=== PATIENT | male | born 1945 | race Caucasian/White ===

== ENCOUNTER → 2023-10-02 13:20 | Outpatient (REF) | payer MEDICARE, OTHER, SELFPAY ==
[2023-10-02 18:52] LABS: Urine Albumin Trace (Neg - Trace); Urine Bilirubin 1+ (Negative); Urine Character Clear (Clear); Urine Color Yellow; Urine Glucose Negative (Negative); Urine Ketone Trace (Negative); Urine Leukocyte Negative (Negative); Urine Nitrite Negative (Negative); Urine Occult Blood Trace (Negative); Urine Urobilinogen Negative (Neg - 1+)
[2023-10-02 19:18] LABS: Urine Red Blood Cell 0-2 /HPF (0-2); Urine White Cell 0-2 /HPF (0-5)
== END ==
LOC: CLAB 13:20
PROVIDERS: ATTENDING PHYSICIAN Specialist
DX: R31.29 Other microscopic hematuria (principal)
CPT/HCPCS: 81003; 81015

== ENCOUNTER 2024-07-13 20:06 | Inpatient (IN) | payer MEDICARE, OTHER, SELFPAY ==
[2024-07-13] VITALS (7 sets, daily range): BP systolic 103–136; BP diastolic 57–96; BMI 28.5
[2024-07-13 13:33] LABS: % Basophils 0.4 % (0-2); % Eosinophils 0.9 % (0-6); % Immature Granulocytes 0.5 % (0-0.5); % Lymphocytes 14.3 % (20.5-51.1); % Monocytes 8.6 % (1.7-9.3); % Neutrophils 75.3 % (42.2-75.2); Absolute Eosinophils 0.1 10^3/uL (0-0.7); Absolute Immature Granulocytes 0.1 10^3/uL (0-0.05); Absolute Lymphocytes 1.5 10^3/uL (1.2-3.4); Absolute Monocytes 0.9 10^3/uL (0.1-0.6); Absolute Neutrophils 7.8 10^3/uL (1.4-6.5); Hematocrit 43.2 % (39.0-52.0); Hemoglobin 14.4 g/dL (13.0-18.0); Mean Corp Hgb Conc. 33.3 g/dL (33.0-37.0); Mean Corpuscular Hgb 29.3 pg (27.0-31.0); Mean Platelet Volume 9.8 fL (7.4-10.4); Nucleated Red Blood Cells % 0 % (-); Platelet Count 147 10^3/uL (130-400); Red Blood Cell Count 4.91 10^6/uL (4.70-6.10); Red Cell Dist. Width 14.1 % (11.5-14.5); White Blood Cell Count 10.3 10^3/uL (4.8-10.8)
[2024-07-13 13:46] LABS: ALT (SGPT) 20 U/L (0-50); AST (SGOT) 22 U/L (17-59); Albumin 4.1 g/dl (3.5-5.0); Alkaline Phosphatase 132 U/L (38-126); Blood Urea Nitrogen 36 mg/dl (9-20); Carbon Dioxide 26 mmol/L (22-30); Chloride 106 mmol/L (98-107); Glucose 101 mg/dl (70-99); Potassium 4.7 mmol/L (3.5-5.1); Sodium 139 mmol/L (135-145); Total Bilirubin 0.6 mg/dl (0.2-1.3); Total Protein 6.7 g/dl (6.3-8.2); eGFR 56.93
[2024-07-13 13:53] LABS: APTT 27.1 Sec (23.4-35.0); INR 0.97; PT 13.2 Sec (11.4-14.6)
--- NOTE | 2024-07-13 16:10 | ED.GENMED ---
History of Present Illness
General
Chief Complaint: Circulation Problem
Time Seen by Provider: 07/13/24 15:48
History of Present Illness
History of Present Illness:
78-year-old male with history of hypertension, hyperlipidemia, and peripheral arterial disease presents to the emergency department for evaluation of bilateral lower extremity claudication. He reports having chronic, greater than 6 months of
claudication to the left lower extremity with progressive worsening paresthesias, over the past 1 to 2 days has developed similar symptoms in the right lower extremity. He states that he has significant tingling and discomfort even at rest however
pain dramatically worsens when ambulating. Prior history of AAA repair with endovascular graft. Continues to smoke more than a pack a day
Review of Systems
Review of Systems
Allergies reviewed?: Yes
All Other Systems: ROS reviewed and negative except as documented in HPI and ROS
Phy Exam
Physical Exam
Physical Exam:
GEN: Well appearing, NAD, WDWN
HEENT: Oral mucosa moist, no scleral icterus
Cardiac: Regular rate
Lung: No respiratory distress, no tachypnea
MSK: No gross deformity or injuries. Unable to locate DP pulses bilat, L PT pulse strong by doppler, unable to locate R PT pulse
Skin: Good color, no pallor or jaundice, no rashes
Neuro: AO x3, moves all extremities freely
Psych: Calm, cooperative
Course
Orders/Labs/Results
Orders:
Orders
07/13/24 Breakfast
Sodium, 2 Gram
At Your Request: Full Participation
Does patient need a safe tray?: No
Low Sodium: Cholesterol Lowering
07/13/24 13:25
Complete Blood Count/With Diff Urgent
Comprehensive Metabolic Panel Urgent
PT/INR [Prothrombin Time] Urgent
PTT Urgent
07/13/24 15:52
0.9% Sodium Chloride 1000 ml [Nss] 1,000 ml IV BOLUS
07/13/24 16:06
CT Abd Aorta Angio W/ Run Off Urgent
Comment:
Reason For Exam: B/L claudication/paresthesia, prior AAA repair
07/13/24 16:21
0.9% Sodium Chloride 1000 ml [Nss] 1,000 ml IV BOLUS
07/13/24 18:08
Heparin 7,000 units IV NOW STA
Nursing to Place Non Medication Order As Directed
Physician Order: PTT 6 hours after initial start of Heparin infusion
Above order entered?: Yes
07/13/24 18:15
Heparin 00732 Units/250 ml 25,000 units in 250 ml IV PER PROTOCOL
Weight to be used for heparin protocol in kilograms (kg):: 87.4
Protocol:: Vascular Surgery
PTT Goal Range to be used:: PTT 73 to 111 seconds
Order type:: Initial
INITIAL Infusion Dose (UNITS/KG/hr) & then follow protocol:: 18 units/kg/hr
Infusion Dose in UNITS/hr & then follow protocol (UNITS/hr):: 1,600
INFUSION RATE in mL/hr & then follow protocol (mL/hr):: 16
PTT less than or equal to 64 seconds:: Notify Ordering Provider. obtain orders for rate increase &
possible bolus
PTT 64.1 to 72.9 seconds:: Increase rate by 100 units/hr (+ 1 mL/hr)
PTT 73 to 111 seconds:: Target Range. No change in rate.
PTT 111.1 to 130.9 seconds:: Decrease rate by 100 units/hr (- 1 mL/hr)
PTT 131 to 199.9 seconds:: HOLD for 1 hour. Then decrease rate by 200 units/hr (- 2 mL/hr)
PTT greater than or equal to 200 seconds:: STOP INFUSION. Notify Ordering provider to obtain further orders.
Lab follow-up:: Each change, PTT q6h until 2 consecutive are therapeutic. Then PTT
daily.
07/13/24 19:16
Admit/Transfer Patient As Directed
Co-Sign Provider:
Level of Care: Inpatient admission
Assign to:: Telemetry
Physician / Group: Jarret
Diagnosis: RLE Ischemia
Reason for Telemetry: Arrhythmia
Date to Stop Telemetry: 07/16/24
Time to Stop Telemetry: 11:00
Reason for Hospitalization: Heparin drip
Expected length of stay greater than two midnights?: Yes
ELOS- Estimated Length of Stay in days: 3
I certify the patient meets the requirements for IP care: Yes
07/13/24 19:17
PRN Pain Medication Management As Directed
May give lesser potent ordered pain med per pt: Yes
preference::
Protocol:: Medication orders for pain may be administered in a
manner that supports deferring to patient preference
when the pt is:
- Requesting an ordered lesser potent pain medication.
Least to most potent pain medications are defined
as: acetaminophen < NSAID < tramadol < opioids
(morphine, oxycodone, hydromorphone).
- Requesting a lesser dose of the same medication IF
ORDERED.
- Requesting a less intrusive route of administration
if both routes are prescribed by the provider (PO <
IV).
07/13/24 19:18
Nicotine [Nicoderm Transdermal] 14 mg TRANSDERM NOW STA
07/13/24 19:19
Code Status As Directed
Resuscitation Status: Full Code
07/13/24 20:48
Acetaminophen [Tylenol] 650 mg PO Q4HPRN PRN
Amlodipine [Norvasc] 5 mg PO BID
07/13/24 20:48
Vascular Surgery Consult Routine
Consulting Provider: Bryan Daley III
Was physician already notified: Yes
Heparin Protocol- PTT Orders As Directed
PTT per Heparin protocol: -Obtain CBC and baseline PTT - if not already collected.
-Obtain PTT 6 hours from start of infusion. Then, every 6 hours until 2 consecutive
PTT's are therapeutic. Then, PTT Daily.
-With each rate change, obtain PTT every 6 hours until 2 consecutive PTT's are
therapeutic. Then, PTT Daily.
Activity As Directed
Activity Level: Out of Bed- Chair
Notify MD As Directed
Notify physician if: PTT is greater than or equal to 200.
Vital Signs As Directed
Frequency: Per unit guidelines
Weight As Directed
Frequency: Daily
Smoking Cessation Counseling [RESP] Routine
07/14/24 00:44
PTT Routine
07/14/24 Breakfast
NPO
Allow oral meds: Yes
Allow clear liquids: 4hrs prior to procedure
Comment: may have unrestricted clear liquid up to 4 hrs prior to scheduled procedure
Basic Metabolic Panel IN AM
Complete Blood Count/No Diff IN AM
Hgba1c [Glycohemoglobin (HgbA1c)] IN AM
Lipid Profile [Cardiovascular Evaluation] IN AM
07/14/24 08:00
Aspirin Low Dose EC [Aspir Low (Enteric Coated)] 81 mg PO DAILY
Finasteride [Proscar] 5 mg PO DAILY
Lisinopril [Zestril] 20 mg PO DAILY
Nicotine [Nicoderm Transdermal] 14 mg TRANSDERM DAILY
Oxybutynin Chloride [Ditropan] 2.5 mg PO BID
Pantoprazole [Protonix] 40 mg PO DAILY
Tiotropium Melissa 2.5 Mcg [Spiriva Respimat 2.5 Mcg] 2 puff INH R DAILY
07/14/24 18:00
Atorvastatin [Lipitor] 40 mg PO QPM
07/15/24 06:00
Complete Blood Count/No Diff Q2D
Comment: notify provider: Platelet count < 130,000 or decrease by 50% from baseline
07/16/24 11:00
DC Protocol for Telemetry ONCE
07/17/24 06:00
Complete Blood Count/No Diff Q2D
Comment: notify provider: Platelet count < 130,000 or decrease by 50% from baseline
07/19/24 06:00
Complete Blood Count/No Diff Q2D
Comment: notify provider: Platelet count < 130,000 or decrease by 50% from baseline
07/21/24 06:00
Complete Blood Count/No Diff Q2D
Comment: notify provider: Platelet count < 130,000 or decrease by 50% from baseline
07/23/24 06:00
Complete Blood Count/No Diff Q2D
Comment: notify provider: Platelet count < 130,000 or decrease by 50% from baseline
07/25/24 06:00
Complete Blood Count/No Diff Q2D
Comment: notify provider: Platelet count < 130,000 or decrease by 50% from baseline
07/27/24 06:00
Complete Blood Count/No Diff Q2D
Comment: notify provider: Platelet count < 130,000 or decrease by 50% from baseline
07/29/24 06:00
Complete Blood Count/No Diff Q2D
Comment: notify provider: Platelet count < 130,000 or decrease by 50% from baseline
Abnormal Lab Results
07/13/24
13:25
Abs Immat Gran (auto) 0.1 H 10^3/uL
(0-0.05)
Absolute Neuts (auto) 7.8 H 10^3/uL
(1.4-6.5)
Absolute Monos (auto) 0.9 H 10^3/uL
(0.1-0.6)
Neutrophils % 75.3 H %
(42.2-75.2)
Lymphocytes % 14.3 L %
(20.5-51.1)
BUN 36 H mg/dl
(9-20)
Glucose 101 H mg/dl
(70-99)
Alkaline Phosphatase 132 H U/L
(38-126)
07/13/24 13:25
03/31/25 13:25
Vital Signs
Initial and Last Documented VS:
Initial Vital Signs
Temp Pulse Resp BP Pulse Ox
98.8 F 87 20 124/76 96
07/13/24 13:09 07/13/24 13:09 07/13/24 13:09 07/13/24 13:09 07/13/24 13:09
Last Documented Vital Signs
Temp Pulse Resp BP Pulse Ox
98.8 F 76 17 127/82 97
07/13/24 13:09 07/13/24 21:22 07/13/24 21:22 07/13/24 21:22 07/13/24 21:22
MDM/Problems Addressed
MDM/Problems Addressed:
Imaging reveals critical limb ischemia predominantly of the right lower extremity but also severe high-grade stenosis of the left lower extremity. Case was discussed with vascular surgery who will see the patient in consultation, will admit for IV
heparin and further medical management
*Critical Care Note
Total Time (30-74mins, 75-104mins- exclusive of procedures): Not Applicable
ED Attending Note
-
Portions of this chart may have been created with voice recognition software.� Occasional wrong word or��sound alike� substitutions may have occurred due to the inherent limitations of voice recognition software.
Discharge Plan
Departure
Patient Disposition: Admit
Date of Disposition: 07/13/24
Time of Disposition: 18:44
Admit to: Med/Surg
Presentation/result/management discussed w/ accepting MD/DO: Hospitalist
Discharge Problem:
Critical limb ischemia of right lower extremity
Interventions
Interventions:
*Risk Screen - Suicide Last Done: 07/13/24 13:09
*General Assessment Last Done: 07/13/24 13:09
*Neglect/Abuse Screening Last Done: 07/13/24 16:55
*ED- Fall Risk Assessment Last Done: 07/13/24 15:50
*ED COVID-19 Vaccine History Last Done: 07/13/24 15:50
ED-Peripheral Vascular Assessment Last Done: 07/13/24 15:50
[2024-07-13] MEDS: NSS 1000 IV (16:21)
[2024-07-13] MEDS: HEPARIN 7000 UNITS IV (18:44)
[2024-07-13] MEDS: HEPARIN 25000 UNITS/250 ML IV (18:49)
--- NOTE | 2024-07-13 18:56 | W.PN.UPDATE ---
Update Note
Progress Note Update
Patient seen in conjunction with [facility]. I agree with the findings Physical. I concur with assessment and plan I stated otherwise.
Briefly, this is a 78-year-old male with past medical history significant for stable aortic abdominal aneurysm, hypertension, hyperlipidemia, history of carotid endarterectomy, LVH presenting to the emergency department with bilateral lower
extremity discomfort.
He reports having chronic, greater than 6 months of claudication to the left lower extremity with progressive worsening paresthesias, over the past 1 to 2 days has developed similar symptoms in the right lower extremity. He states that he has
significant tingling and discomfort even at rest however pain dramatically worsens when ambulating.
In the emergency department he was afebrile, blood pressure was 122/80 with a pulse of 87 and is satting 98% on room air. CBC was unremarkable stop electrolytes BUN/creatinine with stable with a creatinine of 1.3 which is his baseline.
CT angiogram of the abdomen pelvis with venous runoff shows here is an aortobiiliac endograft with stable size of the excluded aneurysm sac measuring 5.0 cm. There is a stable 5.5 cm suprarenal abdominal aortic aneurysm.
2. There is slightly increased size of the right common iliac artery aneurysm measuring 3.6 cm, previously 2.9 cm. There is complete occlusion of the proximal right superficial femoral artery with reconstitution at the level of the tibioperoneal
trunk. There is three-vessel runoff proximally without discrete opacification at the level of the ankle on initial images, however delayed images demonstrate single vessel runoff via the anterior tibial artery.. 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
3. There is similar size of the left common iliac artery dilation measuring 2.5 cm. 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 There
is one-vessel runoff at the level of the ankle via the peroneal vein.
4. Atrophic right kidney, unchanged.
5. Bilateral inguinal hernias with the left containing nonobstructed colon.
Assessment and plan
78-year-old with history of atherosclerotic disease status post carotid endarterectomy, hypertension, AAA which is stable appearing presenting to the emergency department with chronic claudication and found to have multiple all insufficiencies of
the lower extremities bilaterally including here is complete occlusion of the proximal right superficial femoral artery with reconstitution at the level of the tibioperoneal trunk. There is three-vessel runoff proximally without discrete
opacification at the level of the ankle on initial images, however delayed images demonstrate single vessel runoff via the anterior tibial artery.. 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
3. There is similar size of the left common iliac artery dilation measuring 2.5 cm. 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 There
is one-vessel runoff at the level of the ankle via the peroneal vein.
The plan is for neurovascular to attempt revascularization.
Will admit to [facility]
-Heparin drip
-Continue aspirin and statin and antihypertensive
-N.p.o. after midnight
-Vascular consult
Code Status - Full Code
--- NOTE | 2024-07-13 19:01 | HPS.HSE ---
Family Physician
-
Family Physician: Marcella Chavez
Chief Complaint
-
Numbness Right Lower Extremity
History of Present Illness
Patient is a 78 y/o male past medical history of peripheral artery disease s/p right carotid endarterectomy, AAA s/p endovascular repair, hypertension, hyperlipidemia, COPD and BPH who presents with numbness of the right lower extremity. Patient
reports symptoms consistent with claudication, reporting bilateral calf pain when mowing the lawn and weakness of the legs with activity for some time. Last night while sleeping his right lower extremity 'felt '. He called the vascular surgery
office who referred him to the emergency department for evaluation.
Medical History
Past Medical History
Past Medical History: Reports Other
Additional Past Medical History:
Peripheral Artery Disease
Essential Hypertension
Hyperlipidemia
COPD
BPH
GERD
Past Surgical History: Reports Other
Additional Past Surgical History:
Right Carotid Endarterectomy
Endovascular AAA Repair
Cholecystectomy
Social History
Tobacco: Smoker (1 PPD)
Alcohol: None
Family History
Family History: Not pertinent
Allergies / Home Medications
Allergies reflects when Allergies were last updated in [employer].
Home Medications with original date entered in [employer]
Allergy/Medication List:
Allergies
Allergy/AdvReac Type Severity Reaction Status Date / Time
No Known Allergies Allergy Verified 07/13/24 13:09
Home Medications
aspirin 81 mg tablet,delayed release (Ecotrin Low Strength) 81 mg PO DAILY 02/01/15
finasteride 5 mg tablet 5 mg PO DAILY 02/01/15
amlodipine 5 mg tablet 5 mg PO BID 03/12/18
atorvastatin 40 mg tablet 40 mg PO QPM 07/13/24
hydrochlorothiazide 25 mg tablet 25 mg PO QPM 07/13/24
omeprazole 40 mg capsule,delayed release 40 mg PO DAILY 07/13/24
oxybutynin chloride 5 mg tablet,extended release 24 hr 5 mg PO DAILY 07/13/24
tiotropium bromide 18 mcg capsule with inhalation device (Spiriva with HandiHaler) 1 cap inhalation R DAILY 07/13/24
trandolapril 2 mg tablet 2 mg PO DAILY 07/13/24
Review of Systems
-
A 12 point ROS was completed and negative except as noted: Yes
Constitutional: Denies Fever
Respiratory: Denies Cough or Trouble Breathing
Cardiac: Denies Chest Pain or Palpitations
Abdomen/GI: Denies Abdominal Pain, Nausea, Vomiting or Diarrhea
Physical Exam
Vital Signs
Vital Signs
Temp Pulse Resp BP Pulse Ox
98.8 F 87 20 122/80 98
07/13/24 13:09 07/13/24 13:09 07/13/24 13:09 07/13/24 15:49 07/13/24 15:50
Physical Exam
General: Comfortable and Conversant
HEENT: Anicteric, Moist mucous membranes and Other (Poor dentition)
Respiratory: Clear and Non Labored Respirations
Cardiac: S1/S2 and Regular Rhythm
GI: Soft and Non Tender
Musculoskeletal: No Clubbing, No Cyanosis and No Edema
Skin: Warm, Dry and Other (Skin is warm bilateral lower extremities)
Neuro: Awake, Alert, Oriented and Nonfocal/grossly intact
Psych: Calm
Laboratory Results
-
07/13/24 13:25
07/13/24 13:25
Laboratory Results
PT 13.2 Sec (11.4-14.6) 07/13/24 13:25
INR 0.97 07/13/24 13:25
APTT 27.1 Sec (23.4-35.0) 07/13/24 13:25
Total Bilirubin 0.6 mg/dl (0.2-1.3) 07/13/24 13:25
AST 22 U/L (17-59) 07/13/24 13:25
ALT 20 U/L (0-50) 07/13/24 13:25
Alkaline Phosphatase 132 U/L (38-126) H 07/13/24 13:25
Data Reviewed
-
Lab Data: Labs Reviewed by me
Impression/Plan
-
Right Lower Extremity Ischemia
-Consult Vascular Surgery
-Continue heparin drip
-NPO after midnight for possible intervention tomorrow
Peripheral Artery Disease s/p Right Carotid Endarterectomy
AAA s/p Endovascular Repair
-Continue aspirin
Essential Hypertension
-Continue amlodipine and trandolapril (or formulary substitute) with hold parameters
Hyperlipidemia
-Continue atorvastatin
COPD, no acute exacerbation
-Continue Spiriva
BPH
-Continue finasteride
GERD
-Continue Protonix
Tobacco Use Disorder / Nicotine Dependence
-Encourage smoking cessation
-Continue nicotine patch
DVT proph: Heparin drip
Code Status: Full Code
[2024-07-13] MEDS: NICODERM TRANSDERMAL 14 MG TRANSDERM (19:23)
[2024-07-13] MEDS: NORVASC 5 MG PO (21:19)
[2024-07-14] VITALS (16 sets, daily range): BP systolic 99–147; BP diastolic 61–111
[2024-07-14 01:27] LABS: APTT > 200 Sec (23.4-35.0)
[2024-07-14 03:56] LABS: Hematocrit 39.9 % (39.0-52.0); Hemoglobin 13.8 g/dL (13.0-18.0); Mean Corp Hgb Conc. 34.6 g/dL (33.0-37.0); Mean Corpuscular Hgb 30.3 pg (27.0-31.0); Mean Corpuscular Volume 87.7 fL (80.0-94.0); Platelet Count 129 10^3/uL (130-400); Red Blood Cell Count 4.55 10^6/uL (4.70-6.10); Red Cell Dist. Width 14.1 % (11.5-14.5); White Blood Cell Count 7.4 10^3/uL (4.8-10.8)
[2024-07-14 03:57] LABS: APTT 64.3 Sec (23.4-35.0)
[2024-07-14 04:25] LABS: Blood Urea Nitrogen 30 mg/dl (9-20); Calcium 9.6 mg/dl (8.4-10.2); Carbon Dioxide 26 mmol/L (22-30); Chloride 106 mmol/L (98-107); Estimated Creatinine Clearance 57 ml/min; Glucose 91 mg/dl (70-99); HDL Cholesterol 33 mg/dl; LDL Cholesterol, Calculated 55 mg/dl; Potassium 3.7 mmol/L (3.5-5.1); Sodium 139 mmol/L (135-145); Total Cholesterol 107 mg/dl (50-199); Triglyceride 98 mg/dl (10-149); Very Low Density Lipoprotein 19 mg/dl (0-30); eGFR > 60.00
[2024-07-14] MEDS: DITROPAN 2.5 MG PO ×2 (08:04→20:15)
[2024-07-14] MEDS: ASPIR LOW (ENTERIC COATED) 81 MG PO (08:04)
[2024-07-14] MEDS: ZESTRIL 20 MG PO (08:04)
[2024-07-14] MEDS: PROTONIX 40 MG PO (08:04)
[2024-07-14] MEDS: PROSCAR 5 MG PO (08:04)
[2024-07-14] MEDS: NORVASC 5 MG PO (08:05)
[2024-07-14] MEDS: NICODERM TRANSDERMAL 14 MG TRANSDERM (08:06)
--- NOTE | 2024-07-14 09:00 | W.PN.HOSP.TC ---
Today's Communication/Plan
-
Ongoing discussion between vascular and patient regarding treatment and timing
Heparin ggt for now
Assessment / Plan
Assessment / Plan
78-year-old male with past medical history of peripheral artery disease status post right carotid endarterectomy, AAA status post endovascular repair presents to [facility] with numbness of the right lower extremity. On FC T, complete
occlusion of proximal right superficial femoral artery noted along with occluded proximal popliteal artery aneurysm. 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
CT IMPRESSION:
1. There is an aortobiiliac endograft with stable size of the excluded aneurysm sac measuring 5.0 cm. There is a stable 5.5 cm suprarenal abdominal aortic aneurysm.
2. There is slightly increased size of the right common iliac artery aneurysm measuring 3.6 cm, previously 2.9 cm. There is complete occlusion of the proximal right superficial femoral artery with reconstitution at the level of the tibioperoneal
trunk. There is three-vessel runoff proximally without discrete opacification at the level of the ankle on initial images, however delayed images demonstrate single vessel runoff via the anterior tibial artery.. 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
3. There is similar size of the left common iliac artery dilation measuring 2.5 cm. 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 There
is one-vessel runoff at the level of the ankle via the peroneal vein.
4. Atrophic right kidney, unchanged.
5. Bilateral inguinal hernias with the left containing non-obstructed colon.
#Right lower extremity ischemia
-Continue heparin drip
-Vascular surgery appreciated
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
-Discussion regarding timing ongoing between vascular and patient
-Diet today as no operation planned for today
# Extensive peripheral artery disease
-History of right carotid endarterectomy
-History of AAA status post endovascular repair
-Continue aspirin
#thrombocytopenia
-close to normal limits 129
-Monitor
#Hypertension
� Continue amlodipine and trandolapril
#Hyperlipidemia
-Continue statin
#COPD
-Not in acute exacerbation
-Continue Spiriva
#BPH/overactive bladder
-Continue finasteride
-Continue oxybutynin
#GERD
-continue Protonix
#Tobacco use disorder
-Smoking 1 pack of cigarettes per day since the age of 11
-Continue nicotine patch
-Encourage smoking sensation
DVT Heparin ggt
Full Code
Anticipated Discharge: > 48 hours
Subjective/Interval History
-
Date of Service: July 14, 2024
Objective Data
-
Labs:
Laboratory Results
07/14/24 07/14/24 07/14/24
00:36 03:39 03:40
WBC 7.4
Hgb 13.8
Hct 39.9
Plt Count 129 L
APTT > 200 H* 64.3 H
Sodium 139
Potassium 3.7
Chloride 106
Carbon Dioxide 26
BUN 30 H
Creatinine 1.1
Glucose 91
Calcium 9.6
07/14/24
11:00
WBC
Hgb
Hct
Plt Count
APTT Pending
Sodium
Potassium
Chloride
Carbon Dioxide
BUN
Creatinine
Glucose
Calcium
Vital Signs:
Vital Signs
Temp Pulse Resp BP Pulse Ox
97.7 F 91 18 128/75 93
07/14/24 07:30 07/14/24 08:05 07/14/24 07:30 07/14/24 08:05 07/14/24 07:30
I&O
07/13/24 07/14/24 07/15/24
06:59 06:59 06:59
Output Total 950 / 950
Balance -950 / -950
Review of Systems
-
History Source: Patient
Constitutional: Reports No Symptoms
EENT: Reports No Symptoms Reported
Respiratory: Reports No Symptoms
Cardiac: Reports No Symptoms
Abdomen/GI: Reports No Symptoms
Genitourinary: Reports No Symptoms
Musculoskeletal: Reports Other (Right lower extremity numbness, pain with exertion )
Neuro: Reports No Symptoms
Physical Exam
-
General: No Apparent Distress
HEENT: Normocephalic
Respiratory: Clear to Auscultation
Cardiac: Regular Rhythm and S1/S2
GI: Soft, Nontender, Nondistended and Normal Bowel Sounds
Musculoskeletal: No Edema and Other (Peripheral pulses intact )
Skin: Warm and Dry
Neuro: AO x 3
[2024-07-14 09:44] LABS: Glycohemoglobin (HgbA1c) 5.7 % (4.0-5.6)
--- NOTE | 2024-07-14 10:24 | CON.VAS ---
Addendum entered and electronically signed by Renuka HUONG Ochoa 07/21/24 09:33:
Patient's transition to scheduling vascular surgical intervention for right lower extremity PAD has been complicated by a positive stress test which led to a cardiac catheterization and successful PCI to mid right coronary artery. He underwent
diagnostic right lower extremity angiogram yesterday with Dr. Bryan Daley III, revascularization plan for right lower extremity would include RIGHT redo groin dissection, possible need for femoral endarterectomy, iliac artery stent placement for
coverage of iliac artery aneurysm distal to prior stent placement and coil embolization of internal iliac artery, he will also require SFA to AT arterial bypass with propatent graft. However, patient has indicated on several occasions that he is
not willing to stay much longer inpatient due to his social economic concerns at home (his has advanced stage pancreatic cancer). Over discussion with patient it seems best solution would be to discharge him and then bring him back in short
interval as an outpatient for above recommended surgery. Patient indicates he is agreeable to this plan, as it gives him some time to go home to care for his and arrange care in the future for her while he requires admission following vascular
surgical intervention. I provided patient education and stressed in great detail his continued compliance with follow-up with not just as but also cardiology and PCP going forward if he wants to have optimal outcomes. I also stressed that not
complying with recommended surgery could lead to limb loss or even (as patient stated he would never be agreeable to amputation). He reiterated education and provided understanding. I also provided education in great detail of worsening
signs and symptoms of ischemia including increased rest pain, discoloration to digits, coolness, paresthesia, or increased/changed pain from baseline, I then stressed if any signs or symptoms occur of worsening ischemia or any concerning change to
his baseline claudication symptoms he should present to ED immediately. He again verbalized understanding of teaching. We will have our office air conditioning technician reach out to patient to schedule his surgery. I reviewed this plan with the medical team via
[place] text, and all parties are in agreement. This plan was also reviewed with my attending Dr. Bryan Daley III, he is also in agreement.
Addendum entered and electronically signed by Bryan Daley III, MD 07/14/24 13:32:
This patient was seen and examined in collaboration with HUONG Becerril. I agree with the history and physical exam as well as the assessment and plan. I have the following additions:
78-year-old male with previous endovascular aortic stent grafting and carotid endarterectomy
Lost to follow-up
Continues to smoke a pack a day
Chronic bilateral lower extremity claudication that has progressed recently
Reports symptoms consistent with rest pain for months to years in his lower extremities
No open wounds or ulcerations
Had an exacerbation of discomfort in the right leg that brought him to the emergency department yesterday
CT angiogram personally reviewed and reveals patent aortic stent graft. Right common iliac artery aneurysm distal to the end of the iliac limb measuring 3.5 cm. Patent right external iliac artery. Calcified common femoral artery. Occluded right
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
On physical exam is gross neuro motor function in the legs, feet and toes is intact. Feet are pink. No open wounds or ulcerations. Monophasic Doppler signals are identified in the dorsalis pedis and posterior tibial artery on the right.
Currently has no pain.
We provided him an option to continue with workup and intervention which will likely include endovascular intervention on his right common iliac aneurysm coupled with open revascularization of his right lower extremity occlusive disease.
Unfortunately he has significant lower extremity venous disease as well and has had prior vein stripping which will likely make vein conduit suboptimal. Lower extremity distal bypass with prosthetic is less than ideal. The technical aspects of
this procedure were discussed with him in detail. The benefits and rationale for this approach were discussed with him in detail. Operative risks were discussed with him in detail.
Unfortunately he has a with advanced pancreatic cancer. He is worried about leaving her at home for prolonged hospital stay and postsurgical recovery. He may want to leave and continue diagnostic workup and management as an outpatient so that
he can care for his .
We will nan[place]k back with him later this afternoon to determine how he would like to proceed. I discussed this in detail with the hospitalist caring for the patient.
Signed:
Bryan Daley III, MD
[facility]
[phone] ([id number])
Original Note:
Consultation
Consultation Request
Date/Time Consultation Performed: 07/14/24
Requesting Provider: Hospitalist
Performing Provider: Renuka Lee, TRAPPER BIRD-C for Bryan Daley III, MD
Reason for Consultation: Right lower extremity pain concern for claudication
Medical History
-
Chief Complaint: Right lower extremity pain
History of Present Illness:
This is a 78-year-old male with significant past medical history for COPD, GERD, hypertension, carotid stenosis, AAA, and peripheral arterial disease who presented to outside hospital on 07/13/2024 with reports of worsening right lower extremity pain
and paresthesia. Patient endorses that he has been having ongoing chronic bilateral lower extremity claudication-like pain but normally is able to 'power through 'and walk distances as needed, including walking his dog. However, over the past 3 to
4 days he has noted increasing claudication pain at his right lower extremity particularly that is now limited his ability to walk desired distances and intermittently wakes him at night. He does have a history of peripheral arterial disease and
endovascular repair of AAA [place] [address] Chi Wheeler. He notes that he was lost to follow-up and has not seen a vascular provider in roughly 9 years. He also has a distant history of right carotid endarterectomy, which she has also not
followed up with routine surveillance or monitoring. ED workup included CT angio with runoff which demonstrated increased size of right common iliac artery aneurysm with complete occlusion of right SFA, with occluded popliteal artery aneurysm but
one-vessel runoff to the foot. Patient currently endorses that he is comfortable with well-managed pain at right foot.
Past Medical History
Past Medical History: COPD, GERD, HTN and Other (Peripheral arterial disease, carotid stenosis, BPH, hyperlipidemia, AAA)
Past Surgical History: Other (Right Carotid Endarterectomy, Endovascular AAA Repair, Cholecystectomy)
Social History
Tobacco: Smoker (1 pack/day)
Drug: None
Personal:
Living: With Family
Allergies / Home Medications
Allergy/AdvReac Type Severity Reaction Status Date / Time
No Known Allergies Allergy Verified 07/13/24 13:09
�Medication �Instructions �Recorded �Confirmed �Type
aspirin 81 mg tablet,delayed 81 mg PO DAILY 02/01/15 07/13/24 History
release (Ecotrin Low Strength)
finasteride 5 mg tablet 5 mg PO DAILY 02/01/15 07/13/24 History
amlodipine 5 mg tablet 5 mg PO BID 03/12/18 07/13/24 History
atorvastatin 40 mg tablet 40 mg PO QPM 07/13/24 07/13/24 History
hydrochlorothiazide 25 mg tablet 25 mg PO QPM 07/13/24 07/13/24 History
omeprazole 40 mg capsule,delayed 40 mg PO DAILY 07/13/24 07/13/24 History
release
oxybutynin chloride 5 mg 5 mg PO DAILY 07/13/24 07/13/24 History
tablet,extended release 24 hr
tiotropium bromide 18 mcg capsule 1 cap inhalation R DAILY 07/13/24 07/13/24 History
with inhalation device (Spiriva
with HandiHaler)
trandolapril 2 mg tablet 2 mg PO DAILY 07/13/24 07/13/24 History
Review of Systems
-
History Source: Patient
Constitutional: Reports No Symptoms
EENT: Reports No Symptoms
Respiratory: Reports No Symptoms
Cardiac: Reports No Symptoms
Vascular: Reports Leg Pain / Claudication, Numbness and Tingling
Abdomen/GI: Reports No Symptoms
: Reports No Symptoms
Musculoskeletal: Reports Edema (Bilateral lower extremities with trace edema)
Skin: Reports No Symptoms
Neurological: Reports No Symptoms
Endocrine: Reports No Symptoms
Physical Exam
Vital Signs
Temp Pulse Resp BP Pulse Ox
97.7 F 91 18 128/75 93
07/14/24 07:30 07/14/24 08:05 07/14/24 07:30 07/14/24 08:05 07/14/24 07:30
Lab Results
07/14/24 03:40
07/14/24 03:39
Physical Exam
General: No Apparent Distress
HEENT: Normocephalic, Anicteric and Atraumatic
Respiratory: Non Labored Respirations
Cardiac: Negative JVD
GI: Soft, Non Tender and Non Distended
Musculoskeletal: Edema (Bilateral lower extremities with trace edema)
Skin: Dry
Neuro: AO x 3
Pulses: Bilateral Femoral: +1, Right Dorsalis Pedis: Doppler and Right Posterior Tibial: Doppler
Assessment / Plan
-
Assessment: 78-year-old male with right lower extremity pain and significant peripheral arterial disease, suspect a component of chronicity.
Plan:
Patient will require extensive surgical revascularization to improve claudication/rest pain including right femoral endarterectomy with right arterial bypass, and right iliac artery stenting for increasing aneurysm. Patient was seen and examined
with Dr. Bryan Daley III, who reviewed in detail what surgical options he would recommend for the patient. Patient verbalized his concern for a prolonged hospitalization as his is at home with stage IV pancreatic cancer and he is her sole
caregiver. Since patient has Doppler signals, we also could consider discharging patient on oral anticoagulation and bring him back for scheduled surgery in short interval. Patient has requested time to consider his options and review them with
his . We will revisit patient to review his decision.
In the meantime we will also obtain ultrasound vein mapping and baseline GURU/TBI
Final surgical plan and recommendations per attending Dr. Bryan Daley III
[2024-07-14] MEDS: SPIRIVA RESPIMAT 2.5 MCG 2 PUFF INH (10:32)
[2024-07-14 11:20] LABS: APTT 47.1 Sec (23.4-35.0)
--- NOTE | 2024-07-14 13:13 | W.PN.UPDATE ---
Update Note
Progress Note Update
I saw and evaluated the patient. I reviewed the resident�s note and agree with findings and plan as documented in the resident�s note.
CTA a/p
1. There is an aortobiiliac endograft with stable size of the excluded aneurysm sac measuring 5.0 cm. There is a stable 5.5 cm suprarenal abdominal aortic aneurysm.
2. There is slightly increased size of the right common iliac artery aneurysm measuring 3.6 cm, previously 2.9 cm. There is complete occlusion of the proximal right superficial femoral artery with reconstitution at the level of the tibioperoneal
trunk. There is three-vessel runoff proximally without discrete opacification at the level of the ankle on initial images, however delayed images demonstrate single vessel runoff via the anterior tibial artery.. 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
3. There is similar size of the left common iliac artery dilation measuring 2.5 cm. 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 There
is one-vessel runoff at the level of the ankle via the peroneal vein.
4. Atrophic right kidney, unchanged.
5. Bilateral inguinal hernias with the left containing nonobstructed colon.
PAD
Right lower limb ischemia
-CT abdomen pelvis report as above
-Art Doppler ordered
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
is on 27 july.
Peripheral Artery Disease s/p Right Carotid Endarterectomy
AAA s/p Endovascular Repair
-Continue aspirin
Essential Hypertension
-Continue amlodipine and trandolapril (or formulary substitute) with hold parameters
Hyperlipidemia
-Continue atorvastatin
COPD, no acute exacerbation
-Continue Spiriva
BPH
-Continue finasteride
GERD
-Continue Protonix
Tobacco Use Disorder / Nicotine Dependence
-Encourage smoking cessation
-Continue nicotine patch
DVT prophylaxis : heparin subq
Code Status: Full Code
--- NOTE | 2024-07-14 13:30 | W.PN.UPDATE ---
Update Note
Progress Note Update
Came back to bedside to see if patient had made decision about proceeding with surgery while inpatient or electing to go home and have short interval outpatient follow-up, patient states that he and his still have not made a decision and would
like that we come back again at a later time.
[2024-07-14] MEDS: HEPARIN 25000 UNITS/250 ML IV (14:35)
--- NOTE | 2024-07-14 17:43 | VATNOTE ---
L Arm AC IV line d/c due to infiltrate. Pt is on a heparin drip site with excessive bleeding after pressue applied. Pressure dressing applied with multpile 2x2 gauge and joseph wrap. PCN made aware.
[2024-07-14] MEDS: LIPITOR 40 MG PO (18:09)
--- NOTE | 2024-07-14 18:23 | PTCARENOTE ---
Pt's PTT was 47.1 this afternoon, per Heparin gtt orders, physician notified as per protocol. No new orders were placed. I again reached out to the physican that orders were need to adjust the gtt. Attending deligated to resident. Pharacy notified
by to assist w/ dose. Heparin gtt remained at 1700 units/hr during this time. Once orders were obtained, 6hrs had passed since inital PTT assessment. PTT sent @ 1740, pensing. Will review results and follow protocol.
[2024-07-14] MEDS: NORVASC PO (20:15)
[2024-07-15 00:18] LABS: APTT 147.3 Sec (23.4-35.0)
[2024-07-15 03:35] VITALS: BP 92/66
[2024-07-15 05:27] VITALS: BMI 27.9
[2024-07-15 07:35] VITALS: BP 130/65
[2024-07-15] MEDS: PROTONIX 40 MG PO (07:44)
[2024-07-15] MEDS: DITROPAN 2.5 MG PO ×2 (07:46→19:52)
[2024-07-15] MEDS: NORVASC 5 MG PO (07:46)
[2024-07-15] MEDS: ZESTRIL 20 MG PO (07:46)
[2024-07-15] MEDS: ASPIR LOW (ENTERIC COATED) 81 MG PO (07:46)
[2024-07-15] MEDS: PROSCAR 5 MG PO (07:46)
[2024-07-15] MEDS: NICODERM TRANSDERMAL 14 MG TRANSDERM (07:47)
--- NOTE | 2024-07-15 07:57 | W.PN.HOSP.TC ---
Today's Communication/Plan
-
Cont heparin ggt
vascular surgery date per vascular
Assessment / Plan
Assessment / Plan
78-year-old male with past medical history of peripheral artery disease status post right carotid endarterectomy, AAA status post endovascular repair presents to [facility] with numbness of the right lower extremity. On FC T, complete
occlusion of proximal right superficial femoral artery noted along with occluded proximal popliteal artery aneurysm. 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
CT IMPRESSION:
1. There is an aortobiiliac endograft with stable size of the excluded aneurysm sac measuring 5.0 cm. There is a stable 5.5 cm suprarenal abdominal aortic aneurysm.
2. There is slightly increased size of the right common iliac artery aneurysm measuring 3.6 cm, previously 2.9 cm. There is complete occlusion of the proximal right superficial femoral artery with reconstitution at the level of the tibioperoneal
trunk. There is three-vessel runoff proximally without discrete opacification at the level of the ankle on initial images, however delayed images demonstrate single vessel runoff via the anterior tibial artery.. 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
3. There is similar size of the left common iliac artery dilation measuring 2.5 cm. 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 There
is one-vessel runoff at the level of the ankle via the peroneal vein.
4. Atrophic right kidney, unchanged.
5. Bilateral inguinal hernias with the left containing non-obstructed colon.
#Right lower extremity ischemia
-Continue heparin drip
-Vascular surgery appreciated
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
-Pt decided he wanted to stay to do the procedure
-Diet today as no operation planned for today - likely saturday
-Cardiology consult for pre-op clearance
# Extensive peripheral artery disease
-History of right carotid endarterectomy
-History of AAA status post endovascular repair
-Continue aspirin
#thrombocytopenia
-Monitor
#Hypertension
� Continue amlodipine and trandolapril
#Hyperlipidemia
-Continue statin
#COPD
-Not in acute exacerbation
-Continue Spiriva
#BPH/overactive bladder
-Continue finasteride
-Continue oxybutynin
#GERD
-continue Protonix
#Tobacco use disorder
-Smoking 1 pack of cigarettes per day since the age of 11
-Continue nicotine patch
-Encourage smoking sensation
DVT Heparin ggt
Full Code
Anticipated Discharge: > 48 hours
Subjective/Interval History
-
Date of Service: July 15, 2024
Objective Data
-
Labs:
Laboratory Results
07/14/24 07/15/24
23:54 07:50
WBC Pending
Hgb Pending
Hct Pending
Plt Count Pending
APTT 147.3 H Pending
Sodium Pending
Potassium Pending
Chloride Pending
Carbon Dioxide Pending
BUN Pending
Creatinine Pending
Glucose Pending
Calcium Pending
Vital Signs:
Vital Signs
Temp Pulse Resp BP Pulse Ox
98.0 F 63 14 130/65 97
07/15/24 07:35 07/15/24 07:46 07/15/24 07:35 07/15/24 07:46 07/15/24 07:35
I&O
07/14/24 07/15/24 07/16/24
06:59 06:59 06:59
Intake Total 1404 / 1404
Output Total 950 / 950
Balance -950 / -950 1404 / 1404
Review of Systems
-
History Source: Patient
Constitutional: Reports No Symptoms
EENT: Reports No Symptoms Reported
Respiratory: Reports No Symptoms
Cardiac: Reports No Symptoms
Abdomen/GI: Reports No Symptoms
Musculoskeletal: Reports Other (Right leg numbness )
Neuro: Reports No Symptoms
Physical Exam
-
General: No Apparent Distress and Comfortable
Respiratory: Clear to Auscultation
Cardiac: Regular Rhythm and S1/S2
GI: Soft, Nontender, Nondistended and Normal Bowel Sounds
Musculoskeletal: Other (Distal pulses intact )
Neuro: AO x 3
Psych: Calm
[2024-07-15] MEDS: SPIRIVA RESPIMAT 2.5 MCG 2 PUFF INH (08:06)
[2024-07-15 08:07] LABS: Hematocrit 41.6 % (39.0-52.0); Mean Corp Hgb Conc. 33.7 g/dL (33.0-37.0); Mean Corpuscular Hgb 29.5 pg (27.0-31.0); Mean Corpuscular Volume 87.8 fL (80.0-94.0); Mean Platelet Volume 9.7 fL (7.4-10.4); Platelet Count 134 10^3/uL (130-400); Red Blood Cell Count 4.74 10^6/uL (4.70-6.10); Red Cell Dist. Width 14.4 % (11.5-14.5)
[2024-07-15 08:16] LABS: APTT 136.5 Sec (23.4-35.0)
--- NOTE | 2024-07-15 09:08 | W.PN.UPDATE ---
Update Note
Progress Note Update
Informed by hospitalist and resident that patient has decided to stay inpatient for right lower extremity arterial bypass, tentative plan is for OR on 07/17/2024 for diagnostic right lower extremity angiogram in order to determine bypass target
points, and then we will plan for arterial bypass early next week. He should continue on heparin drip for anticoagulation. He will also require cardiology evaluation for clearance given his longstanding history of peripheral arterial disease,
smoking, and medical noncompliance with follow-up. Plan relayed to hospitalist.
[2024-07-15] MEDS: HEPARIN 25000 UNITS/250 ML IV ×2 (10:13→15:28)
--- NOTE | 2024-07-15 10:39 | CM ---
CM following rte: discharge planning.
Reviewed pt's cart, met with pt.
Pt is a 78 year old male, admitted with primary dx of Right lower extremity ischemia. PMH includes: PMH includes: peripheral artery disease status post right carotid endarterectomy, AAA status post endovascular repair
Pt reports he lives with spouse and 2 dogs in a 2SH, 3 steps to enter, has no children. Pt described himself as independent in all areas [employer], does not use any mobile devices, drives.
PCP: Marcella Chavez
[facility]
D/C plan: home with anticipated no needs. Spouse to transport at discharge.
CM will follow with discharge plan updates as hospitalization progresses
[2024-07-15 12:24] VITALS: BP 123/65
[2024-07-15 12:36] LABS: Blood Urea Nitrogen 34 mg/dl (9-20); Calcium 9.9 mg/dl (8.4-10.2); Carbon Dioxide 25 mmol/L (22-30); Chloride 107 mmol/L (98-107); Estimated Creatinine Clearance 48 ml/min; Glucose 91 mg/dl (70-99); Sodium 140 mmol/L (135-145); eGFR 56.93
--- NOTE | 2024-07-15 12:54 | CON.CAR ---
Addendum entered and electronically signed by Josiah Shaikh MD 07/15/24 15:19:
I saw and examined the patient.
The Antiquer's note was reviewed and I agree with the note.
Comment:
GEN: No distress, awake, Ox3
HEENT: supple, anicteric, mmm
LUNGS: CTA, no wheezes/rales
CV: Reg, S1/S2, 1/6 syst LSB, no gallop
ABD: soft, BS+, NT/ND
EXT: R foot swelling
NEURO: Gross non-focal
SKIN: No rash
Plan:
78-year-old male with past medical history of severe peripheral vascular disease, AAA repair, carotid artery disease, hypertension, hyperlipidemia and continued tobacco abuse presents with occlusion of right proximal SFA and popliteal artery
aneurysm. Plan is for angiogram with likely lower extremity revascularization early next week. We are asked to see him preoperatively.
Mr. Arias is unable to perform 4 metabolic equivalents and has a coronary artery disease equivalent with multiple risk factors for CAD including hypertension hyperlipidemia and current tobacco abuse. Check ECG.
We will check a Lexiscan nuclear stress test and echocardiogram prior to his surgery.
Continue amlodipine, lisinopril, aspirin, atorvastatin, and IV heparin.
LDL 55.
We discussed the importance of smoking cessation and I will continue the nicotine patch while hospitalized.
Original Note:
Consultation
Consultation Request
Date/Time Consultation Performed: 07/15/24
Requesting Provider: Dr. Capps
Performing Provider: Maxine Neal PA-C for Dr. Shaikh
Reason for Consultation: preop evaluation
Medical History
-
Chief Complaint: altered sensation RLE
History of Present Illness:
Patient is a 78 yo M with PMH of AAA repair with endovascular graft, iliac artery aneurysms, carotid disease s/p R CEA, HTN, HLD, ongoing tobacco use who presented to due to altered sensation to RLE noted over the last several days prior to
admission. He reports feeling of RLE heaviness. He also reports he has been dealing with LLE claudication. By imaging patient noted to have complete occlusion of prox R SFA, occluded prox popliteal artery aneurysm, high grade stenosis of distal
superficial femoral artery with partially thrombosed aneurysm of prox popliteal artery. Planned for angiogram with vascular on 07/17 with likely RLE bypass surgery early next week. Cardiology consulted for preop evaluation. Patient reports activity
has been limited by leg discomfort/claudication, however denies CP, SOB. He continues to smoke.
PMH:
AAA repair with endovascular graft
iliac artery aneurysms
carotid disease s/p R CEA
HTN
HLD
ongoing tobacco use
Past Medical History
Past Medical History: Other (in HPI)
Social History
Tobacco: Smoker
Alcohol: None
Personal:
Living: With Family
Employment: Retired
Family History
Family History: Reviewed & Not Pertinent
Allergies / Home Medications
Allergy/AdvReac Type Severity Reaction Status Date / Time
No Known Allergies Allergy Verified 07/13/24 13:09
�Medication �Instructions �Recorded �Confirmed �Type
aspirin 81 mg tablet,delayed 81 mg PO DAILY 02/01/15 07/13/24 History
release (Ecotrin Low Strength)
finasteride 5 mg tablet 5 mg PO DAILY 02/01/15 07/13/24 History
amlodipine 5 mg tablet 5 mg PO BID 03/12/18 07/13/24 History
atorvastatin 40 mg tablet 40 mg PO QPM 07/13/24 07/13/24 History
hydrochlorothiazide 25 mg tablet 25 mg PO QPM 07/13/24 07/13/24 History
omeprazole 40 mg capsule,delayed 40 mg PO DAILY 07/13/24 07/13/24 History
release
oxybutynin chloride 5 mg 5 mg PO DAILY 07/13/24 07/13/24 History
tablet,extended release 24 hr
tiotropium bromide 18 mcg capsule 1 cap inhalation R DAILY 07/13/24 07/13/24 History
with inhalation device (Spiriva
with HandiHaler)
trandolapril 2 mg tablet 2 mg PO DAILY 07/13/24 07/13/24 History
Review of Systems
-
History Source: Patient and Family
All other systems: Negative unless noted
Physical Exam
Vital Signs
Temp Pulse Resp BP Pulse Ox
97.6 F 72 22 123/65 99
07/15/24 12:24 07/15/24 12:24 07/15/24 12:24 07/15/24 12:24 07/15/24 12:24
Lab Results
07/15/24 07:50
07/15/24 07:50
Physical Exam
General: No Apparent Distress and Comfortable
HEENT: Normocephalic, Anicteric and Moist Mucous Membranes
Respiratory: Clear and Non Labored Respirations
Cardiac: S1/S2 and Regular Rhythm
GI: Soft, Non Tender, Non Distended and Normal Bowel Sounds
Musculoskeletal: No Clubbing, No Cyanosis and Other (varicose veins B/L LE)
Skin: Warm and Dry
Neuro: AO x 3
Impression / Plan
-
Primary Golf Tournament Consultant: last seen by Dr. Wheeler in 2014
Assessment:
Presentation with altered sensation/pain to RLE
PAD/RLE ischemia
AAA repair with endovascular graft
iliac artery aneurysms
carotid disease s/p R CEA
HTN
HLD
BPH
GERD
COPD/ongoing tobacco use
ECHO 06/2013: EF 60%, moderate to severe concentric LVH, no regional wall motion abnormalities noted, mildly dilated LA, mild MR, dilated aortic root
Plan:
-Patient presented with altered sensation and pain to his right lower extremity with concern for claudication and ischemia in the setting of known PAD. He is tentatively planned for angiogram later this week and right lower extremity bypass early
next week per vascular. Cardiology consulted for preop evaluation
-He is without complaints of chest pain or shortness of breath, however has smoked since age 11, and has evidence of carotid disease and peripheral arterial disease. Based on this we will plan for Lexiscan nuclear stress test in a.m. N.p.o. after
midnight.
-Check EKG
-Check echo
-Nursing tells me he was taken off telemetry per protocol earlier today. Was in sinus rhythm earlier today. will resume in setting of upcoming procedures
-Blood pressure stable on outpatient Norvasc 5 mg twice daily, lisinopril 20 mg daily. Holding outpatient hydrochlorothiazide. Creatinine 1.3
-Continue aspirin, Lipitor, IV heparin
-d/w nursing
-d/w patient and at bedside
Data Reviewed
-
Medical Tests (Nuc Med, Echo etc): Report Reviewed by me
Labs: Labs Reviewed by me
Old Records: Reviewed
--- NOTE | 2024-07-15 13:02 | W.PN.UPDATE ---
Update Note
Progress Note Update
I saw and evaluated the patient. I reviewed the resident�s note and agree with findings and plan as documented in the resident�s note.

CTA a/p
1. There is an aortobiiliac endograft with stable size of the excluded aneurysm sac measuring 5.0 cm. There is a stable 5.5 cm suprarenal abdominal aortic aneurysm.
2. There is slightly increased size of the right common iliac artery aneurysm measuring 3.6 cm, previously 2.9 cm. There is complete occlusion of the proximal right superficial femoral artery with reconstitution at the level of the tibioperoneal
trunk. There is three-vessel runoff proximally without discrete opacification at the level of the ankle on initial images, however delayed images demonstrate single vessel runoff via the anterior tibial artery.. 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
3. There is similar size of the left common iliac artery dilation measuring 2.5 cm. 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 There
is one-vessel runoff at the level of the ankle via the peroneal vein.
4. Atrophic right kidney, unchanged.
5. Bilateral inguinal hernias with the left containing nonobstructed colon.

PAD
Right lower limb ischemia
-CT abdomen pelvis report as above
-Art Doppler ordered
-Vascular surgery evaluated and after discussion patient agreeable to go for angiography on Saturday, tentative bypass next week.
Peripheral Artery Disease s/p Right Carotid Endarterectomy
AAA s/p Endovascular Repair
-Continue aspirin
Essential Hypertension
-Continue amlodipine and trandolapril (or formulary substitute) with hold parameters
Hyperlipidemia
-Continue atorvastatin
COPD, no acute exacerbation
-Continue Spiriva
BPH
-Continue finasteride
GERD
-Continue Protonix
Tobacco Use Disorder / Nicotine Dependence
-Encourage smoking cessation
-Continue nicotine patch
DVT prophylaxis : heparin subq
Code Status: Full Code
[2024-07-15 15:00] VITALS: BP 108/58
[2024-07-15 17:18] LABS: APTT 80.8 Sec (23.4-35.0)
[2024-07-15] MEDS: LIPITOR 40 MG PO (18:01)
[2024-07-15] MEDS: NORVASC PO (19:56)
[2024-07-15] MEDS: NICORETTE 2 MG PO (20:48)
[2024-07-15 23:03] VITALS: BP 121/67
[2024-07-15 23:53] LABS: APTT 75.2 Sec (23.4-35.0)
[2024-07-16 06:00] VITALS: BMI 28.0
[2024-07-16 07:02] VITALS: BP 121/72
[2024-07-16] MEDS: NORVASC 5 MG PO (07:38)
[2024-07-16] MEDS: ASPIR LOW (ENTERIC COATED) 81 MG PO (07:38)
[2024-07-16] MEDS: PROTONIX 40 MG PO (07:38)
[2024-07-16] MEDS: ZESTRIL 20 MG PO (07:39)
[2024-07-16] MEDS: DITROPAN 2.5 MG PO ×2 (07:39→20:40)
[2024-07-16] MEDS: PROSCAR 5 MG PO (07:39)
[2024-07-16] MEDS: NICODERM TRANSDERMAL 14 MG TRANSDERM (07:39)
--- NOTE | 2024-07-16 07:49 | W.PN.CARDCBS ---
Today's Communication / Plan
-
lexiscan stress test
may require cath pending results given new cardiomyopathy by results of echo
coreg added. stop norvasc
GDMT of CM as able
continue asa, IV heparin, statin
Impression / Plan
-
Primary Loss Prevention Coordinator: last seen by Dr. Wheeler in 2014
Assessment:
Presentation with altered sensation/pain to RLE
PAD/RLE ischemia
AAA repair with endovascular graft
iliac artery aneurysms
carotid disease s/p R CEA
LBBB
HTN
HLD
BPH
GERD
COPD/ongoing tobacco use
ECHO 06/2013: EF 60%, moderate to severe concentric LVH, no regional wall motion abnormalities noted, mildly dilated LA, mild MR, dilated aortic root
Echo 07/15/24: EF 15 to 20%, global hypokinesis with regional variations, mild concentric LVH, stage I diastolic dysfunction, mild to moderate MR, no pericardial effusion, ascending aorta diameter 4.3 cm
Plan:
-Patient presented with altered sensation and pain to his right lower extremity with concern for claudication and ischemia in the setting of known PAD. He is tentatively planned for angiogram Monday 07/17 and right lower extremity bypass early next
week per vascular. Cardiology consulted for preop evaluation
-He is without complaints of chest pain or shortness of breath, however has smoked since age 11, and has evidence of carotid disease and peripheral arterial disease.
-EKG SR with LBBB, new compared to 2014. [address] back on tele in periop setting
-echo with new reduction in EF compared to 2014, EF 15-20%
-he is currently undergoing lexiscan stress test. based on results of echo and EKG, in addition to lexiscan results, may require cardiac catheterization prior to vascular procedures.
-Cr 1.3. in setting of cardiomyopathy, will stop norvasc in favor of coreg. continue lisinopril. holding OP HCTZ for now. will have CM assess cost to patient of entresto/farxiga.
-consider check trop and proBNP as part of preop eval
-Continue aspirin, IV heparin
-LDL 55. continue statin
-tobacco cessation discussed with patient
Progress Note - Loss Prevention Coordinator
Subjective
Date of Service: July 16, 2024
denies CP, SOB
Objective
Labs:
07/15/24 07:50
Labs
Hgb 14.0 g/dL (13.0-18.0) 07/15/24 07:50
Hct 41.6 % (39.0-52.0) 07/15/24 07:50
Plt Count 134 10^3/uL (130-400) 07/15/24 07:50
PT 13.2 Sec (11.4-14.6) 07/13/24 13:25
INR 0.97 07/13/24 13:25
APTT 75.2 Sec (23.4-35.0) H 07/15/24 23:32
Sodium 140 mmol/L (135-145) 07/15/24 07:50
Potassium 4.0 mmol/L (3.5-5.1) 07/15/24 07:50
BUN 34 mg/dl (9-20) H 07/15/24 07:50
Creatinine 1.3 mg/dL (0.7-1.3) 07/15/24 07:50
Glucose 91 mg/dl (70-99) 07/15/24 07:50
Vital Signs and I&O:
Vital Signs
Temp Pulse Resp BP Pulse Ox
98 F 64 17 121/72 98
07/16/24 07:02 07/16/24 07:39 07/16/24 07:02 07/16/24 07:39 07/16/24 07:02
Vital Signs
Temp Pulse Resp BP Pulse Ox
98 F 64 17 121/72 98
07/16/24 07:02 07/16/24 07:39 07/16/24 07:02 07/16/24 07:39 07/16/24 07:02
Intake & Output
07/13/24 07/14/24 07/15/24 07/16/24
07:59 07:59 07:59 07:59
Intake Total 1404 / 1884 852 / 852
Output Total 950 / 950 400 / 400
Balance -950 / -950 1404 / 1884 452 / 452
Physical Exam
Physical Exam
GEN: No distress, awake, alert, oriented x3
HEENT: supple, anicteric, mmm, eomi
LUNGS: CTA B/L, no wheezes/rales
CV: Reg, S1/S2, no murmur
ABD: soft, BS+, NT/ND
EXT: No cyanosis, clubbing. Trace edema of B/L LE with varicose veins
NEURO: Gross non-focal
SKIN: Warm, pink, dry. No rash
--- NOTE | 2024-07-16 07:50 | W.PN.HOSP.TC ---
Today's Communication/Plan
-
Cont heparin ggt
Stress test per cards
Assessment / Plan
Assessment / Plan
78-year-old male with past medical history of peripheral artery disease status post right carotid endarterectomy, AAA status post endovascular repair presents to [facility] with numbness of the right lower extremity. On FC T, complete
occlusion of proximal right superficial femoral artery noted along with occluded proximal popliteal artery aneurysm. 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
CT IMPRESSION:
1. There is an aortobiiliac endograft with stable size of the excluded aneurysm sac measuring 5.0 cm. There is a stable 5.5 cm suprarenal abdominal aortic aneurysm.
2. There is slightly increased size of the right common iliac artery aneurysm measuring 3.6 cm, previously 2.9 cm. There is complete occlusion of the proximal right superficial femoral artery with reconstitution at the level of the tibioperoneal
trunk. There is three-vessel runoff proximally without discrete opacification at the level of the ankle on initial images, however delayed images demonstrate single vessel runoff via the anterior tibial artery.. 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
3. There is similar size of the left common iliac artery dilation measuring 2.5 cm. 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 There
is one-vessel runoff at the level of the ankle via the peroneal vein.
4. Atrophic right kidney, unchanged.
5. Bilateral inguinal hernias with the left containing non-obstructed colon.
#Right lower extremity ischemia
-Continue heparin drip
-Vascular surgery appreciated
-Bypass likely saturday
-Cardiology consult for pre-op clearance
-Echo done 15-20% LVEF with stage 1 diastolic dysfunction
-Stress test scheduled for today
#HFrEF
-Echo 15-20%, reduced from prior in 2013 60%EF
-Does endorse occasional leg swelling, but no SOB or orthopnea
-Cardiology following
-Will likely start gdmt medications
# Extensive peripheral artery disease
-History of right carotid endarterectomy
-History of AAA status post endovascular repair
-Continue aspirin
#thrombocytopenia
-Monitor
#Hypertension
� Continue amlodipine and trandolapril
#Hyperlipidemia
-Continue statin
#COPD
-Not in acute exacerbation
-Continue Spiriva
#BPH/overactive bladder
-Continue finasteride
-Continue oxybutynin
#GERD
-continue Protonix
#Tobacco use disorder
-Smoking 1 pack of cigarettes per day since the age of 11
-Continue nicotine patch
-Encourage smoking sensation
DVT Heparin ggt
Full Code
Anticipated Discharge: > 48 hours
Subjective/Interval History
-
Date of Service: July 16, 2024
Objective Data
-
Labs:
Laboratory Results
07/15/24 07/16/24
23:32 06:39
WBC Pending
Hgb Pending
Hct Pending
Plt Count Pending
APTT 75.2 H Pending
Vital Signs:
Vital Signs
Temp Pulse Resp BP Pulse Ox
98 F 64 17 121/72 98
07/16/24 07:02 07/16/24 07:39 07/16/24 07:02 07/16/24 07:39 07/16/24 07:02
I&O
07/15/24 07/16/24 07/17/24
06:59 06:59 06:59
Intake Total 1404 / 1404 852 / 852
Output Total 400 / 400
Balance 1404 / 1404 452 / 452
Review of Systems
-
History Source: Patient
Constitutional: Reports No Symptoms
EENT: Reports No Symptoms Reported
Respiratory: Reports No Symptoms
Cardiac: Reports No Symptoms
Abdomen/GI: Reports No Symptoms
Genitourinary: Reports No Symptoms
Musculoskeletal: Reports No Symptoms
Skin: Reports No Symptoms
Neuro: Reports No Symptoms
Physical Exam
-
General: No Apparent Distress and Comfortable
HEENT: Normocephalic
Respiratory: Clear to Auscultation
Cardiac: Regular Rhythm and S1/S2
GI: Soft, Nontender, Nondistended and Normal Bowel Sounds
Musculoskeletal: No Edema and Other (Decreased peripheral pulses in right lower extremity )
Skin: Warm and Dry
Neuro: AO x 3
[2024-07-16 07:53] LABS: APTT 78.8 Sec (23.4-35.0)
[2024-07-16 08:00] LABS: Hemoglobin 12.9 g/dL (13.0-18.0); Mean Corp Hgb Conc. 33.1 g/dL (33.0-37.0); Mean Corpuscular Hgb 29.7 pg (27.0-31.0); Mean Corpuscular Volume 89.7 fL (80.0-94.0); Mean Platelet Volume 10.5 fL (7.4-10.4); Platelet Count 122 10^3/uL (130-400); Red Blood Cell Count 4.35 10^6/uL (4.70-6.10); Red Cell Dist. Width 14.3 % (11.5-14.5); White Blood Cell Count 7.3 10^3/uL (4.8-10.8)
--- NOTE | 2024-07-16 08:42 | W.PN.CARDCBS ---
Today's Communication / Plan
-
Lexiscan nuclear stress test
Optimize goal-directed medical therapy for cardiomyopathy, currently compensated
IV heparin
Impression / Plan
-
Primary Machine Load Clerk: last seen by Dr. Wheeler in 2014
Assessment:
Presentation with altered sensation/pain to RLE
PAD/RLE ischemia
AAA repair with endovascular graft
iliac artery aneurysms
carotid disease s/p R CEA
LBBB
HTN
HLD
BPH
GERD
COPD/ongoing tobacco use
ECHO 06/2013: EF 60%, moderate to severe concentric LVH, no regional wall motion abnormalities noted, mildly dilated LA, mild MR, dilated aortic root
Echo 07/15/24: EF 15 to 20%, global hypokinesis with regional variations, mild concentric LVH, stage I diastolic dysfunction, mild to moderate MR, no pericardial effusion, ascending aorta diameter 4.3 cm
Plan:
Medically complex 78-year-old male with right lower extremity pain/claudication and significant peripheral arterial disease and CT angio with runoff which demonstrated increased size of right common iliac artery aneurysm with complete occlusion of
right SFA, with occluded popliteal artery aneurysm but one-vessel runoff to the foot who is felt to require extensive surgical revascularization to improve claudication/rest pain including right femoral endarterectomy with right arterial bypass, and
right iliac artery stenting for increasing aneurysm.
-Appreciate vascular consult with plan for peripheral angiogram Monday 07/17
-Continue IV heparin drip
-Cardiac risk stratification/optimization ongoing
New cardiomyopathy dilated cardiomyopathy with severely reduced left ventricular systolic function estimated visually 15 to 20% with global hypokinesis. Echocardiogram with mild to moderate mitral regurgitation, trace tricuspid regurgitation and no
hemodynamically significant aortic valve disease. Estimated pulmonary artery pressures 25-30 mmHg. Ascending aorta mildly dilated at 4.3 cm. Findings are new from last echocardiogram in 2013.
-Fortunately he appears relatively euvolemic
-He denies chest pain or pressure prior to hospitalization suggestive of angina however overall is a challenging historian
-EKG SR with LBBB, new compared to 2015.
-Please continue telemetry monitoring in the perioperative period
-He is scheduled for a Lexiscan nuclear stress test today; pending findings may need cardiac catheterization
-Pertinent labs: Sodium 140, potassium 4, BUN and creatinine 34/1.3, hemoglobin A1c 5.7%. AST/ALT within normal limits. Alkaline phosphatase 132. Total cholesterol 107, HDL 55, LDL 33, triglycerides 98. Hemoglobin 12.9, previously 14. Platelets
122�147,000.
-Blood pressures/heart rate stable. Oxygen saturation 98% on room air.
-Goal-directed medical therapy will need to be initiated this hospitalization: Will discontinue amlodipine in favor of carvedilol. Continue lisinopril for now and consider changing to Entresto prior to discharge following vascular procedures.
Eventual addition of SGLT2 inhibitor; we will ask case management to check cost.
-At this point I do not feel that he requires diuretics but will follow volume status closely
-Check proBNP for baseline; check TSH
-Continue aspirin and IV heparin: Monitor hemoglobin and platelets closely
-Lipid profile at goal; continue atorvastatin 40 mg daily.
History of AAA status post endovascular repair
-Vascular following
-Continue aspirin/statin
Carotid disease status post right CEA
-Will defer to vascular surgery but will need repeat imaging
Longstanding tobacco dependence with COPD�stable
-Will check a chest x-ray in preparation for surgery
-tobacco cessation discussed with patient
Social concerns: Patient's Kristine has pancreatic cancer and he is worried about her being home alone during his hospitalization. Consider social service consult
Progress Note - Machine Load Clerk
Subjective
Date of Service: July 16, 2024
Seen and examined prior to stress testing. Overall no complaints at rest. No chest pain or pressure. Denies shortness of breath or cough.
Objective
Labs:
07/16/24 06:39
07/15/24 07:50
Labs
Hgb 12.9 g/dL (13.0-18.0) L 07/16/24 06:39
Hct 39.0 % (39.0-52.0) 07/16/24 06:39
Plt Count 122 10^3/uL (130-400) L 07/16/24 06:39
PT 13.2 Sec (11.4-14.6) 07/13/24 13:25
INR 0.97 07/13/24 13:25
APTT 78.8 Sec (23.4-35.0) H 07/16/24 06:39
Sodium 140 mmol/L (135-145) 07/15/24 07:50
Potassium 4.0 mmol/L (3.5-5.1) 07/15/24 07:50
BUN 34 mg/dl (9-20) H 07/15/24 07:50
Creatinine 1.3 mg/dL (0.7-1.3) 07/15/24 07:50
Glucose 91 mg/dl (70-99) 07/15/24 07:50
Vital Signs and I&O:
Vital Signs
Temp Pulse Resp BP Pulse Ox
98 F 64 17 121/72 98
07/16/24 07:02 07/16/24 07:39 07/16/24 07:02 07/16/24 07:39 07/16/24 07:02
Vital Signs
Temp Pulse Resp BP Pulse Ox
98 F 64 17 121/72 98
07/16/24 07:02 07/16/24 07:39 07/16/24 07:02 07/16/24 07:39 07/16/24 07:02
Intake & Output
07/14/24 07/15/24 07/16/24 07/17/24
06:59 06:59 06:59 06:59
Intake Total 1404 / 1404 852 / 852
Output Total 950 / 950 400 / 400
Balance -950 / -950 1404 / 1404 452 / 452
Physical Exam
Physical Exam
General: No acute distress, AAOX3
Neck: Negative JVD; hx CEA
Heart: Regular, positive S1/S2, No murmur
Lungs: Bronchovesicular breath sounds, clear
Abd: Positive BS, NT/ND, neg rebound/rigidity/guarding
Ext: No edema, open wounds or ulcerations. Cool distal extremities.
Neuro: nonfocal
[2024-07-16] MEDS: LEXISCAN 0.4 MG IV (09:58)
[2024-07-16] MEDS: AMINOPHYLLINE 75 MG IV (09:59)
[2024-07-16] MEDS: SPIRIVA RESPIMAT 2.5 MCG INH (11:03)
[2024-07-16 13:00] LABS: NT-proBNP 338 pg/ml
[2024-07-16 13:36] VITALS: BP 120/88
[2024-07-16] MEDS: HEPARIN 25000 UNITS/250 ML IV (14:15)
[2024-07-16 15:30] VITALS: BP 116/68
--- NOTE | 2024-07-16 15:36 | W.PN.UPDATE ---
Update Note
Progress Note Update
physicians discussed results of echo and stress test with vascular and patient. plan for cath in AM, likely angio on Saturday. Patient could then stay for LE bypass vs return as OP as he is eager for DC. will continue to follow.
--- NOTE | 2024-07-16 16:34 | PTCARENOTE ---
Pt awaiting transfer to [facility]. Pt vitals stable. Heparin gtt at 11ml/hr. Pt will order dinner. No C/O at this time.
[2024-07-16] MEDS: LIPITOR 40 MG PO (17:37)
--- NOTE | 2024-07-16 18:08 | PTCARENOTE ---
Report given to Luzmaria on . Pt being transported via wheelchair at this time.
[2024-07-16 18:21] VITALS: BP 107/73
--- NOTE | 2024-07-16 18:28 | PTCARENOTE ---
patient received from [facility], aaox3, reports no discomfort at this time. Heparin at 11ml/hr. patient situated in room and given call puente.
[2024-07-16 20:04] VITALS: BP 105/68
[2024-07-16] MEDS: COREG 3.125 MG PO (20:39)
[2024-07-16] MEDS: NICORETTE 2 MG PO (22:10)
[2024-07-16 23:09] VITALS: BP 116/62
[2024-07-17] VITALS (17 sets, daily range): BP systolic 89–145; BP diastolic 52–102; BMI 28.0
[2024-07-17] MEDS: SPIRIVA RESPIMAT 2.5 MCG 2 PUFF INH (07:44)
[2024-07-17] MEDS: ASPIR LOW (ENTERIC COATED) 81 MG PO (08:05)
[2024-07-17] MEDS: DITROPAN 2.5 MG PO ×2 (08:05→20:01)
[2024-07-17] MEDS: COREG PO (08:05)
[2024-07-17] MEDS: NICODERM TRANSDERMAL TRANSDERM (08:06)
[2024-07-17] MEDS: ZESTRIL PO (08:06)
[2024-07-17] MEDS: PROTONIX 40 MG PO (08:06)
[2024-07-17] MEDS: PROSCAR 5 MG PO (08:06)
[2024-07-17 08:07] LABS: Hematocrit 37.4 % (39.0-52.0); Hemoglobin 12.7 g/dL (13.0-18.0); Mean Corpuscular Hgb 30.1 pg (27.0-31.0); Mean Corpuscular Volume 88.6 fL (80.0-94.0); Platelet Count 122 10^3/uL (130-400); Red Blood Cell Count 4.22 10^6/uL (4.70-6.10); Red Cell Dist. Width 14.3 % (11.5-14.5); White Blood Cell Count 6.9 10^3/uL (4.8-10.8)
[2024-07-17 08:12] LABS: APTT 70.5 Sec (23.4-35.0)
--- NOTE | 2024-07-17 08:59 | W.PN.HOSP.TC ---
Addendum entered and electronically signed by Delta Capps MD 07/17/24 13:48:
I saw and evaluated the patient. I reviewed the resident�s note and agree with findings and plan as documented in the resident�s note.

CTA a/p
1. There is an aortobiiliac endograft with stable size of the excluded aneurysm sac measuring 5.0 cm. There is a stable 5.5 cm suprarenal abdominal aortic aneurysm.
2. There is slightly increased size of the right common iliac artery aneurysm measuring 3.6 cm, previously 2.9 cm. There is complete occlusion of the proximal right superficial femoral artery with reconstitution at the level of the tibioperoneal
trunk. There is three-vessel runoff proximally without discrete opacification at the level of the ankle on initial images, however delayed images demonstrate single vessel runoff via the anterior tibial artery.. 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
3. There is similar size of the left common iliac artery dilation measuring 2.5 cm. 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 There
is one-vessel runoff at the level of the ankle via the peroneal vein.
4. Atrophic right kidney, unchanged.
5. Bilateral inguinal hernias with the left containing nonobstructed colon.

PAD
Right lower limb ischemia
-CT abdomen pelvis report as above
-Art Doppler ordered
-Vascular surgery evaluated and after discussion patient agreeable to go for angiography likely Mon after cardiac clearance
Peripheral Artery Disease s/p Right Carotid Endarterectomy
AAA s/p Endovascular Repair
-Continue aspirin
Chronic systolic/diastolic HF
-Echocardiogram showed patient have ventricular systolic dysfunction with EF of 50 to 20% global hypokinesis without regional wall motion defect. Stage I diastolic dysfunction
-Cardiology evaluated and patient underwent nuclear stress test which was normal
-Patient is planned to get [facility] today
Essential Hypertension
-Continue amlodipine and trandolapril (or formulary substitute) with hold parameters
Hyperlipidemia
-Continue atorvastatin
COPD, no acute exacerbation
-Continue Spiriva
BPH
-Continue finasteride
GERD
-Continue Protonix
Tobacco Use Disorder / Nicotine Dependence
-Encourage smoking cessation
-Continue nicotine patch
DVT prophylaxis : heparin subq
Code Status: Full Code
Original Note:
Today's Communication/Plan
-
Cardiac cath
Assessment / Plan
Assessment / Plan
78-year-old male with past medical history of peripheral artery disease status post right carotid endarterectomy, AAA status post endovascular repair presents to [facility] with numbness of the right lower extremity. On FC T, complete
occlusion of proximal right superficial femoral artery noted along with occluded proximal popliteal artery aneurysm. 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
CT IMPRESSION:
1. There is an aortobiiliac endograft with stable size of the excluded aneurysm sac measuring 5.0 cm. There is a stable 5.5 cm suprarenal abdominal aortic aneurysm.
2. There is slightly increased size of the right common iliac artery aneurysm measuring 3.6 cm, previously 2.9 cm. There is complete occlusion of the proximal right superficial femoral artery with reconstitution at the level of the tibioperoneal
trunk. There is three-vessel runoff proximally without discrete opacification at the level of the ankle on initial images, however delayed images demonstrate single vessel runoff via the anterior tibial artery.. 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
3. There is similar size of the left common iliac artery dilation measuring 2.5 cm. 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 There
is one-vessel runoff at the level of the ankle via the peroneal vein.
4. Atrophic right kidney, unchanged.
5. Bilateral inguinal hernias with the left containing non-obstructed colon.
#Right lower extremity ischemia
-Continue heparin drip
-Vascular surgery appreciated
-Bypass postponed to likely saturday as pt requires cardiac cath for evaluation of low EF noted on echo
-LVEF 15-20%, lexiscan stress test inconclusive for ischemia
#HFrEF
-Echo 15-20%, reduced from prior in 2013 60%EF
-Does endorse occasional leg swelling, but no SOB or orthopnea
-Cardiology following
-d/c amlodipine and add carvedilol for gdmt per cards
# Extensive peripheral artery disease
-History of right carotid endarterectomy
-History of AAA status post endovascular repair
-Continue aspirin
#thrombocytopenia
-Monitor
#Hypertension
� Continue amlodipine and trandolapril
#Hyperlipidemia
-Continue statin
#COPD
-Not in acute exacerbation
-Continue Spiriva
#BPH/overactive bladder
-Continue finasteride
-Continue oxybutynin
#GERD
-continue Protonix
#Tobacco use disorder
-Smoking 1 pack of cigarettes per day since the age of 11
-Continue nicotine patch
-Encourage smoking sensation
DVT Heparin ggt
Full Code
Anticipated Discharge: > 48 hours
Subjective/Interval History
-
Date of Service: July 17, 2024
Frustrated with the amount of time he has had to be in the hospital. Wants to go home to take care of his with stage 4 pancreatic cancer.
Objective Data
-
Labs:
Laboratory Results
07/17/24
07:49
WBC 6.9
Hgb 12.7 L
Hct 37.4 L
Plt Count 122 L
APTT 70.5 H
Vital Signs:
Vital Signs
Temp Pulse Resp BP Pulse Ox
97.8 F 64 18 89/58 95
07/17/24 08:00 07/17/24 08:00 07/17/24 08:00 07/17/24 08:06 07/17/24 08:00
I&O
07/16/24 07/17/24 07/18/24
06:59 06:59 06:59
Intake Total 852 / 852 420 / 420
Output Total 400 / 400 1200 / 1200
Balance 452 / 452 -780 / -780
Review of Systems
-
History Source: Patient
EENT: Reports No Symptoms Reported
Respiratory: Reports No Symptoms
Cardiac: Reports No Symptoms
Abdomen/GI: Reports No Symptoms
Genitourinary: Reports No Symptoms
Musculoskeletal: Reports Other (Numbness in RLE )
Neuro: Reports No Symptoms
Physical Exam
-
General: No Apparent Distress and Comfortable
HEENT: Normocephalic
Respiratory: Clear to Auscultation
Cardiac: Regular Rhythm and S1/S2
GI: Soft, Nontender, Nondistended and Normal Bowel Sounds
Musculoskeletal: No Edema and Other (Peripheral pulses intact, decreased in RLE but present, Capillary refill good. Warm and well perfused. )
Skin: Warm and Dry
Neuro: AO x 3
Psych: Calm
[2024-07-17] MEDS: NICORETTE 2 MG PO (11:37)
[2024-07-17] MEDS: HEPARIN 25000 UNITS/250 ML IV (11:42)
--- NOTE | 2024-07-17 13:30 | CM ---
CM reviewed chart, consult received for cost of Entresto 24/26 mg BID, Farxiga 10 mg. Call to patients pharmacy, left voicemail requesting return call regarding cost of medications. Patient for cardiac cath today. CM will continue to follow for all
discharge planning needs.
Plan; home with family, watch for VN needs (would be VN in [place])
[2024-07-17 14:46] LABS: ACT-LR - POC 256 Seconds (116-155)
[2024-07-17 14:55] LABS: ACT-LR - POC 306 Seconds (116-155)
--- NOTE | 2024-07-17 15:29 | ITS.CL.CATH ---
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
Cardiac Catheterization
Procedure Report:
LEFT HEART CATH AND CORONARY INTERVENTION
Date of Procedure: July 17, 2024
Referring: Dr. James Shaikh
PROCEDURES:
1. Left heart catheterization with coronary angiography
2. Successful stenting of the mid right coronary artery with placement of a 2.75 x 26 mm [place] stent that was postdilated with a 3.5 mm noncompliant balloon
3. Intravascular ultrasound
INDICATION: This is a 78-year-old gentleman with a dilated cardiomyopathy and prior history of abdominal aortic aneurysm with endograft repair. He presented for evaluation of lower extremity claudication and was found to have a right common iliac
artery aneurysm at the distal edge of the endograft as well as an occluded superficial femoral artery and popliteal artery aneurysm. He was seen by vascular surgery and was scheduled for an angiogram for possible surgical bypass. The Lexiscan
Myoview reveals a large, severe, predominantly fixed inferior, inferoseptal, anteroseptal, and mid to distal anterior and apical perfusion defect with an estimated ejection fraction of 31%.
ACCESS: Right radial artery, 6 Japanese sheath
HEMODYNAMICS (mmHg):
AO (s/d, m) : 140/68, 94
LV (s/d) : 140/13
LVEDP : 21
CORONARY FINDINGS
Dominance: Right
LEFT MAIN: Normal
LEFT ANTERIOR DESCENDING: The LAD arises normally from the left main and runs in the anterior interventricular groove. The mid LAD has a 40% stenosis near the origin of the first septal senior chemist and the remainder of the LAD has diffuse luminal
irregularities but no focal obstructive stenosis.
RAMUS: Large caliber ramus intermedius with minor irregularities
CIRCUMFLEX: The circumflex is a nondominant vessel giving rise to small OM1 and OM 2. The circumflex continues in the AV groove terminating into distal posterolateral branches.
RIGHT CORONARY: The right coronary artery is a dominant vessel with an eccentric 70% mid stenosis. The distal RCA is patent and bifurcates into a small caliber PDA and a small to medium caliber posterolateral branch
VENTRICULOGRAPHY: Not done
ANGIOPLASTY PROCEDURE DETAIL: Upon review of the diagnostic catheterization films the decision was made to proceed with stenting of the mid right coronary artery. A 600 mg loading dose of clopidogrel was administered prior to the interventional
procedure and heparin was given to maintain therapeutic ACT. The origin of the right coronary artery was cannulated with a 6 Japanese JR4 guiding catheter. A BMW guidewire was advanced into the distal right coronary artery. Primary stenting was
performed with placement of a 2.75 x 26 mm Alejandro stent that was implanted at nominal pressures. Intravascular ultrasound was performed and utilized to guide post dilation. The distal vessel was postdilated with a 3.5 mm noncompliant balloon between
6 and 8 salud while the more proximal stented segment was postdilated to high-pressure 18-20 salud
SEDATION: 51 minutes of procedural sedation was utilized. An independent medical physiologist was present to assist with and help manage the patient's level of consciousness and physiologic status
RADIATION SUMMARY: Fluoro Time (min): 10.3, Dose (mGy): 1358, DAP (Gy.cm2) : 107
CONCLUSIONS
1. Successful stenting of the mid right coronary artery with placement of a 2.75 x 26 mm Alejandro stent that was postdilated to high pressures with a 3.5 mm noncompliant balloon
2. Mildly elevated left ventricular filling pressures
RECOMMENDATIONS
1. Uninterrupted aspirin and clopidogrel for 6 to 12 months
2. High intensity statin
3. Guideline directed medical therapy for LV dysfunction
Copy to: Dr. James Shaikh
--- NOTE | 2024-07-17 15:30 | PTCARENOTE ---
Report given to Luzmaria in IVU. 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 Belongings will be brought to pt's room when claened.
[2024-07-17] MEDS: NSS 1000 IV (15:46)
--- NOTE | 2024-07-17 15:49 | CM ---
Addendum entered by Francheska Mclaughlin RN 07/17/24 16:29:
Notified Maxine Ángel. I will place a free 30 day coupon in the patient's red discharge folder.
Original Note:
priced meds with pt perscrip plan [facility] [phone]. [facility] copay is $15/month. his entresto requires a prior auth ( the # to call is [phone])
--- NOTE | 2024-07-17 16:33 | W.PN.UPDATE ---
Update Note
Progress Note Update
Cost of Farxiga $15 for 30-day supply. Entresto will need prior authorization. Will start Farxiga. Can consider transition to Entresto if patient agreeable, presently on lisinopril 20mg daily.
--- NOTE | 2024-07-17 16:39 | PTCARENOTE ---
Patient received post cardiac cath technologist at 1624. AAOx3 reports no discomfort at this time. TR band in place, VS within normal limits.
[2024-07-17] MEDS: LIPITOR 40 MG PO (16:46)
[2024-07-17] MEDS: FARXIGA 10 MG PO (16:50)
[2024-07-17] MEDS: COREG 3.125 MG PO (20:01)
--- NOTE | 2024-07-17 22:21 | W.PN.UPDATE ---
Update Note
Progress Note Update
-per Dr. Graza, will restart iv Heparin at midnight for PAD with 1000 unit bolus and prior rate of 1300 units/hr.
--- NOTE | 2024-07-17 22:42 | PTCARENOTE ---
Assumed care of the pt @1900. Pt is AAOx3 SR with first degree HB and BBB VSS. Rt R band removed @ 1999 dressing c/d/i. Rt leg warm + doppler DP and PT. Heparin gtt to resume @ midnight with 1000 unit bolus as per Dr Jason Garza. Pt was updated with
plan of care and verbalized understanding. Call puente within reach.
[2024-07-18] MEDS: HEPARIN 1000 UNITS IV (00:27)
[2024-07-18] MEDS: HEPARIN 25000 UNITS/250 ML IV ×2 (00:28→20:25)
[2024-07-18 04:08] VITALS: BP 117/66
[2024-07-18 04:17] VITALS: BMI 27.8
[2024-07-18 06:50] LABS: APTT 82.9 Sec (23.4-35.0)
[2024-07-18 07:15] LABS: Blood Urea Nitrogen 24 mg/dl (9-20); Calcium 9.7 mg/dl (8.4-10.2); Carbon Dioxide 24 mmol/L (22-30); Chloride 110 mmol/L (98-107); Estimated Creatinine Clearance 52 ml/min; Glucose 92 mg/dl (70-99); Potassium 4.1 mmol/L (3.5-5.1); Sodium 141 mmol/L (135-145); eGFR > 60.00
[2024-07-18 07:43] LABS: Hematocrit 40.3 % (39.0-52.0); Hemoglobin 13.5 g/dL (13.0-18.0); Mean Corp Hgb Conc. 33.5 g/dL (33.0-37.0); Mean Corpuscular Volume 89.6 fL (80.0-94.0); Mean Platelet Volume 10.3 fL (7.4-10.4); Platelet Count 122 10^3/uL (130-400); Red Cell Dist. Width 14.1 % (11.5-14.5); White Blood Cell Count 8.6 10^3/uL (4.8-10.8)
[2024-07-18] MEDS: ASPIR LOW (ENTERIC COATED) 81 MG PO (07:43)
[2024-07-18] MEDS: FARXIGA 10 MG PO (07:43)
[2024-07-18] MEDS: DITROPAN 2.5 MG PO ×2 (07:43→20:25)
[2024-07-18] MEDS: PLAVIX 75 MG PO (07:43)
[2024-07-18] MEDS: PROTONIX 40 MG PO (07:43)
[2024-07-18] MEDS: PROSCAR 5 MG PO (07:43)
[2024-07-18 07:44] VITALS: BP 121/80
[2024-07-18] MEDS: COREG 3.125 MG PO ×2 (07:45→20:25)
[2024-07-18] MEDS: ZESTRIL 20 MG PO (07:45)
[2024-07-18] MEDS: NICODERM TRANSDERMAL 14 MG TRANSDERM (07:46)
[2024-07-18] MEDS: SPIRIVA RESPIMAT 2.5 MCG 2 PUFF INH (08:36)
--- NOTE | 2024-07-18 08:48 | W.PN.CARDCBS ---
Today's Communication / Plan
-
Stable cardiology status status post RCA stent
Plan for arteriogram on 07/20/2024 by vascular surgery
Stable cardiology status for vascular surgery procedure
Continue IV heparin per vascular surgery
Impression / Plan
-
Primary Bank Consultant: last seen by Dr. Wheeler in 2014
Assessment:
Presentation with altered sensation/pain to RLE
PAD/RLE ischemia
Severe cardiomyopathy with ejection fraction of 15 to 20% - 07/15/2024
CAD status post RCA stent on 07/17/2024
AAA repair with endovascular graft
iliac artery aneurysms
carotid disease s/p R CEA
LBBB
HTN
HLD
BPH
GERD
COPD/ongoing tobacco use
ECHO 06/2013: EF 60%, moderate to severe concentric LVH, no regional wall motion abnormalities noted, mildly dilated LA, mild MR, dilated aortic root
Echo 07/15/24: EF 15 to 20%, global hypokinesis with regional variations, mild concentric LVH, stage I diastolic dysfunction, mild to moderate MR, no pericardial effusion, ascending aorta diameter 4.3 cm
Catheterization 07/17/24: Successful stenting of mid RCA with placement of 2.75 x 26 mm [place] stent, LVEDP 21
Plan:
Medically complex 78-year-old male with right lower extremity pain/claudication and significant peripheral arterial disease and CT angio with runoff which demonstrated increased size of right common iliac artery aneurysm with complete occlusion of
right SFA, with occluded popliteal artery aneurysm but one-vessel runoff to the foot who is felt to require extensive surgical revascularization to improve claudication/rest pain including right femoral endarterectomy with right arterial bypass, and
right iliac artery stenting for increasing aneurysm.
He underwent successful RCA stent 04/18/2024
He is doing very well at present from a cardiology standpoint
Continue Plavix and aspirin
Continue IV heparin with plans for arteriogram on 07/20/2024 by vascular surgery
Stable cardiology status for plans for intervention by vascular surgery
Continue treatment for cardiomyopathy with Coreg, lisinopril, Farxiga
LVEDP was 21 on catheterization on 07/17 and does not appear volume overloaded at present, proBNP was 338 on 07/16/2024
Might consider eventual change to Entresto or add Aldactone
Social concerns: Patient's Kristine has pancreatic cancer and he is worried about her being home alone during his hospitalization. Consider social service consult
Progress Note - Bank Consultant
Subjective
Date of Service: July 18, 2024
No chest pain or shortness of breath
Objective
Labs:
07/18/24 06:
07/18/24:
Labs
Hgb 13.5 g/dL (13.0-18.0) 07/18/24 06:
Hct 40.3 % (39.0-52.0) 07/18/24 06:
Plt Count 122 10^3/uL (130-400) L 07/18/24 06:29
PT 13.2 Sec (11.4-14.6) 07/13/24 13:25
INR 0.97 07/13/24 13:25
APTT 82.9 Sec (23.4-35.0) H 07/18/24 06:29
Sodium 141 mmol/L (135-145) 07/18/24 06:
Potassium 4.1 mmol/L (3.5-5.1) 07/18/24 06:29
BUN 24 mg/dl (9-20) H 07/18/24:29
Creatinine 1.2 mg/dL (0.7-1.3) 07/18/24:
Glucose 92 mg/dl (70-99) 07/18/24:29
Vital Signs and I&O:
Vital Signs
Temp Pulse Resp BP Pulse Ox
98.3 F 67 18 121/80 96
07/18/24 08:31 07/18/24 08:42 07/18/24 08:42 07/18/24 07:45 07/18/24 08:42
Vital Signs
Temp Pulse Resp BP Pulse Ox
98.3 F 67 18 121/80 96
07/18/24 08:31 07/18/24 08:42 07/18/24 08:42 07/18/24 07:45 07/18/24 08:42
Intake & Output
07/16/24 07/17/24 07/18/24 07/19/24
06:59 06:59 06:59 06:59
Intake Total 852 / 852 420 / 420 250 / 250
Output Total 400 / 400 1200 / 1200 1100 / 1100 250 / 250
Balance 452 / 452 -780 / -780 -850 / -850 -250 / -250
Physical Exam
Physical Exam
General: Well developed, well nourished in NAD.
Neck: Supple, no JVD, HJR, carotids +2 B/L, no bruits bilaterally.
Heart: Non displaced PMI, RRR, no murmurs, No S3, S4, no rubs.
Lungs: Scattered rhonchi
Right radial wrist site okay
Extremities: No clubbing, cyanosis or edema bilaterally.
Neuro: Grossly nonfocal, awake, alert and oriented x3.
--- NOTE | 2024-07-18 10:02 | PTCARENOTE ---
Assumed care of pt from die cast technician RN. AAOx3. NSR on tele, HRs 60s-70s. R radial dressing CDI. RUE neurovascular checks WDL. RLE pulses present with Doppler. Pt still endorsing numbness/decreased sensation to RLE. Heparin gtt infusing at 1300
units/hr. Next PTT due at 1230. Plan for arteriogram on Saturday wit vascular surgery. Pt resting in bed, call puente in reach.
[2024-07-18 11:29] VITALS: BP 104/64
[2024-07-18 13:10] LABS: APTT 79.3 Sec (23.4-35.0)
--- NOTE | 2024-07-18 13:30 | W.PN.HOSP.TC ---
Today's Communication/Plan
-
ASA and plavix
Cont heparin ggt
Assessment / Plan
Assessment / Plan
78-year-old male with past medical history of peripheral artery disease status post right carotid endarterectomy, AAA status post endovascular repair presents to [facility] with numbness of the right lower extremity. On FC T, complete
occlusion of proximal right superficial femoral artery noted along with occluded proximal popliteal artery aneurysm. 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
CT IMPRESSION:
1. There is an aortobiiliac endograft with stable size of the excluded aneurysm sac measuring 5.0 cm. There is a stable 5.5 cm suprarenal abdominal aortic aneurysm.
2. There is slightly increased size of the right common iliac artery aneurysm measuring 3.6 cm, previously 2.9 cm. There is complete occlusion of the proximal right superficial femoral artery with reconstitution at the level of the tibioperoneal
trunk. There is three-vessel runoff proximally without discrete opacification at the level of the ankle on initial images, however delayed images demonstrate single vessel runoff via the anterior tibial artery.. 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
3. There is similar size of the left common iliac artery dilation measuring 2.5 cm. 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 There
is one-vessel runoff at the level of the ankle via the peroneal vein.
4. Atrophic right kidney, unchanged.
5. Bilateral inguinal hernias with the left containing non-obstructed colon.
#Right lower extremity ischemia
-Continue heparin drip
-Vascular surgery appreciated
-Bypass postponed to likely Saturday due to need for cardiac cath found during work up for pre-op cardiac clearance
-Cath successful
-Clear for vascular surgery on 07/20 per cardiology
-cont heparin ggt
#CAD
-Lexiscan stress test revealed severe perfusion defect -> cardiac cath
-SHUN placement in right coronary artery on 07/17/2024 as 70% stenosis -> successful
-ASA 81 and clopidogrel for next 6-12 months
-Follow up with cardiology outpatient
#HFrEF
-Echo 15-20%, reduced from prior in 2013 60%EF
-Does endorse occasional leg swelling, but no SOB or orthopnea
-Cardiology following
-d/c amlodipine and add carvedilol for gdmt per cards
# Extensive peripheral artery disease
-History of right carotid endarterectomy
-History of AAA status post endovascular repair
-Continue aspirin
#thrombocytopenia
-Monitor
#Hypertension
� Continue amlodipine and trandolapril
#Hyperlipidemia
-Continue statin
#COPD
-Not in acute exacerbation
-Continue Spiriva
#BPH/overactive bladder
-Continue finasteride
-Continue oxybutynin
#GERD
-continue Protonix
#Tobacco use disorder
-Smoking 1 pack of cigarettes per day since the age of 11
-Continue nicotine patch
-Encourage smoking sensation
DVT Heparin ggt
Full Code
Anticipated Discharge: > 48 hours
Subjective/Interval History
-
Date of Service: July 18, 2024
Agreeable to stay until Saturday. In a good mood after talking to . Pleasantly humorous.
Objective Data
-
Labs:
Laboratory Results
07/18/24 07/18/24
06:29 12:46
WBC 8.6
Hgb 13.5
Hct 40.3
Plt Count 122 L
APTT 82.9 H 79.3 H
Sodium 141
Potassium 4.1
Chloride 110 H
Carbon Dioxide 24
BUN 24 H
Creatinine 1.2
Glucose 92
Calcium 9.7
Vital Signs:
Vital Signs
Temp Pulse Resp BP Pulse Ox
98.6 F 64 18 104/64 98
07/18/24 11:32 07/18/24 12:00 07/18/24 11:32 07/18/24 11:29 07/18/24 11:32
I&O
07/17/24 07/18/24 07/19/24
06:59 06:59 06:59
Intake Total 420 / 420 250 / 250
Output Total 1200 / 1200 1100 / 1100 250 / 250
Balance -780 / -780 -850 / -850 -250 / -250
Review of Systems
-
History Source: Patient
EENT: Reports No Symptoms Reported
Respiratory: Reports No Symptoms
Cardiac: Reports No Symptoms
Abdomen/GI: Reports No Symptoms
Musculoskeletal: Reports Other (Distal pulses in RLE difficult to palpate, but capillary reflex good, warm and well perfused limbs bilaterally. )
Neuro: Reports No Symptoms
Physical Exam
-
General: No Apparent Distress and Comfortable
HEENT: Normocephalic
Respiratory: Clear to Auscultation
Cardiac: Regular Rhythm and S1/S2
GI: Soft, Nontender, Nondistended and Normal Bowel Sounds
Musculoskeletal: No Edema and Other (No signs of infx around right wrist )
Skin: Warm and Dry
Neuro: AO x 3
Psych: Calm
[2024-07-18 15:56] VITALS: BP 107/62
[2024-07-18] MEDS: LIPITOR 40 MG PO (17:07)
[2024-07-18 18:19] VITALS: BP 113/60
--- NOTE | 2024-07-18 20:05 | PTCARENOTE ---
Assumed care of pt from prev nsg shift; Pt AAOx3 w/no CP or SOB. Pt w/VSS w/HR in the 70's & BP 113/60 this evening. Pt' is SR w/L BBB on telemetry monitoring. Pt w/IV Heparin drip infusing as ordered through a patent IV line. Pt's R radial dressing
C/D/I w/no signs or symptoms of bleeding or hematoma. Pt able to ambulate in the unassisted. Pt w/call puente within reach & plan of care ongoing.
[2024-07-18 22:39] VITALS: BP 99/63
[2024-07-19 05:20] VITALS: BMI 27.4
[2024-07-19 05:21] VITALS: BP 102/62
[2024-07-19 06:00] VITALS: BMI 27.4
[2024-07-19 06:00] LABS: APTT 103.7 Sec (23.4-35.0)
[2024-07-19 06:12] LABS: ALT (SGPT) 54 U/L (0-50); AST (SGOT) 44 U/L (17-59); Albumin 3.8 g/dl (3.5-5.0); Alkaline Phosphatase 156 U/L (38-126); Blood Urea Nitrogen 22 mg/dl (9-20); Carbon Dioxide 23 mmol/L (22-30); Chloride 112 mmol/L (98-107); Estimated Creatinine Clearance 48 ml/min; Glucose 90 mg/dl (70-99); Potassium 4.2 mmol/L (3.5-5.1); Sodium 141 mmol/L (135-145); Total Bilirubin 0.6 mg/dl (0.2-1.3); eGFR 56.93
[2024-07-19 06:24] LABS: Hematocrit 38.8 % (39.0-52.0); Mean Corp Hgb Conc. 33.5 g/dL (33.0-37.0); Mean Corpuscular Volume 89.6 fL (80.0-94.0); Mean Platelet Volume 10.3 fL (7.4-10.4); Platelet Count 130 10^3/uL (130-400); Red Blood Cell Count 4.33 10^6/uL (4.70-6.10); Red Cell Dist. Width 14.6 % (11.5-14.5); White Blood Cell Count 7.3 10^3/uL (4.8-10.8)
[2024-07-19] MEDS: DITROPAN 2.5 MG PO ×2 (07:42→19:47)
[2024-07-19] MEDS: PLAVIX 75 MG PO (07:42)
[2024-07-19] MEDS: PROTONIX 40 MG PO (07:43)
[2024-07-19] MEDS: FARXIGA 10 MG PO (07:43)
[2024-07-19] MEDS: PROSCAR 5 MG PO (07:43)
[2024-07-19] MEDS: ASPIR LOW (ENTERIC COATED) 81 MG PO (07:43)
[2024-07-19 07:45] VITALS: BP 119/70
[2024-07-19] MEDS: ZESTRIL 20 MG PO (07:46)
[2024-07-19] MEDS: COREG 3.125 MG PO ×2 (07:46→19:46)
[2024-07-19] MEDS: NICODERM TRANSDERMAL 14 MG TRANSDERM (07:47)
[2024-07-19] MEDS: SPIRIVA RESPIMAT 2.5 MCG 2 PUFF INH (08:08)
--- NOTE | 2024-07-19 08:57 | W.PN.HOSP.TC ---
Today's Communication/Plan
-
Bypass tmrw
cont heparin ggt
Assessment / Plan
Assessment / Plan
78-year-old male with past medical history of peripheral artery disease status post right carotid endarterectomy, AAA status post endovascular repair presents to [facility] with numbness of the right lower extremity. On FC T, complete
occlusion of proximal right superficial femoral artery noted along with occluded proximal popliteal artery aneurysm. 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
CT IMPRESSION:
1. There is an aortobiiliac endograft with stable size of the excluded aneurysm sac measuring 5.0 cm. There is a stable 5.5 cm suprarenal abdominal aortic aneurysm.
2. There is slightly increased size of the right common iliac artery aneurysm measuring 3.6 cm, previously 2.9 cm. There is complete occlusion of the proximal right superficial femoral artery with reconstitution at the level of the tibioperoneal
trunk. There is three-vessel runoff proximally without discrete opacification at the level of the ankle on initial images, however delayed images demonstrate single vessel runoff via the anterior tibial artery.. 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
3. There is similar size of the left common iliac artery dilation measuring 2.5 cm. 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 There
is one-vessel runoff at the level of the ankle via the peroneal vein.
4. Atrophic right kidney, unchanged.
5. Bilateral inguinal hernias with the left containing non-obstructed colon.
#Right lower extremity ischemia
-Continue heparin drip
-Vascular surgery appreciated
-Bypass postponed to likely Saturday due to need for cardiac cath found during work up for pre-op cardiac clearance
-Cath successful
-Clear for vascular surgery on 07/20 per cardiology
-cont heparin ggt
#CAD
-Lexiscan stress test revealed severe perfusion defect -> cardiac cath
-SHUN placement in right coronary artery on 07/17/2024 as 70% stenosis -> successful
-ASA 81 and clopidogrel for next 6-12 months
-Follow up with cardiology outpatient
#HFrEF
-Echo 15-20%, reduced from prior in 2013 60%EF
-Does endorse occasional leg swelling, but no SOB or orthopnea
-Cardiology following
-d/c amlodipine and now on carvedilol for gdmt per cards
# Extensive peripheral artery disease
-History of right carotid endarterectomy
-History of AAA status post endovascular repair
-Continue aspirin
#thrombocytopenia
-resolved
#Hypertension
� Continue amlodipine and trandolapril
#Hyperlipidemia
-Continue statin
#COPD
-Not in acute exacerbation
-Continue Spiriva
#BPH/overactive bladder
-Continue finasteride
-Continue oxybutynin
#GERD
-continue Protonix
#Tobacco use disorder
-Smoking 1 pack of cigarettes per day since the age of 11
-Continue nicotine patch
-Encourage smoking sensation
DVT Heparin ggt
Full Code
Anticipated Discharge: > 48 hours
Subjective/Interval History
-
Date of Service: July 19, 2024
Objective Data
-
Labs:
Laboratory Results
07/19/24
05:38
WBC 7.3
Hgb 13.0
Hct 38.8 L
Plt Count 130
APTT 103.7 H
Sodium 141
Potassium 4.2
Chloride 112 H
Carbon Dioxide 23
BUN 22 H
Creatinine 1.3
Glucose 90
Calcium 10.0
Total Bilirubin 0.6
AST 44
ALT 54 H
Alkaline Phosphatase 156 H
Vital Signs:
Vital Signs
Temp Pulse Resp BP Pulse Ox
97.7 F 68 14 119/70 95
07/19/24 07:47 07/19/24 08:14 07/19/24 08:14 07/19/24 07:46 07/19/24 07:47
I&O
07/18/24 07/19/24 07/20/24
06:59 06:59 06:59
Intake Total 250 / 250
Output Total 1100 / 1100 550 / 550
Balance -850 / -850 -550 / -550
Review of Systems
-
History Source: Patient
Constitutional: Reports No Symptoms
Respiratory: Reports No Symptoms
Cardiac: Reports No Symptoms
Abdomen/GI: Reports No Symptoms
Genitourinary: Reports No Symptoms
Neuro: Reports No Symptoms
Physical Exam
-
General: Well Developed, No Apparent Distress and Comfortable
Respiratory: Clear to Auscultation
Cardiac: Regular Rhythm and S1/S2
GI: Soft, Nontender, Nondistended and Normal Bowel Sounds
Musculoskeletal: Other (RLE peripheral pulses hard to fine, but capillary reflex intact, warm and well perfused )
Skin: Warm and Dry
Neuro: AO x 3
Psych: Calm
--- NOTE | 2024-07-19 09:30 | PTCARENOTE ---
Assumed care of pt from senior service technician RN. AAOx3. NSR on tele. Pt still endorsing RLE numbness. RLE pulses present with Doppler. Heparin gtt infusing per orders. R radial site dressing removed and left BIPIN. Site intact. Neurovascular checks WDL. Pt
resting in bed, call puente in reach. Assessment documented. NPO at midnight for angiography tomorrow.
--- NOTE | 2024-07-19 11:01 | W.PN.CARDCBS ---
Today's Communication / Plan
-
Stable cardiology status for peripheral vascular surgery intervention in a.
Impression / Plan
-
Primary Senior Application Security Consultant: last seen by Dr. Wheeler in 2014
Assessment:
Presentation with altered sensation/pain to RLE
PAD/RLE ischemia
Severe cardiomyopathy with ejection fraction of 15 to 20% - 07/15/2024
CAD status post RCA stent on 07/17/2024
AAA repair with endovascular graft
iliac artery aneurysms
carotid disease s/p R CEA
LBBB
HTN
HLD
BPH
GERD
COPD/ongoing tobacco use
ECHO 06/2013: EF 60%, moderate to severe concentric LVH, no regional wall motion abnormalities noted, mildly dilated LA, mild MR, dilated aortic root
Echo 07/15/24: EF 15 to 20%, global hypokinesis with regional variations, mild concentric LVH, stage I diastolic dysfunction, mild to moderate MR, no pericardial effusion, ascending aorta diameter 4.3 cm
Catheterization 07/17/24: Successful stenting of mid RCA with placement of 2.75 x 26 mm Alejandro stent, LVEDP 21
Plan:
Stable cardiology status for peripheral vascular intervention in [facility].
Continue IV heparin per vascular surgery
Continue aspirin and Plavix status post RCA stent
Continue treatment for cardiomyopathy with Coreg, lisinopril, Farxiga
LVEDP was 21 on catheterization on 07/17 and does not appear volume overloaded at present, proBNP was 338 on 07/16/2024
Might consider eventual change to Entresto or add Aldactone
Social concerns: Patient's Kristine has pancreatic cancer and he is worried about her being home alone during his hospitalization. Consider social service consult
PREADMIT DATA
Medically complex 78-year-old male with right lower extremity pain/claudication and significant peripheral arterial disease and CT angio with runoff which demonstrated increased size of right common iliac artery aneurysm with complete occlusion of
right SFA, with occluded popliteal artery aneurysm but one-vessel runoff to the foot who is felt to require extensive surgical revascularization to improve claudication/rest pain including right femoral endarterectomy with right arterial bypass, and
right iliac artery stenting for increasing aneurysm.
Progress Note - Senior Application Security Consultant
Subjective
Date of Service: July 19, 2024
No complaints
Objective
Labs:
07/19/24 05:38
07/19/24 05:38
Labs
Hgb 13.0 g/dL (13.0-18.0) 07/19/24 05:38
Hct 38.8 % (39.0-52.0) L 07/19/24 05:38
Plt Count 130 10^3/uL (130-400) 07/19/24 05:38
PT 13.2 Sec (11.4-14.6) 07/13/24 13:25
INR 0.97 07/13/24 13:25
APTT 103.7 Sec (23.4-35.0) H 07/19/24 05:38
Sodium 141 mmol/L (135-145) 07/19/24 05:38
Potassium 4.2 mmol/L (3.5-5.1) 07/19/24 05:38
BUN 22 mg/dl (9-20) H 07/19/24 05:38
Creatinine 1.3 mg/dL (0.7-1.3) 07/19/24 05:38
Glucose 90 mg/dl (70-99) 07/19/24 05:38
Vital Signs and I&O:
Vital Signs
Temp Pulse Resp BP Pulse Ox
97.7 F 68 14 119/70 95
07/19/24 07:47 07/19/24 08:14 07/19/24 08:14 07/19/24 07:46 07/19/24 07:47
Vital Signs
Temp Pulse Resp BP Pulse Ox
97.7 F 68 14 119/70 95
07/19/24 07:47 07/19/24 08:14 07/19/24 08:14 07/19/24 07:46 07/19/24 07:47
Intake & Output
07/17/24 07/18/24 07/19/24 07/20/24
06:59 06:59 06:59 06:59
Intake Total 420 / 420 250 / 250 360 / 360
Output Total 1200 / 1200 1100 / 1100 550 / 550
Balance -780 / -780 -850 / -850 -550 / -550 360 / 360
Physical Exam
Physical Exam
General: Well developed, well nourished in NAD.
Neck: Supple, no JVD, HJR, carotids +2 B/L, no bruits bilaterally.
Heart: Non displaced PMI, RRR, no murmurs, No S3, S4, no rubs.
Lungs: Scattered rhonchi
Extremities: No clubbing, cyanosis or edema bilaterally.
Neuro: Grossly nonfocal, awake, alert and oriented x3.
[2024-07-19 11:37] VITALS: BP 115/60
[2024-07-19 15:21] VITALS: BP 111/65
[2024-07-19] MEDS: HEPARIN 25000 UNITS/250 ML IV (16:21)
[2024-07-19] MEDS: LIPITOR 40 MG PO (17:18)
[2024-07-19 19:09] VITALS: BP 142/69
[2024-07-19 22:23] VITALS: BP 105/71
--- NOTE | 2024-07-19 23:25 | PTCARENOTE ---
Received patient at change of shift. SR with a BBB on the monitor, HR in the 60s. Heparin running as per protocol. CHG wipes and new sheets before bedtime. Pt aware of NPO at midnight. No complaints from pt at this time, call upente within reach.
[2024-07-20] VITALS (16 sets, daily range): BP systolic 104–142; BP diastolic 61–86; BMI 27.9
[2024-07-20 05:11] LABS: APTT 100.6 Sec (23.4-35.0); Hemoglobin 13.1 g/dL (13.0-18.0); Mean Corp Hgb Conc. 33.6 g/dL (33.0-37.0); Mean Corpuscular Volume 89.2 fL (80.0-94.0); Mean Platelet Volume 10.5 fL (7.4-10.4); Platelet Count 129 10^3/uL (130-400); Red Blood Cell Count 4.37 10^6/uL (4.70-6.10); Red Cell Dist. Width 14.5 % (11.5-14.5); White Blood Cell Count 8.3 10^3/uL (4.8-10.8)
[2024-07-20 05:22] LABS: ALT (SGPT) 56 U/L (0-50); AST (SGOT) 37 U/L (17-59); Albumin 3.5 g/dl (3.5-5.0); Alkaline Phosphatase 172 U/L (38-126); Blood Urea Nitrogen 24 mg/dl (9-20); Calcium 9.9 mg/dl (8.4-10.2); Carbon Dioxide 25 mmol/L (22-30); Chloride 110 mmol/L (98-107); Estimated Creatinine Clearance 48 ml/min; Glucose 93 mg/dl (70-99); Potassium 4.3 mmol/L (3.5-5.1); Sodium 141 mmol/L (135-145); Total Bilirubin 0.5 mg/dl (0.2-1.3); Total Protein 5.8 g/dl (6.3-8.2); eGFR 56.93
--- NOTE | 2024-07-20 07:04 | W.PN.HOSP.TC ---
Addendum entered and electronically signed by Uri Tate MD 07/20/24 21:14:
Attending Addendum-
I saw and evaluated the patient. I reviewed the resident�s note and agree with findings and plan as documented in the resident�s note. Sub: 'I just smoked in the bathroom, I wish they had a pill for stupid' Feels numbness and pain in B/L LE. Denies
CP palps SOB SAMUEL. Full 12 point ROS reviewed and negative except as documented Exam: Vitals reviewed in chart GEN-NAD heart RRR lungs clear and soft LE faint pules b/l LE
Plan:
#Limb threatening Right lower limb ischemia
-07/20-Diagnostic right lower extremity arteriogram
-cont heparin gtt
-for bypass possibly during this admission
#Peripheral Artery Disease s/p Right Carotid Endarterectomy
-AAA s/p Endovascular Repair
-Continue aspirin and Plavix
#Ischemic CM/CAD/HFrEF-not in AE
-echo 07/15-Left ventricle is mildly dilated. Severely reduced left ventricular systolic function. Left ventricular ejection fraction is 15-20% by visual estimation.
Global hypokinesis with regional variations. Mild concentric left ventricular hypertrophy. Stage I diastolic dysfunction suggestive of abnormal relaxation.
-Cardiology evaluated and patient underwent nuclear stress test which was normal
-s/p [facility] with RCA SHUN placed on 07/17
-Recommended to be on DAPT 6 to 12 months continuously. On heparin drip
-cont faxiga lisinopril and coreg
-eventual ICD
# Essential Hypertension
-Continue amlodipine and trandolapril (or formulary substitute) with hold parameters
#Hyperlipidemia
-Continue atorvastatin
#COPD, no acute exacerbation
-Continue Spiriva
#BPH
-Continue finasteride
#GERD
-Continue Protonix
#Tobacco Use Disorder / Nicotine Dependence
-Encourage smoking cessation
-Continue nicotine patch
DVT prophylaxis : heparin subq
Code Status: Full Code->DNR 07/20
Patient consented to discuss, was alone, time spent explanation of advance directives, changes in health status, patient�s health care wishes if the patient becomes unable to make health decisions, goals of care, code status, and prognosis 'no i
don't want all that, if i i and ill with a cigarette in my mouth'- 16 minutes
Time spent coordinating care, review of plan of care with resident, personally reviewed previous records in EMR, med rec, labs, radiology, d/w nursing, family total time documented is exclusive of any additional time listed that was spent in advance
care planning discussion -�52 minutes
Original Note:
Today's Communication/Plan
-
Will go for vascular procedure today.
Assessment / Plan
Assessment / Plan
78-year-old male with past medical history of PAD s/p R carotid endarterectomy, AAA s/p endovascular
#Right LE Limb Ischemia
- CT demonstrating COMPLETE occlusion of prox. R SFA, occluded R prox. PA aneurysm, HIGH GRADE STENOSIS of distal SFA w/ partially thrombosed aneurysm
- US mapping complete
- Cleared by Cardiology for vascular surgery today
- cont heparin ggt until TOS
#CAD
- Lexiscan stress test revealed severe perfusion defect w/ minimal ischemia (70% stenosis)
- S/p cardiac cath with mid right coronary artery stenting; rec uninterrupted aspirin/Plavix 6-12 months
- c/w DAPT
- Will follow up with cardiology as outpatient
#HFrEF
- Echo 07/15/2024 showing EF15-20%, reduced from 60% in 2014
- occasional leg swelling, but no SOB or orthopnea, proBNP on 07/16/24 338. No signs of volume overload at this time
- c/w GDMT Lisinopril, carvedilol, Farxiga. May add Entresto vs. Aldactone as OP w/ Cardiology.
#Extensive peripheral artery disease - H/o right carotid endarterectomy, H/o AAA status post endovascular repair. Continue aspirin as above
#Thrombocytopenia - No sign of bleeding/clotting/bruising. Will monitor plts for HIT on heparin ggt.
#Hypertension � Continue amlodipine and lisinopril.
#Hyperlipidemia - Continue statin
#COPD -Not in acute exacerbation. continue spiriva
#BPH/overactive bladder -Continue finasteride, oxybutynin
#GERD - continue Protonix
#Tobacco use disorder - Smoking 1 pack of cigarettes per day since the age of 11. Will c/w Nicotine patch. patient not amenable to smoking cessation or reduction in smoking
Diet - NPO for procedure today
DVT PPx- Heparin ggt
Code Status - Full Code
Anticipated Discharge: 24 - 48 hours
Subjective/Interval History
-
Feeling well this morning. Is able to ambulate to the bathroom without claudication. No overnight events. No Acute complaints other than wanting to smoke a cigarette. He will go for stent this afternoon most likely.
Objective Data
-
Labs:
Laboratory Results
07/20/24
04:40
WBC 8.3
Hgb 13.1
Hct 39.0
Plt Count 129 L
APTT 100.6 H
Sodium 141
Potassium 4.3
Chloride 110 H
Carbon Dioxide 25
BUN 24 H
Creatinine 1.3
Glucose 93
Calcium 9.9
Total Bilirubin 0.5
AST 37
ALT 56 H
Alkaline Phosphatase 172 H
Vital Signs:
Vital Signs
Temp Pulse Resp BP Pulse Ox
98.5 F 66 18 142/69 98
07/20/24 04:24 07/19/24 20:30 07/20/24 04:24 07/19/24 19:46 07/20/24 04:24
I&O
07/19/24 07/20/24 07/21/24
06:59 06:59 06:59
Intake Total 360 / 360
Output Total 550 / 550
Balance -550 / -550 360 / 360
Review of Systems
-
History Source: Patient
All other systems: Reviewed and negative
Constitutional: Reports No Symptoms
Respiratory: Reports No Symptoms
Cardiac: Reports No Symptoms
Abdomen/GI: Reports No Symptoms
Breast: Reports N/A
Genitourinary: Reports No Symptoms
Musculoskeletal: Reports No Symptoms
Neuro: Reports Other (L ankle paresthesia, R leg paresthesia. )
Hematologic / Lymphatic: Denies Bleeding or Bruising
Physical Exam
-
General: Well Developed, Well Nourished, No Apparent Distress and Comfortable
HEENT: Normocephalic, Atraumatic and Moist Mucous Membranes
Respiratory: Clear to Auscultation; Negative Wheezes, Rales or Rhonchi
Cardiac: Regular Rhythm, S1/S2 and Other (Soft heart sounds); Negative Murmur
Breast: N/A
GI: Soft, Nontender, Nondistended and Normal Bowel Sounds
Genito-urinary: Deferred by me
Musculoskeletal: No Clubbing, No Cyanosis and No Edema
Skin: Warm, Dry and IV Access / Catheter Site
Neuro: Awake, Alert, Oriented and Other (Sensation grossly intact and symmetrical BL LE. Motor strength 5/5 BL LE)
Psych: Calm
[2024-07-20] MEDS: SPIRIVA RESPIMAT 2.5 MCG 2 PUFF INH (08:18)
[2024-07-20] MEDS: PROTONIX 40 MG PO (08:59)
[2024-07-20] MEDS: FARXIGA 10 MG PO (08:59)
[2024-07-20] MEDS: DITROPAN 2.5 MG PO ×2 (08:59→21:25)
[2024-07-20] MEDS: PLAVIX 75 MG PO (08:59)
[2024-07-20] MEDS: ASPIR LOW (ENTERIC COATED) 81 MG PO (08:59)
[2024-07-20] MEDS: ZESTRIL 20 MG PO (09:00)
[2024-07-20] MEDS: PROSCAR 5 MG PO (09:00)
[2024-07-20] MEDS: COREG 3.125 MG PO ×2 (09:00→21:26)
[2024-07-20] MEDS: NICODERM TRANSDERMAL 14 MG TRANSDERM (09:01)
--- NOTE | 2024-07-20 12:16 | W.PN.CARDCBS ---
Addendum entered and electronically signed by Adolfo Beltran MD 07/20/24 12:41:
I saw and examined the patient.
The SPECIAL LIBRARIAN or PA's note was reviewed and I agree with the note.
Comment: General: Well developed, well nourished in NAD.
Neck: Supple, no JVD, HJR, carotids +2 B/L, no bruits bilaterally.
Heart: Non displaced PMI, RRR, no murmurs, No S3, S4, no rubs.
Lungs: Scattered rhonchi
Extremities: No clubbing, cyanosis or edema bilaterally.
Neuro: Grossly nonfocal, awake, alert and oriented x3.
stable cardiology status for peripheral intervention per vascular surgery, cont asa and plavix s/p rca stent on 07/17/24. cont iv Heparin per vascular surgery
Original Note:
Today's Communication / Plan
-
Cont aspirin and Plavix following SHUN
Heparin gtt per vascular surgery
Impression / Plan
-
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 Wheeler in 2014
Assessment:
Presentation with altered sensation/pain to RLE
PAD/RLE ischemia
Severe cardiomyopathy with ejection fraction of 15 to 20% - 07/15/2024
CAD status post RCA stent on 07/17/2024
AAA repair with endovascular graft
iliac artery aneurysms
carotid disease s/p R CEA
LBBB
HTN
HLD
BPH
GERD
COPD/ongoing tobacco use
ECHO 06/2013: EF 60%, moderate to severe concentric LVH, no regional wall motion abnormalities noted, mildly dilated LA, mild MR, dilated aortic root
Echo 07/15/24: EF 15 to 20%, global hypokinesis with regional variations, mild concentric LVH, stage I diastolic dysfunction, mild to moderate MR, no pericardial effusion, ascending aorta diameter 4.3 cm
Catheterization 07/17/24: Successful stenting of mid RCA with placement of 2.[address] stent, LVEDP 21
Plan:
-Patient scheduled for peripheral angiogram 07/20/24 and eventual RLE peripheral bypass.
-Cardiology initially saw patient for cardiac clearance 07/15/24 and following abnormal stress test the patient had cardiac cath and RCA PCI 07/17/24
-Cont aspirin and Plavix
-LDL 55 and outpatient dose of atorvastatin 40 mg daily has been continued
-Smoking cessation encouraged, but patient does not believe he can quit at this point.
-EF 15-20% by echo. Patient will need a repeat echo in 40 days given RCA PCI
-New to Coreg 3.125 mg BID
-New to lisinopril 20 mg daily. If we want to switch to Entresto then he will need a prior auth
-New to Farxiga 10 mg daily, appreciate help of CM on checking cost, it will be $15/month
-Patient also ordered heparin gtt per vascular surgery service
-CM is following. Patient's Kristine has pancreatic cancer and he is worried about her being home alone during his hospitalization.
HPI: Medically complex 78-year-old male with right lower extremity pain/claudication and significant peripheral arterial disease and CT angio with runoff which demonstrated increased size of right common iliac artery aneurysm with complete occlusion
of right SFA, with occluded popliteal artery aneurysm but one-vessel runoff to the foot who is felt to require extensive surgical revascularization to improve claudication/rest pain including right femoral endarterectomy with right arterial bypass,
and right iliac artery stenting for increasing aneurysm.
Progress Note - Pressing Machine Operator
Subjective
Date of Service: July 20, 2024
Denies chest pain
Objective
Labs:
07/20/24 04:40
07/20/24 04:40
Labs
Hgb 13.1 g/dL (13.0-18.0) 07/20/24 04:40
Hct 39.0 % (39.0-52.0) 07/20/24 04:40
Plt Count 129 10^3/uL (130-400) L 07/20/24 04:40
PT 13.2 Sec (11.4-14.6) 07/13/24 13:25
INR 0.97 07/13/24 13:25
APTT 100.6 Sec (23.4-35.0) H 07/20/24 04:40
Sodium 141 mmol/L (135-145) 07/20/24 04:40
Potassium 4.3 mmol/L (3.5-5.1) 07/20/24 04:40
BUN 24 mg/dl (9-20) H 07/20/24 04:40
Creatinine 1.3 mg/dL (0.7-1.3) 07/20/24 04:40
Glucose 93 mg/dl (70-99) 07/20/24 04:40
Vital Signs and I&O:
Vital Signs
Temp Pulse Resp BP Pulse Ox
98 F 68 18 109/76 97
07/20/24 11:09 07/20/24 09:30 07/20/24 11:09 07/20/24 09:00 07/20/24 11:09
Vital Signs
Temp Pulse Resp BP Pulse Ox
98 F 68 18 109/76 97
07/20/24 11:09 07/20/24 09:30 07/20/24 11:09 07/20/24 09:00 07/20/24 11:09
Intake & Output
07/18/24 07/19/24 07/20/24 07/21/24
06:59 06:59 06:59 06:59
Intake Total 250 / 250 360 / 360
Output Total 1100 / 1100 550 / 550
Balance -850 / -850 -550 / -550 360 / 360
Physical Exam
Physical Exam
GEN: AAO x3
HEENT: EOMI
LUNGS: RA. No audible wheeze
CV: SR on tele
EXT: Trace edema of B/L LE with varicose veins
NEURO: Gross non-focal
SKIN: No rash
[2024-07-20] MEDS: HEPARIN 25000 UNITS/250 ML IV (13:53)
--- NOTE | 2024-07-20 16:48 | CM ---
Chart reviewed. Patient is independent of ADLS, lives with his in a [address], 3 [facility], 0 DME. Patient waiting for an arteriogram. Plan is for the patient to return home. CM to follow
--- NOTE | 2024-07-20 17:55 | W.SUR.PREOP ---
Pre-Operative Surgical Note
-
I have examined this patient prior to the performance of the scheduled procedure.
The patient's condition is unchanged from the time of the current History and
Physical and the patient is able to undergo the scheduled procedure.
--- NOTE | 2024-07-20 19:26 | OR.RPT ---
Operative Report
Operative Report
Date of Operation: 07/20/2024
Pre Op Diagnosis: Limb threatening ischemia right lower extremity manifested by ischemic rest pain
Post Op Diagnosis: Limb threatening ischemia right lower extremity manifested by ischemic rest pain
Procedure:
1.) Diagnostic right lower extremity arteriogram
2.) Introduce wire catheter to aorta from right femoral access
3.) Ultrasound-guided percutaneous access to the right common femoral artery
Surgeon: Bryan Daley III, MD
Hair Or Beauty Salon Assistant: Thomas Negrete MD PGY1
Anesthesia: Sedation with local
Complications: None
Estimated Blood Loss: 5 cc
History and Indications for Procedure: 78-year-old male with limb threatening ischemia to the right lower extremity manifested by ischemic rest pain.
Procedure in Detail: Mainor Arias was correctly identified and placed supine on the operating table. After adequate induction of anesthesia the bilateral groins were prepped and draped in the usual sterile fashion. A timeout was performed with the
nursing and anesthesia staff confirming the patient's identity as well as the nature and laterality of the procedure.
The right common femoral artery was identified under ultrasound guidance. The artery was patent and calcification was present. The superior and inferior aspects of the femoral head were identified with radiographic guidance and marked at the skin
level. The proposed puncture site was infiltrated with local anesthesia. Under ultrasound guidance we accessed the right common femoral artery with a micropuncture needle and upsized to a 5 Fr sheath over a Bentson wire. A diagnostic retrograde
right iliac arteriogram was performed:
The right iliac limb was patent. Right common iliac artery aneurysm was identified beyond the end of the iliac stent. The internal iliac artery was patent. The external iliac artery was patent.
A diagnostic right lower extremity arteriogram was then performed which demonstrated the following:
RIGHT LOWER EXTREMITY:
Common femoral artery: Patent with no significant stenosis identified. Calcified. Surgical clips identified in the right groin
Profunda femoral artery: Patent. No significant stenosis identified. Robust branching network identified in the thigh.
Superficial femoral artery: Heavily calcified and occluded throughout
Popliteal artery: Calcified. Occluded above the knee. Reconstitutes behind the knee.
Anterior tibial artery: High takeoff behind the knee. Patent. Dominant tibial artery runoff. Continues across the ankle to form the dorsalis pedis artery in the foot.
Tibioperoneal trunk: Patent
Peroneal artery: Patent
Posterior tibial artery: Occluded
Satisfied with this diagnostic result we concluded the procedure. The sheath tip was pulled and direct manual pressure was held over the puncture site. Hemostasis was achieved. A sterile dressing was applied.
The patient tolerated the procedure well and was taken to the recovery area in stable condition.
Attestation: I was present and responsible for the entire procedure.
Signed:
Bryan Daley III, MD
Vascular Surgery
[facility]
[2024-07-20] MEDS: LIPITOR 40 MG PO (21:26)
[2024-07-20] MEDS: NSS 1000 IV (21:32)
--- NOTE | 2024-07-20 21:59 | PTCARENOTE ---
Received patient from PACU at 2030. Pt laying flat in bed. Doppler pedals. R pop BAER. SR on the monitor, HR in the 60s. Pt verbalizes understanding of activity restrictions. Heparin to start tomorrow morning as per Dr. Daley. No complaints from pt
at this time, call puente within reach.
[2024-07-21 03:38] VITALS: BP 88/61
[2024-07-21 03:39] VITALS: BP 99/62
[2024-07-21 04:18] LABS: INR 1.01; PT 13.6 Sec (11.4-14.6)
[2024-07-21 04:33] LABS: Hematocrit 36.6 % (39.0-52.0); Hemoglobin 12.1 g/dL (13.0-18.0); Mean Corp Hgb Conc. 33.1 g/dL (33.0-37.0); Mean Corpuscular Hgb 29.5 pg (27.0-31.0); Mean Corpuscular Volume 89.3 fL (80.0-94.0); Mean Platelet Volume 10.2 fL (7.4-10.4); Platelet Count 116 10^3/uL (130-400); Red Cell Dist. Width 14.5 % (11.5-14.5)
[2024-07-21 04:39] LABS: Blood Urea Nitrogen 22 mg/dl (9-20); Calcium 9.4 mg/dl (8.4-10.2); Carbon Dioxide 24 mmol/L (22-30); Chloride 109 mmol/L (98-107); Estimated Creatinine Clearance 48 ml/min; Glucose 109 mg/dl (70-99); Potassium 3.8 mmol/L (3.5-5.1); Sodium 140 mmol/L (135-145); eGFR 56.93
[2024-07-21 06:00] VITALS: BMI 27.8
[2024-07-21] MEDS: HEPARIN 25000 UNITS/250 ML IV (06:00)
[2024-07-21 06:54] VITALS: BP 112/71
--- NOTE | 2024-07-21 07:00 | PTCARENOTE ---
Heparin restarted at 0600 at 1300 units/hr as per Dr. Daley.
--- NOTE | 2024-07-21 07:13 | W.PN.HOSP.TC ---
Addendum entered and electronically signed by Uri Tate MD 07/21/24 23:01:
Attending Addendum-
I saw and evaluated the patient. I reviewed the resident�s note and agree with findings and plan as documented in the resident�s note. Sub: Denies CP palps SOB SAMUEL. 'Im going home no matter what' Full 12 point ROS reviewed and negative except as
documented Exam: Vitals reviewed in chart GEN-NAD heart RRR lungs clear and soft LE faint pules b/l LE right groin no bruits
Plan:
#Limb threatening Right lower limb ischemia
- 07/20-Diagnostic right lower extremity arteriogram
- start eliquis
- to return for bypass after one week
#Peripheral Artery Disease s/p Right Carotid Endarterectomy
-AAA s/p Endovascular Repair
-Continue aspirin and Plavix
#Ischemic CM/CAD/HFrEF-not in AE
-echo 07/15-Left ventricle is mildly dilated. Severely reduced left ventricular systolic function. Left ventricular ejection fraction is 15-20% by visual estimation.
Global hypokinesis with regional variations. Mild concentric left ventricular hypertrophy. Stage I diastolic dysfunction suggestive of abnormal relaxation.
-Cardiology evaluated and patient underwent nuclear stress test which was normal
-s/p LHC with RCA SHUN placed on 07/17
-Recommended to be on DAPT 6 to 12 months continuously
-cont faxiga lisinopril and coreg
-eventual ICD
# Essential Hypertension
-cont coreg lisinopril
#Hyperlipidemia
-Continue atorvastatin
#COPD, no acute exacerbation
-Continue Spiriva
#BPH
-Continue finasteride
#GERD
-Continue Protonix
#Tobacco Use Disorder / Nicotine Dependence
-Encourage smoking cessation
-Continue nicotine patch
DVT prophylaxis : heparin subq
Code Status: Full Code->DNR 07/20
Time spent coordinating care, DC planning, review of DC plan of care with resident, transition of care, review of records, med rec/scripts sent electronically, consults, notes, d/w consultants, nursing, family, and CM� 35mins
Original Note:
Today's Communication/Plan
-
D/c on Eliquis, Coreg, Farxiga, Lisinopril. C/w aspirin and now Plavix. Stop Trandolapril. Given nicotine gum and patch for continued smoking cessation, ideally from now until his next surgery. Follow up with Cardiology and schedule for Vascular
surgery in 1-2 weeks.
Assessment / Plan
Assessment / Plan
78-year-old male with past medical history of PAD s/p R carotid endarterectomy, AAA s/p endovascular
#Right LE Limb Ischemia
- CT demonstrating COMPLETE occlusion of prox. R SFA, occluded R prox. PA aneurysm, HIGH GRADE STENOSIS of distal SFA w/ partially thrombosed aneurysm
- US mapping complete, mapping arteriogram complete
- Patient will require RLE redo of groin dissection with possible femoral endarterectomy with iliac stent and internal iliac coil embolization, followed by SFA to AT bypass with grafting. After informed discussion with patient, given his case
complexity and the acuity of his social situation, it was decided that he would be discharged today on Eliquis 5mg BID with follow up surgery to be scheduled within 1-2 weeks.
It was stressed to him the importance of follow up and the risks associated with medication non-compliance/lack of follow up. he is aware of red flag symptoms for which he should return to the ED.
#CAD, s/p RCA stenting 07/17/2024
- Lexiscan stress test revealed severe perfusion defect w/ minimal ischemia (70% stenosis)
- S/p cardiac cath with mid right coronary artery stenting; rec uninterrupted aspirin/Plavix 6-12 months
- c/w DAPT
- Will follow up with cardiology as outpatient
#HFrEF
- Echo 07/15/2024 showing EF15-20%, reduced from 60% in 2013
- occasional leg swelling, but no SOB or orthopnea, proBNP on 07/16/24 338. No signs of volume overload at this time
- c/w GDMT Lisinopril, carvedilol, Farxiga. Follow up as outpatient with cardiology for further GDMT management.
#Extensive peripheral artery disease - H/o right carotid endarterectomy, H/o AAA status post endovascular repair. Continue aspirin as above
#Thrombocytopenia - No sign of bleeding/clotting/bruising. Will monitor plts for HIT on heparin ggt.
#Hypertension � Continue amlodipine and lisinopril.
#Hyperlipidemia - Continue statin
#COPD -Not in acute exacerbation. continue spiriva
#BPH/overactive bladder - Continue finasteride, oxybutynin
#GERD - continue Protonix
#Tobacco use disorder - Smoking 1 pack of cigarettes per day since the age of 11. Will c/w Nicotine patch. patient not amenable to smoking cessation or reduction in smoking
Diet - NPO for procedure today
DVT PPx- Heparin ggt
Code Status - Full Code
Anticipated Discharge: Today
Subjective/Interval History
-
Feeling well this morning, no acute complaints. Ambulating well to the bathroom, no shortness of breath or CP. He has similar symptoms of paresthesia and discomfort in the BL LE, unchanged. No new fevers, chills. Soreness in the R groin at the site
of recent vascular procedure.
Objective Data
-
Labs:
Laboratory Results
07/21/24 07/21/24 07/21/24
03:47 06:00 12:15
WBC 7.0
Hgb 12.1 L
Hct 36.6 L
Plt Count 116 L
PT 13.6
INR 1.01
APTT Cancelled Pending
Sodium 140
Potassium 3.8
Chloride 109 H
Carbon Dioxide 24
BUN 22 H
Creatinine 1.3
Glucose 109 H
Calcium 9.4
Vital Signs:
Vital Signs
Temp Pulse Resp BP Pulse Ox
97.9 F 75 18 120/66 97
07/21/24 07:02 07/20/24 23:00 07/21/24 07:02 07/20/24 23:00 07/21/24 07:02
I&O
07/20/24 07/21/24 07/22/24
06:59 06:59 06:59
Intake Total 360 / 360
Output Total 250 / 250
Balance 360 / 360 -250 / -250
Review of Systems
-
History Source: Patient
Constitutional: Reports No Symptoms
EENT: Reports No Symptoms Reported
Respiratory: Reports No Symptoms
Cardiac: Reports No Symptoms
Abdomen/GI: Reports No Symptoms
Breast: Reports N/A
Genitourinary: Reports Frequency
Musculoskeletal: Reports Muscle Pain
Skin: Reports No Symptoms
Neuro: Reports Other (BL LE Paresthesia, unchanged from prior)
Hematologic / Lymphatic: Denies Bleeding, Bruising or Blood Clots
Physical Exam
-
General: Well Developed, Well Nourished, No Apparent Distress and Comfortable
HEENT: Normocephalic, Atraumatic, Moist Mucous Membranes, Anicteric, [place] Conjunctivae and PERRLA
Respiratory: Clear to Auscultation; Negative Wheezes, Rales or Rhonchi
Cardiac: Regular Rhythm and S1/S2; Negative Murmur or Rub
Breast: N/A
GI: Soft, Nontender, Nondistended and Normal Bowel Sounds
Genito-urinary: Deferred by me
Musculoskeletal: No Clubbing, No Cyanosis and No Edema
Skin: Warm, Dry, IV Access / Catheter Site and Other (R groin gauze dressing clean, without copious drainage/blood. Gauze pad is dry. Area is mildly tender, without surrounding erythema. )
Neuro: Awake, Alert and Oriented
Psych: Calm
[2024-07-21] MEDS: ZESTRIL 20 MG PO (07:27)
[2024-07-21] MEDS: ASPIR LOW (ENTERIC COATED) 81 MG PO (07:27)
[2024-07-21] MEDS: PROTONIX 40 MG PO (07:27)
[2024-07-21] MEDS: PLAVIX 75 MG PO (07:27)
[2024-07-21] MEDS: FARXIGA 10 MG PO (07:27)
[2024-07-21] MEDS: NICODERM TRANSDERMAL 14 MG TRANSDERM (07:27)
[2024-07-21] MEDS: DITROPAN 2.5 MG PO (07:28)
[2024-07-21] MEDS: COREG 3.125 MG PO (07:28)
[2024-07-21] MEDS: PROSCAR 5 MG PO (07:28)
[2024-07-21] MEDS: SPIRIVA RESPIMAT 2.5 MCG 2 PUFF INH (07:53)
--- NOTE | 2024-07-21 08:49 | W.PN.VS ---
Today's Communication / Plan
-
See below.
Assessment/Plan
-
Assessment: 78-year-old male with peripheral arterial disease, chronic bilateral lower extremity claudication that has recently progressed with particular exacerbation and right lower extremity, AAA status post endovascular repair in 2015, he has a
an occluded right SFA and popliteal artery aneurysm occlusion with angiogram evidence of distal reconstitution.
Plan:
Patient's transition to scheduling vascular surgical intervention for right lower extremity PAD has been complicated by a positive stress test which led to a cardiac catheterization and successful PCI to mid right coronary artery. He underwent
diagnostic right lower extremity angiogram yesterday with Dr. Bryan Daley III, revascularization plan for right lower extremity would include RIGHT redo groin dissection, possible need for femoral endarterectomy, iliac artery stent placement for
coverage of iliac artery aneurysm distal to prior stent placement and coil embolization of internal iliac artery, he will also require SFA to AT arterial bypass with propatent graft. However, patient has indicated on several occasions that he is
not willing to stay much longer inpatient due to his social economic concerns at home (his has advanced stage pancreatic cancer). Over discussion with patient it seems best solution would be to discharge him and then bring him back in short
interval as an outpatient for above recommended surgery. Patient indicates he is agreeable to this plan, as it gives him some time to go home to care for his and arrange care in the future for her while he requires admission following vascular
surgical intervention. I provided patient education and stressed in great detail his continued compliance with follow-up with not just as but also cardiology and PCP going forward if he wants to have optimal outcomes. I also stressed that not
complying with recommended surgery could lead to limb loss or even (as patient stated he would never be agreeable to amputation). He reiterated education and provided understanding. I also provided education in great detail of worsening
signs and symptoms of ischemia including increased rest pain, discoloration to digits, coolness, paresthesia, or increased/changed pain from baseline, I then stressed if any signs or symptoms occur of worsening ischemia or any concerning change to
his baseline claudication symptoms he should present to ED immediately. He again verbalized understanding of teaching. We will have our office nonprofit manager reach out to patient to schedule his surgery. I reviewed this plan with the medical team via
[place] text, and all parties are in agreement. This plan was also reviewed with my attending Dr. Bryan Daley III, he is also in agreement.
Recommend smoking cessation
Recommend patient continue anticoagulation given bilateral popliteal artery aneurysms, vascular surgery does not have a preference to which OAC agent is utilized, can provide whichever agent is more cost effective for patient's insurance.
Recommend continue statin therapy.
Subjective Data
-
Date of Service: July 21, 2024
Patient seen and examined at bedside, reports no pain at right groin puncture site. Denies nausea, vomiting, fever, and chills. Reports no changes to discomfort at bilateral lower extremity, he notes at rest he is in no pain at bilateral lower
extremities but does endorse onset of claudication right leg worse than left with ambulation.
Objective Data
-
Vital Signs
Temp Pulse Resp BP Pulse Ox
97.9 F 70 15 112/71 97
07/21/24 07:02 07/21/24 07:57 07/21/24 07:57 07/21/24 06:54 07/21/24 07:57
Intake and Output
07/20/24 07/21/24 07/22/24
06:59 06:59 06:59
Intake Total 360 / 360
Output Total 250 / 250
Balance 360 / 360 -250 / -250
Intake:
Oral fluids 360 / 360
Output:
Urine, Voided 250 / 250
Other:
Number of approximated MODERATE 3
amounts of urine
Lab Results
07/21/24 03:47
07/21/24 03:47
Calcium 9.4 mg/dl (8.4-10.2) 07/21/24 03:47
Total Bilirubin 0.5 mg/dl (0.2-1.3) 07/20/24 04:40
AST 37 U/L (17-59) 07/20/24 04:40
ALT 56 U/L (0-50) H 07/20/24 04:40
Alkaline Phosphatase 172 U/L (38-126) H 07/20/24 04:40
Total Protein 5.8 g/dl (6.3-8.2) L 07/20/24 04:40
Albumin 3.5 g/dl (3.5-5.0) 07/20/24 04:40
Physical Exam
-
No apparent distress, resting in bed comfortably
No tachycardia
No dyspnea on room air
ABD flat, nontender, nondistended
Right groin puncture site CDI with no evidence of hematoma, all surrounding compartments soft
Right foot warm
--- NOTE | 2024-07-21 09:03 | W.PN.CARDCBS ---
Addendum entered and electronically signed by Adolfo Beltran MD 07/21/24 10:26:
I saw and examined the patient.
The BOBBIN SORTER or PA's note was reviewed and I agree with the note.
Comment: General: Well developed, well nourished in NAD.
Neck: Supple, no JVD, HJR, carotids +2 B/L, no bruits bilaterally.
Heart: Non displaced PMI, RRR, no murmurs, No S3, S4, no rubs.
Lungs: Scattered rhonchi throughout
Extremities: No clubbing, cyanosis or edema bilaterally.
Neuro: Grossly nonfocal, awake, alert and oriented x3.
Stable cardiology status for peripheral vascular procedures. No signs or symptoms of CHF
Original Note:
Today's Communication / Plan
-
Cont aspirin and Plavix
Tele stable
No evidence of CHF
Remains stable from cardiac standpoint for vascular procedrues
Impression / Plan
-
Primary Etl Consultant: last seen by Dr. Wheeler in 2014
Assessment:
Presentation with altered sensation/pain to RLE
PAD/RLE ischemia
Severe cardiomyopathy with ejection fraction of 15 to 20% - 07/15/2024
CAD status post RCA stent on 07/17/2024
AAA repair with endovascular graft
iliac artery aneurysms
carotid disease s/p R CEA
LBBB
HTN
HLD
BPH
GERD
COPD/ongoing tobacco use
ECHO 06/2013: EF 60%, moderate to severe concentric LVH, no regional wall motion abnormalities noted, mildly dilated LA, mild MR, dilated aortic root
Echo 07/15/24: EF 15 to 20%, global hypokinesis with regional variations, mild concentric LVH, stage I diastolic dysfunction, mild to moderate MR, no pericardial effusion, ascending aorta diameter 4.3 cm
Catheterization 07/17/24: Successful stenting of mid RCA with placement of 2.75 x 26 mm Alejandro stent, LVEDP 21
Plan:
-Patient completed peripheral angiogram 07/20/24 and patient being considered for RLE peripheral bypass.
-Heparin gtt per vascular surgery
-Cardiology initially saw patient for cardiac clearance 07/15/24 and following abnormal stress test the patient had cardiac cath and RCA PCI 07/17/24
-Cont aspirin and Plavix following coronary stent 07/17/24
-LDL 55 and outpatient dose of atorvastatin 40 mg daily has been continued
-Smoking cessation encouraged, but patient does not believe he can quit at this point.
-EF 15-20% by echo. Patient will need a repeat echo in 40 days given RCA PCI
-pro-BNP 338 on 07/16/24 and weight stable. Outpatient dose of HCTZ 25 mg daily is on hold. No evidence of volume overload.
-New to Coreg 3.125 mg BID
-New to lisinopril 20 mg daily. If we want to switch to Entresto then he will need a prior auth
-New to Farxiga 10 mg daily, appreciate help of CM on checking cost, it will be $15/month
-Tele reviewed by me and remains in SR without arrhythmia or pause
HPI: Medically complex 78-year-old male with right lower extremity pain/claudication and significant peripheral arterial disease and CT angio with runoff which demonstrated increased size of right common iliac artery aneurysm with complete occlusion
of right SFA, with occluded popliteal artery aneurysm but one-vessel runoff to the foot who is felt to require extensive surgical revascularization to improve claudication/rest pain including right femoral endarterectomy with right arterial bypass,
and right iliac artery stenting for increasing aneurysm.
Progress Note - Etl Consultant
Subjective
Date of Service: July 21, 2024
No chest pain
Objective
Labs:
07/21/24 03:47
07/21/24 03:47
Labs
Hgb 12.1 g/dL (13.0-18.0) L 07/21/24 03:47
Hct 36.6 % (39.0-52.0) L 07/21/24 03:47
Plt Count 116 10^3/uL (130-400) L 07/21/24 03:47
PT 13.6 Sec (11.4-14.6) 07/21/24 03:47
INR 1.01 07/21/24 03:47
APTT Cancelled 07/21/24 06:00
Sodium 140 mmol/L (135-145) 07/21/24 03:47
Potassium 3.8 mmol/L (3.5-5.1) 07/21/24 03:47
BUN 22 mg/dl (9-20) H 07/21/24 03:47
Creatinine 1.3 mg/dL (0.7-1.3) 07/21/24 03:47
Glucose 109 mg/dl (70-99) H 07/21/24 03:47
Vital Signs and I&O:
Vital Signs
Temp Pulse Resp BP Pulse Ox
97.9 F 70 15 112/71 97
07/21/24 07:02 07/21/24 07:57 07/21/24 07:57 07/21/24 06:54 07/21/24 07:57
Vital Signs
Temp Pulse Resp BP Pulse Ox
97.9 F 70 15 112/71 97
07/21/24 07:02 07/21/24 07:57 07/21/24 07:57 07/21/24 06:54 07/21/24 07:57
Intake & Output
07/19/24 07/20/24 07/21/24 07/22/24
06:59 06:59 06:59 06:59
Intake Total 360 / 360
Output Total 550 / 550 250 / 250
Balance -550 / -550 360 / 360 -250 / -250
Physical Exam
Physical Exam
GEN: AAO x3
HEENT: EOMI
LUNGS: RA. No audible wheeze
CV: SR on tele
EXT: No edema B/L LE
NEURO: Gross non-focal
SKIN: No rash
--- NOTE | 2024-07-21 10:30 | CM ---
Pricing on Eliquis through the patient's [facility] is covered at $14 for a 30 day supply
--- NOTE | 2024-07-21 10:30 | PTCARENOTE ---
Patient AO x3, cooperative. SR BBB, denies pain. Has chronic pins and needle sensation from the ankle to feet bilaterally. Doppler pulses. Post tibial on the right very faint with Doppler, skin warm, dry. Expressing wanting to be discharged today
because he has a sick and dog at home. Patient currently working with PT
--- NOTE | 2024-07-21 10:52 | CM ---
Chart reviewed. Patient is independent of ADLS, lives with his in a [address], 3 [address], 0 DME. Plan is for the patient to return home. CM to follow
[2024-07-21 11:11] VITALS: BP 106/69
[2024-07-21 11:18] VITALS: PULSE 70
--- NOTE | 2024-07-21 11:19 | PTOTSP ---
pt currently requires no assistance to supervision to complete simple ADLs, functional transfers, ambulation. pt demonstrates no acute OT needs at this time, will sign off.
[2024-07-21 13:57] VITALS: BP 115/92
--- NOTE | 2024-07-21 14:48 | PTCARENOTE ---
Patient discharged to home. IV and telemetry removed. Instructions reviewed, patient verbalized understanding. Escorted to his car in the emergency room parking lot
--- NOTE | 2024-07-21 17:07 | W.DCSUMMARY ---
Addendum entered and electronically signed by Uri Tate MD 07/21/24 23:02:
Read, reviewed, and agree. See same day progress note for additional details.
Arvind Tate MD
Original Note:
Documented by User: Keshawn Mederos MD, Resident 07/21/24 17:30
Discharge Summary
Discharge Data
Date of Admission: 07/13/24
Date of Discharge: 07/21/24
Total time spent discharging patient (in min): >30m
-
Pending Results: No
Hospital Course
Discharging Physician : Dr. Keshawn Mederos, Dr. Uri Tate
Disposition : Home
Primary care physician : Dr. Marcella Chavez
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
Chronic Discharge diagnosis : CAD, HFrEF, PAD, Thrombocytopenia, Hypertension, Hyperlipidemia, COPD, BPH, GERD, Tobacco Use Disorder
Hospital Course :
Patient was initially brought to [facility] at the request of his vascular surgeon for complaints of progressive lower extremity weakness and paresthesia. He underwent diagnostic right lower extremity angiogram for which revascularization was planned,
however due to significant social circumstances the patient took time to discuss with his how he should proceed. It was eventually decided that he would undergo the procedure, and Cardiology was consulted for clearance. Pre-op ECG was done
which showed new LBBB. Echocardiogram was done which showed EF of 15-20% w/ global hypokinesis (full report below). Lexiscan Nuclear stress test was done which showed significant perfusion defect. He was initiated on GDMT therapy as tolerated.
Cardiac Catheterization was performed and stenting of his right coronary artery was done. He was started on DAPT status post stenting. He was also started and maintained on heparin drip prior to arteriogram. Mapping was done. Surgery was planned,
however patient was adamant to return home. Given hemodynamic and symptomatic stability, shared decision making was had and the patient was ultimately discharged home on oral anticoagulation (Eliquis), continuing DAPT, and GDMT (Coreg, Farxiga,
Lisinopril). He was counselled extensively on red flag symptoms, risks of medication noncompliance, risks of not returning to scheduled procedure, and risks of continuing smoking perioperatively. He was also sent home with a script for Nicotine
patches and nicotine gum to aid in smoking cessation.
All other chronic medical conditions were stable throughout admission unless otherwise mentioned above.
Important imaging findings :
CT Abd Aorta Angio W/ Run Off:
1. There is an aortobiiliac endograft with stable size of the excluded aneurysm sac measuring 5.0 cm. There is a stable 5.5 cm suprarenal abdominal aortic aneurysm.
2. There is slightly increased size of the right common iliac artery aneurysm measuring 3.6 cm, previously 2.9 cm. There is complete occlusion of the proximal right superficial femoral artery with reconstitution at the level of the tibioperoneal
trunk. There is three-vessel runoff proximally without discrete opacification at the level of the ankle on initial images, however delayed images demonstrate single vessel runoff via the anterior tibial artery.. 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
3. There is similar size of the left common iliac artery dilation measuring 2.5 cm. 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 There
is one-vessel runoff at the level of the ankle via the peroneal vein.
4. Atrophic right kidney, unchanged.
5. Bilateral inguinal hernias with the left containing nonobstructed colon.
US GURU/TBI Only JENN:
Right leg: GURU severely decreased measuring 0.30. Absent digital signal. Monophasic continuous flow within the dorsalis pedis artery. No signal identified from the posterior tibial artery, likely occluded.
Left leg: GURU within normal with measuring 1.01. TBI mildly decreased measuring 0.54. Multiphasic flow within the posterior tibial artery. Monophasic flow within the dorsalis pedis artery suggesting infrapopliteal disease.
CR Chest - 2 Views:
The lungs appear clear.
Cardiac silhouette size is enlarged with no evidence for pulmonary edema or pleural effusion.
Echocardiogram
1. Left ventricle is mildly dilated. Severely reduced left ventricular systolic
function. Left ventricular ejection fraction is 15-20% by visual estimation.
Global hypokinesis with regional variations. Mild concentric left ventricular
hypertrophy. Stage I diastolic dysfunction suggestive of abnormal relaxation.
2. Normal right ventricular size and function.
3. Mild to moderate mitral regurgitation.
4. No pericardial effusion.
5. Asc Ao Diameter 4.3cm
Nuclear Lexiscan Stress Test
Lexiscan nuclear stress as reveals a large, severe, predominately fixed inferior, inferoseptal, anteroseptal and mid to distal anterior and apical perfusion defect. There is minimal ischemia.
The left ventricle is dilated with severe global hypokinesis and ejection fraction of 31%.
Stress Risk is high risk study (>3% CT or /year)
Procedure findings :
LEFT HEART CATH AND CORONARY INTERVENTION:
1. Successful stenting of the mid right coronary artery with placement of a 2.75 x 26 mm Alejandro stent that was postdilated to high pressures with a 3.5 mm noncompliant balloon
2. Mildly elevated left ventricular filling pressures
Procedure:
1.) Diagnostic right lower extremity arteriogram
2.) Introduce wire catheter to aorta from right femoral access
3.) Ultrasound-guided percutaneous access to the right common femoral artery
Common femoral artery: Patent with no significant stenosis identified. Calcified. Surgical clips identified in the right groin
Profunda femoral artery: Patent. No significant stenosis identified. Robust branching network identified in the thigh.
Superficial femoral artery: Heavily calcified and occluded throughout
Popliteal artery: Calcified. Occluded above the knee. Reconstitutes behind the knee.
Anterior tibial artery: High takeoff behind the knee. Patent. Dominant tibial artery runoff. Continues across the ankle to form the dorsalis pedis artery in the foot.
Tibioperoneal trunk: Patent
Peroneal artery: Patent
Posterior tibial artery: Occluded
Discharge Plan
-
Patient Disposition: Home (Routine Discharge)
Discharge Diagnosis/Procedures: Angioplasty and stent to Right Coronary artery
Condition: Fair
Diet: Low Cholesterol
Activity: No strenuous activity
Additional Activity: No lifting greater than 10 pounds or strenuous activity for 2 weeks
Driving Restrictions: No driving for 24 hours
Bathing Restrictions: OK to Shower
Other Services: Cardiac Rehab
Activity Restrictions/Additional Instructions:
Please call [facility] to get scheduled. P: [phone]
Our vascular surgical brace maker from the office will call you to schedule your upcoming vascular procedure, and provide all preoperative instructions.
Stand Alone Forms: DC Instructions- Cath/EP Lab, DC Instr - Vascular OR
Referrals:
Edita Albert PA-C [Specified Professional Personl] - 08/04/24 2:40 pm (Cardiology followup appointment)
Bryan Daley III, MD [Active] -
Marcella Chavez DO [Family Provider] -
Additional Discharge Medication Instructions: START TAKING:
Carvedilol 3.125mg one tablet twice per day
Clopidogrel 75mg one tablet per day
Dapagliflozin Propanediol 10mg one tablet per day
Eliquis 5mg one tablet per day
Lisinopril 20mg one tablet per day
STOP TAKING:
Trandolapril
Prescriptions:
New
nicotine 14 mg/24 hr Patch 24 Hour
14 mg transdermal DAILY 30 Days Qty: 30 3RF
nicotine (polacrilex) 2 mg Gum
2 mg PO Q4HPRN PRN (Reason: tobacco craving) 30 Days Qty: 30 3RF
lisinopril 20 mg Tablet
20 mg PO DAILY 90 Days Qty: 90 3RF
clopidogrel 75 mg Tablet
75 mg PO DAILY 90 Days Qty: 90 3RF
carvedilol 3.125 mg Tablet
3.125 mg PO BID 90 Days Qty: 180 3RF
dapagliflozin propanediol 10 mg Tablet
10 mg PO DAILY 90 Days Qty: 90 3RF
Eliquis 5 mg tablet
5 mg PO BID 30 Days Qty: 60 1RF
Continued
aspirin [Ecotrin Low Strength] 81 MG tablet,delayed release (DR/EC)
81 mg PO DAILY
finasteride 5 MG tablet
5 mg PO DAILY
amlodipine 5 MG tablet
5 mg PO BID
atorvastatin 40 mg Tablet
40 mg PO QPM
omeprazole 40 mg Capsule,Delayed Release(Dr/Ec)
40 mg PO DAILY
oxybutynin chloride 5 mg Tablet Extended Release 24hr
5 mg PO DAILY
hydrochlorothiazide 25 mg Tablet
25 mg PO QPM
tiotropium bromide [Spiriva with HandiHaler] 18 mcg Capsule, W/Inhalation Device
1 cap INHALATION R DAILY
Discontinued
trandolapril 2 mg Tablet
2 mg PO DAILY
Discharge Orders:
Discharge Patient (As Directed); Ordered 07/21/24
Ordered By: Keshawn Mederos
Care Plan Goals
Care Plan Goals:
Problem: Readiness for enhanced knowledge related to diagnosis and treatment plan
Goal: Understand your diagnosis and treatment plan needs, including medications if applicable.
Instructions: Know your diagnosis, underlying causes and treatment plan options, including medications if applicable. Consult with your health care team to learn about your diagnosis and treatment plan, including medications if applicable.
Discharge Date and Time
Discharge Date/Time: 07/21/24 14:50
Print Language: PARAGUAYAN

Documented by User: Uri Tate MD 07/21/24 22:58
Discharge Summary
Discharge Data
Date of Admission: 07/13/24
Date of Discharge: 07/21/24
Discharge Plan
-
Patient Disposition: Home (Routine Discharge)
Discharge Diagnosis/Procedures: Angioplasty and stent to Right Coronary artery
Condition: Fair
Diet: Low Cholesterol
Activity: No strenuous activity
Additional Activity: No lifting greater than 10 pounds or strenuous activity for 2 weeks
Driving Restrictions: No driving for 24 hours
Bathing Restrictions: OK to Shower
Other Services: Cardiac Rehab
Activity Restrictions/Additional Instructions:
Please call [facility] to get scheduled. P: [phone]
Our vascular surgical brace maker from the office will call you to schedule your upcoming vascular procedure, and provide all preoperative instructions.
Stand Alone Forms: DC Instructions- Cath/EP Lab, DC Instr - Vascular OR
Referrals:
Edita Albert PA-C [Specified Professional Personl] - 08/04/24 2:40 pm (Cardiology followup appointment)
Bryan Daley III, MD [Active] -
Marcella Chavez DO [Family Provider] -
Additional Discharge Medication Instructions: START TAKING:
Carvedilol 3.125mg one tablet twice per day
Clopidogrel 75mg one tablet per day
Dapagliflozin Propanediol 10mg one tablet per day
Eliquis 5mg one tablet per day
Lisinopril 20mg one tablet per day
STOP TAKING:
Trandolapril
Prescriptions:
New
nicotine 14 mg/24 hr Patch 24 Hour
14 mg transdermal DAILY 30 Days Qty: 30 3RF
nicotine (polacrilex) 2 mg Gum
2 mg PO Q4HPRN PRN (Reason: tobacco craving) 30 Days Qty: 30 3RF
lisinopril 20 mg Tablet
20 mg PO DAILY 90 Days Qty: 90 3RF
clopidogrel 75 mg Tablet
75 mg PO DAILY 90 Days Qty: 90 3RF
carvedilol 3.125 mg Tablet
3.125 mg PO BID 90 Days Qty: 180 3RF
dapagliflozin propanediol 10 mg Tablet
10 mg PO DAILY 90 Days Qty: 90 3RF
Eliquis 5 mg tablet
5 mg PO BID 30 Days Qty: 60 1RF
Continued
aspirin [Ecotrin Low Strength] 81 MG tablet,delayed release (DR/EC)
81 mg PO DAILY
finasteride 5 MG tablet
5 mg PO DAILY
amlodipine 5 MG tablet
5 mg PO BID
atorvastatin 40 mg Tablet
40 mg PO QPM
omeprazole 40 mg Capsule,Delayed Release(Dr/Ec)
40 mg PO DAILY
oxybutynin chloride 5 mg Tablet Extended Release 24hr
5 mg PO DAILY
hydrochlorothiazide 25 mg Tablet
25 mg PO QPM
tiotropium bromide [Spiriva with HandiHaler] 18 mcg Capsule, W/Inhalation Device
1 cap INHALATION R DAILY
Discontinued
trandolapril 2 mg Tablet
2 mg PO DAILY
Discharge Orders:
Discharge Patient (As Directed); Ordered 07/21/24
Ordered By: Keshawn Mederos
Care Plan Goals
Care Plan Goals:
Problem: Readiness for enhanced knowledge related to diagnosis and treatment plan
Goal: Understand your diagnosis and treatment plan needs, including medications if applicable.
Instructions: Know your diagnosis, underlying causes and treatment plan options, including medications if applicable. Consult with your health care team to learn about your diagnosis and treatment plan, including medications if applicable.
Discharge Date and Time
Discharge Date/Time: 07/21/24 14:50
Print Language: PARAGUAYAN
== END 2024-07-21 14:50 | disposition home or self-care (01) | DRG 322 ==
LOC: IVU 20:06
PROVIDERS: Hospitalist; Internal Medicine Cardiovascular Disease; Internal Medicine Interventional Cardiology; Nurse Practitioner; Nurse Practitioner Acute Care; Nurse Practitioner Family; Physician Assistant; Physician Assistant Medical; Student in an Organized Health Care Education/Training Program; ADMITTING PHYSICIAN Internal Medicine; ATTENDING PHYSICIAN Family Medicine; CONSULT PHYSICIAN Internal Medicine Cardiovascular Disease; CONSULT PHYSICIAN Surgery Vascular Surgery; EMERGENCY PHYSICIAN Emergency Medicine; FAMILY PHYSICIAN Family Medicine
PROC: 4A12XM4 Monitoring of Cardiac Stress, External Approach (ICD-10-PCS; 2024-07-16)
PROC: 3E033HZ Introduction of Radioactive Substance into Peripheral Vein, Percutaneous Approach (ICD-10-PCS; 2024-07-16)
PROC: B240ZZ3 Ultrasonography of Single Coronary Artery, Intravascular (ICD-10-PCS; 2024-07-17)
PROC: B2111ZZ Fluoroscopy of Multiple Coronary Arteries using Low Osmolar Contrast (ICD-10-PCS; 2024-07-17)
PROC: 027034Z Dilation of Coronary Artery, One Artery with Drug-eluting Intraluminal Device, Percutaneous Approach (ICD-10-PCS; 2024-07-17)
PROC: 4A023N7 Measurement of Cardiac Sampling and Pressure, Left Heart, Percutaneous Approach (ICD-10-PCS; 2024-07-17)
PROC: 04JY3ZZ Inspection of Lower Artery, Percutaneous Approach (ICD-10-PCS; 2024-07-20)
PROC: B41F1ZZ Fluoroscopy of Right Lower Extremity Arteries using Low Osmolar Contrast (ICD-10-PCS; 2024-07-20)
DX: I70.221 Atherosclerosis of native arteries of extremities with rest pain, right leg (principal); I42.0 Dilated cardiomyopathy; I50.22 Chronic systolic (congestive) heart failure; F17.210 Nicotine dependence, cigarettes, uncomplicated; E78.5 Hyperlipidemia, unspecified; I72.4 Aneurysm of artery of lower extremity; I70.8 Atherosclerosis of other arteries; J44.9 Chronic obstructive pulmonary disease, unspecified; I72.3 Aneurysm of iliac artery; K21.9 Gastro-esophageal reflux disease without esophagitis; I25.10 Atherosclerotic heart disease of native coronary artery without angina pectoris; I25.5 Ischemic cardiomyopathy; I11.0 Hypertensive heart disease with heart failure; I44.7 Left bundle-branch block, unspecified; N40.1 Benign prostatic hyperplasia with lower urinary tract symptoms; N32.81 Overactive bladder; I34.0 Nonrheumatic mitral (valve) insufficiency; K40.20 Bilateral inguinal hernia, without obstruction or gangrene, not specified as recurrent; N26.1 Atrophy of kidney (terminal); D69.6 Thrombocytopenia, unspecified; Z90.49 Acquired absence of other specified parts of digestive tract; Z79.82 Long term (current) use of aspirin; Z86.79 Personal history of other diseases of the circulatory system; Z63.79 Other stressful life events affecting family and household
CPT/HCPCS: 36200; 71046; 75635; 75710; 78452; 80048; 80053; 80061; 83036; 83880; 85025; 85027; 85347; 85610; 85730; 86850; 86900; 86901; 92978; 93005; 93017; 93306; 93458; 93922; 93970; 94640; 96361; 96374; 97161; 97165; 99152; 99153; 99285; 99406; A9500; C1725; C1753; C1769; C1874; C1894; C9600; J2785; Q9967

== ENCOUNTER 2024-08-18 06:00 | Inpatient (IN) | payer MEDICARE, OTHER, SELFPAY ==
[2024-08-13 09:11] VITALS: BMI 30.8
[2024-08-13 09:55] LABS: INR 0.95; PT 13.2 Sec (11.4-14.6)
[2024-08-13 09:56] LABS: APTT 29.4 Sec (23.4-35.0)
[2024-08-13 10:04] LABS: % Basophils 0.8 % (0-2); % Eosinophils 1.8 % (0-6); % Immature Granulocytes 0.8 % (0-0.5); % Lymphocytes 15.5 % (20.5-51.1); % Monocytes 9.8 % (1.7-9.3); % Neutrophils 71.3 % (42.2-75.2); Absolute Basophils 0.1 10^3/uL (0-0.2); Absolute Eosinophils 0.1 10^3/uL (0-0.7); Absolute Immature Granulocytes 0.1 10^3/uL (0-0.05); Absolute Lymphocytes 1.2 10^3/uL (1.2-3.4); Absolute Monocytes 0.8 10^3/uL (0.1-0.6); Absolute Neutrophils 5.7 10^3/uL (1.4-6.5); Hematocrit 41.7 % (39.0-52.0); Hemoglobin 13.8 g/dL (13.0-18.0); Mean Corp Hgb Conc. 33.1 g/dL (33.0-37.0); Mean Corpuscular Hgb 29.9 pg (27.0-31.0); Mean Corpuscular Volume 90.3 fL (80.0-94.0); Mean Platelet Volume 10.3 fL (7.4-10.4); Nucleated Red Blood Cells % 0 % (-); Platelet Count 141 10^3/uL (130-400); Red Blood Cell Count 4.62 10^6/uL (4.70-6.10); Red Cell Dist. Width 14.6 % (11.5-14.5)
[2024-08-13 10:19] LABS: Blood Urea Nitrogen 41 mg/dl (9-20); Calcium 10.1 mg/dl (8.4-10.2); Carbon Dioxide 25 mmol/L (22-30); Chloride 109 mmol/L (98-107); Estimated Creatinine Clearance 46 ml/min; Glucose 107 mg/dl (70-99); Potassium 4.5 mmol/L (3.5-5.1); Sodium 144 mmol/L (135-145); eGFR 52.09
--- NOTE | 2024-08-13 14:35 | PTCARENOTE ---
Abnormal BUN 41, eGFR 52.09 collected 08/13/24, Carol Ann and Nahomi at Dr Daley's office notified.
[2024-08-18] VITALS (23 sets, daily range): BP systolic 82–130; BP diastolic 49–84; BMI 28.1
[2024-08-18] MEDS: PERIDEX 0.12% ORAL RINSE 15 ML PO (07:07)
[2024-08-18] MEDS: NSS 500 IV (07:07)
[2024-08-18] MEDS: BACTROBAN NASAL 1 GRAM NASAL (07:07)
[2024-08-18 08:45] LABS: B.E. - POC -1.9 mmol/L; Glucose - POC 116 mg/dl (70-99); HCO3 - POC 25 mmol/L (21-28); Hematocrit - POC 40 % PCV (42-52); Hemodilution- POC Yes; Hemoglobin Calculated - POC 13.6; Ionized Calcium - POC 1.31 mmol/L (1.15-1.33); Lactate - POC 0.63 mmol/L (0.36-0.75); O2 Saturation %Calculated-POC 99.8 % (94-98); PCO2 - POC 47 mmHg (35-48); PO2 - POC 233 mmHg (83-108); Potassium - POC 4.1 mmol/L (3.5-5.1); Sodium - POC 145 mmol/L (136-145); Specimen Type - POC Arterial; pH - POC 7.32 (7.35-7.45)
[2024-08-18 09:38] LABS: ACT-LR - POC 308 Seconds (116-155)
[2024-08-18 10:38] LABS: ACT-LR - POC 271 Seconds (116-155)
[2024-08-18 11:42] LABS: ACT-LR - POC 197 Seconds (116-155)
[2024-08-18 12:48] LABS: ACT-LR - POC 226 Seconds (116-155)
[2024-08-18] MEDS: ADRENALIN 250 IV (14:35)
[2024-08-18 14:42] LABS: Hematocrit 36.8 % (39.0-52.0); Hemoglobin 12.2 g/dL (13.0-18.0); Mean Corp Hgb Conc. 33.2 g/dL (33.0-37.0); Mean Corpuscular Hgb 30.2 pg (27.0-31.0); Mean Corpuscular Volume 91.1 fL (80.0-94.0); Mean Platelet Volume 10.1 fL (7.4-10.4); Platelet Count 129 10^3/uL (130-400); Red Blood Cell Count 4.04 10^6/uL (4.70-6.10); Red Cell Dist. Width 14.6 % (11.5-14.5); White Blood Cell Count 13.7 10^3/uL (4.8-10.8)
[2024-08-18 14:51] LABS: Blood Urea Nitrogen 34 mg/dl (9-20); Calcium 8.5 mg/dl (8.4-10.2); Carbon Dioxide 23 mmol/L (22-30); Chloride 112 mmol/L (98-107); Estimated Creatinine Clearance 45 ml/min; Glucose 224 mg/dl (70-99); Potassium 4.1 mmol/L (3.5-5.1); Sodium 142 mmol/L (135-145); eGFR 52.09
[2024-08-18 15:31] LABS: APTT > 200 Sec (23.4-35.0)
[2024-08-18] MEDS: NOVOLOG vial 2 UNITS SC (15:46)
[2024-08-18] MEDS: NSS 1000 IV (16:28)
--- NOTE | 2024-08-18 16:35 | OR.RPT ---
Operative Report
Operative Report
Date of Operation: 08/18/2024
Pre Op Diagnosis:
1. Right common iliac artery aneurysm
2. [place] artery atherosclerosis with ischemic rest pain, right foot
3. Thrombosed popliteal artery aneurysm
4. Active smoking
5. 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
Post Op Diagnosis:
1. Right common iliac artery aneurysm
2. [place] artery atherosclerosis with ischemic rest pain, right foot
3. Thrombosed popliteal artery aneurysm
4. Active smoking
5. 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
Procedure:
1. Reoperative right groin surgery
2. Endovascular exclusion of right common iliac artery aneurysm (overlapping Endologix Ovation stents 12 mm x 160 mm; 12 mm x 140 mm)
3. Coil embolization of right internal iliac artery (7 mm, 9 mm, 12 mm Concerto detachable coils)
4. Right common femoral artery endarterectomy with patch angioplasty using bovine pericardium
5. Right common femoral artery to tibioperoneal trunk bypass using 6 mm ring reinforced PTFE
6. Completion arteriogram, right lower extremity
Surgeon: Bryan Daley III, MD
Brine Process Operator: Thomas Negrete MD PGY1
Anesthesia: General
Complications: None
Estimated Blood Loss: 300 cc
History and Indications for Procedure: 78-year-old male with multiple medical comorbidities. Ischemic rest pain of the right foot with a thrombosed popliteal artery aneurysm. Previous aortic stent graft repair of abdominal aortic aneurysm. On
cross-sectional imaging was also found to have a right common iliac artery aneurysm at the distal end of his right iliac limb. He was brought to the operating room for endovascular exclusion of his right common iliac artery aneurysm and open
revascularization of his right lower extremity.
Procedure in Detail: Mainor Arias was correctly identified and placed supine on the operating table. After adequate induction of anesthesia the abdomen, pelvis and right leg were prepped and draped in the usual sterile fashion. The patient received
preoperative antibiotics. A timeout was performed with the nursing and anesthesia staff confirming the patients identity and the nature and laterality of the procedure.
A vertical incision was made over the right groin through the previous scar. This was a reoperative groin field (prior cutdown for EVAR). Electrocautery and sharp dissection were used to expose the femoral vessels. Proximal control was obtained on
the common femoral artery at the inguinal ligament. Distal control was obtained around the proximal profunda femoral artery and proximal superficial femoral artery (occluded). The common femoral artery was heavily calcified but there was a soft
spot for endovascular access.
Under direct visualization the right common femoral artery was punctured in a retrograde fashion with a micropuncture needle. We then upsized to an 11French sheath over a [employer] wire. Systemic heparin was administered. A retrograde iliac
arteriogram was performed which demonstrated the right common iliac artery aneurysm as well as the iliac bifurcation and origin of the right internal iliac artery. Under roadmap guidance we selected the right internal iliac artery using a KMP
catheter and Glidewire. The catheter was advanced into the proximal internal iliac artery and proper position was confirmed with an arteriogram. I exchanged out for a V18 wire. A Maestro microcatheter was then advanced over the V18 wire into the
proximal internal iliac artery. Under direct radiographic visualization I placed a 7 mm, 9 mm and then 12 mm Concerto detachable coils 1 at a time. This filled the internal iliac artery space nicely and this was confirmed with a post appointment
arteriogram. Satisfied with successful coil embolization of the right internal iliac artery we continued with the remainder of the endovascular procedure. The catheter was removed from the internal iliac artery. Using a KMP catheter and Glidewire
I then selected the right iliac limb and navigated the wire and catheter through the aortic stent graft into the proximal descending thoracic aorta. The wire was exchanged out for a short floppy tip Amplatz wire. We then advanced the first iliac
limb under radiographic guidance. This was an Endologix Ovation 12 mm x 160 mm limb. The proximal markers were lined up with the flow divider of the existing aortic stent graft and deployed successfully in the desired location. I then extended
this distally with a 12 mm x 140 mm limb, extending across the iliac bifurcation and into the mid right external iliac artery. The newly placed iliac limbs were then profiled with a Q50 balloon from the proximal seal zone through the entire length
of the iliac limbs, all areas of overlap and the distal seal zone. Completion arteriogram demonstrated an excellent technical result with successful exclusion of the right common iliac artery aneurysm and patent right iliac limb stents.
A distal incision was made on the medial proximal calf. The tibioperoneal trunk was carefully exposed and proximal and distal control obtained with vessel loops. The patient had a known high takeoff of the anterior tibial artery. While attempting
to obtain proximal vessel loop control of the proximal tibioperoneal trunk the back wall of the artery was injured. I could not control this with direct suture repair and ultimately had to ligate the artery to achieve hemostasis.
A tunnel was created between the two incisions.
A 6 mm ringed Propaten graft was brought through the tunnel, keeping the proper orientation with the blue dots on the graft.
The Amplatz wire and 11 [place] sheath were removed from the right femoral access. The distal vessel loops were secured. A Derra clamp was applied to the proximal common femoral artery at the inguinal ligament. The sheath access puncture site was
extended proximally and distally with Camp[place]de scissors.significant calcified plaque was present within the common femoral artery especially along the posterior wall and at the origin of the profunda femoral artery. An endarterectomy was performed
with a [place] elevator. Additional plaque was everted from the proximal profunda femoral artery. Brisk backbleeding was established from the profunda and the artery was flushed with heparinized saline solution. The proximal end of the plaque was
pulled out with forceps up to the level of the Derra clamp. A 1 cm width precut piece of bovine pericardium was sewn in place as a patch angioplasty using a running 5-0 Prolene suture. At the conclusion of the patch anastomosis I made a slit in
the bovine pericardium with an 11 blade and extended this proximally distally with Campoverde scissors. The end of the PTFE graft was beveled and an end-to-side anastomosis was created with a running CV 6 [place]-Black suture. Following this anastomosis the
proximal clamp was removed as well as the distal vessel loops. There was brisk pulsatile bleeding from the distal end of the graft. The graft was back flushed with heparinized saline and a soft clamp applied to the graft just distal to the
anastomosis. Hemostasis was achieved at the suture line.
I then secured the proximal and distal loops on the tibioperoneal trunk. An 11-blade was used to carefully make an arteriotomy. This was extended proximally and distally with Campoverde scissors. We flushed the distal artery with heparinized saline which
flushed easily. The graft was pressurized, shortened and beveled for the anastomosis. We sewed an end-to-side anastomosis to the tibioperoneal trunk using a running 6-0 Prolene suture. Prior to the completion of the anastomosis we forward flushed
the graft and irrigated under the arboleda with heparinized saline. The anastomosis was completed and we removed the proximal clamp on the graft as well as the vessel loops on the tibioperoneal trunk. Immediately there was a palpable pulse in the distal
artery. The suture line was closely inspected for hemostasis which was achieved.
Completion angiogram was performed. The proximal and distal anastomoses were widely patent with no stenosis. The common femoral artery endarterectomy was patent. The profunda femoral artery was patent with brisk outflow. The tibioperoneal trunk
and peroneal artery outflow was brisk. The peroneal artery was patent to the ankle with no stenosis identified. The peroneal artery reconstituted the dorsalis pedis artery in the foot. The posterior tibial artery was occluded. The anterior tibial
artery demonstrated segmental reconstitution along its length.
All suture lines were closely inspected and hemostasis achieved. Hemostasis was achieved in the wound beds. The wounds were irrigated with warm saline.
The incisions were closed in multiple layers and sterile MONSTER dressings applied.
The patient was extubated and brought to the PACU in stable condition after tolerating the procedure quite well.
Attestation: I was present and responsible for the entire procedure
Signed:
Bryan Daley III, MD
Vascular Surgery
[facility]
--- NOTE | 2024-08-18 17:07 | PTCARENOTE ---
pt received from PACU, oriented, on bedrest. SR on the monitor, HR 70-80s. SBP 90-100s, Epinephrine gtt running as ordered. Doppler pedal pulses, neurovascular checks completed as ordered. 6LNC, 100% POX. pt abdomen s/n, denies n/v. tolerating sips
of water. Daley in place, clear yellow urine. R groin and RLE MONSTER dressings intact, blinking green. sites tender, but pt denies pain otherwise. PIV. IVF running as ordered. R radial [place] flushed, zeroed, and calibrated. admission interview
completed. see worklist for VS, I&O, and assessment.
[2024-08-18] MEDS: LIPITOR 40 MG PO (17:15)
[2024-08-18] MEDS: NICODERM TRANSDERMAL 14 MG TRANSDERM (17:15)
[2024-08-18] MEDS: HEPARIN 25000 UNITS/250 ML IV (17:19)
[2024-08-18 17:29] LABS: APTT 58.9 Sec (23.4-35.0)
[2024-08-18] MEDS: ORETIC PO (19:23)
[2024-08-18] MEDS: DITROPAN 2.5 MG PO (20:11)
--- NOTE | 2024-08-18 21:00 | PTCARENOTE ---
Assumed care of pt from daysfiorella RN. Walking rounds completed. Pt is AAOx3. SR w/ BBB and 1st degree HB on the tele monitor. HR 80s. BP 80-100s/50s. Epi infusing as ordered. B/L DP pulses present via Doppler. B/L radial pulses palpable. No edema. Pt
on 4 L NC. POX 98-99%. Lung sounds diminished throughout. Deep breathing and IS encouraged. Abdomen soft/nontender. +BS. No nausea. Daley catheter intact and draining yellow urine. Right groin and right LE MONSTER dressings intact. Old drainage noted
on the RLE MONSTER dressing. Neurovascular checks completed as ordered on B/L LE - see worklist. Heparin and IV fluids infusing. Right radial arterial line leveled, zeroed, and flushed. Hydrochlorothiazide and Coreg held while pt on Epi drip -
confirmed with CTPA. See worklsit for full nursing assessment and interventions. Pt repositioned in bed. Call puente within reach.
[2024-08-19] VITALS (35 sets, daily range): BP systolic 71–150; BP diastolic 44–91; BMI 29.7
--- NOTE | 2024-08-19 00:35 | PTCARENOTE ---
Pt reassessed. Increased ectopy on the tele monitor. CTPA aware - EKG and BMP ordered. EKG showed SR w/ 1st degree, left bundle, and PVCs. HR 80s. BP 90-110s/50s. Epi infusing as ordered. B/L LE DP pulses present via doppler. See worklist for full
B/L LE neurovascular checks. Right LE and right groin MONSTER drains intact. Right LE MONSTER drain dressing w/ some drainage - MONSTER drain blinking green. Vascular surgery contacted via TT and CTPA aware. Pt is 95-99% on 4 L NC. Daley catheter intact and
draining yellow urine. Heparin and saline infusing as ordered. Call puente within reach.
[2024-08-19 00:52] LABS: APTT 188.4 Sec (23.4-35.0)
[2024-08-19 01:16] LABS: Blood Urea Nitrogen 35 mg/dl (9-20); Calcium 8.7 mg/dl (8.4-10.2); Carbon Dioxide 23 mmol/L (22-30); Chloride 111 mmol/L (98-107); Estimated Creatinine Clearance 48 ml/min; Glucose 165 mg/dl (70-99); Magnesium 1.9 mg/dl (1.6-2.3); Potassium 4.7 mmol/L (3.5-5.1); Sodium 140 mmol/L (135-145); eGFR 56.93
[2024-08-19] MEDS: NSS 1000 IV (03:53)
[2024-08-19 04:05] LABS: INR 1.12; PT 14.8 Sec (11.4-14.6)
[2024-08-19 04:06] LABS: Hematocrit 33.8 % (39.0-52.0); Hemoglobin 11.1 g/dL (13.0-18.0); Mean Corp Hgb Conc. 32.8 g/dL (33.0-37.0); Mean Corpuscular Hgb 30.2 pg (27.0-31.0); Mean Corpuscular Volume 91.8 fL (80.0-94.0); Mean Platelet Volume 10.2 fL (7.4-10.4); Platelet Count 146 10^3/uL (130-400); Red Blood Cell Count 3.68 10^6/uL (4.70-6.10); Red Cell Dist. Width 15.1 % (11.5-14.5); White Blood Cell Count 16.1 10^3/uL (4.8-10.8)
--- NOTE | 2024-08-19 04:15 | PTCARENOTE ---
Pt reassessed. SR w/ left BBB, 1st degree HB, and PVCs on the tele monitor. HR 80-90s. BP 90-110s/40-50s. Epi infusing as ordered. Pulses unchanged. See worklist for full LE neurovascular checks. Right LE and groin MONSTER drains intact. Right groin
tender to touch. No hematoma. Bloody drainage on right LE MONSTER drain - vascular aware. Daley catheter intact and draining yellow urine. Heparin and saline infusing. Labs drawn and sent. Pt repositioned in bed. Call puente within reach.
[2024-08-19 04:42] LABS: Blood Urea Nitrogen 34 mg/dl (9-20); Calcium 8.7 mg/dl (8.4-10.2); Carbon Dioxide 26 mmol/L (22-30); Chloride 110 mmol/L (98-107); Estimated Creatinine Clearance 45 ml/min; Glucose 133 mg/dl (70-99); Potassium 4.4 mmol/L (3.5-5.1); Sodium 141 mmol/L (135-145); eGFR 56.93
--- NOTE | 2024-08-19 07:08 | CON.INTV ---
Consultation
Consultation Request
Date/Time Consultation Requested: 08/18/2024
Date/Time Consultation Performed: 08/19/2024
Requesting Provider: Bryan Daley III
Performing Provider: Maren Dacosta
Reason for Consultation: Limb ischemia
Medical History
-
Chief Complaint: Limb pain and ischemia
History of Present Illness:
Patient is a very pleasant 78-year-old gentleman with known history of severe peripheral vascular disease. He was being followed by vascular surgery service for right lower extremity chronic ischemia and limb pain. As part of workup he had an
abnormal stress test which was followed by a coronary angiogram which showed coronary artery disease. This was treated with a drug-eluting stent in RCA last month. After a brief. Patient was brought back to the hospital for elective
revascularization for right lower extremity ischemia, chronic limb pain. Postsurgery patient was admitted to cardiovascular ICU. Teacher Private consult was requested for further input.
Past Medical History
Past Medical History: Reports Other
Additional Past Medical History:
Peripheral Artery Disease
Essential Hypertension
Hyperlipidemia
COPD
BPH
GERD
Past Surgical History: Reports Other
Additional Past Surgical History:
Right Carotid Endarterectomy
Endovascular AAA Repair
Cholecystectomy
Social History
Tobacco: Smoker (1 PPD)
Alcohol: None
Family History
Family History: Not pertinent
Allergies / Home Medications
Allergies / Home Medications
Allergies
Allergy/AdvReac Type Severity Reaction Status Date / Time
No Known Allergies Allergy Verified 08/10/24 13:10
Home Medications
�Medication �Instructions �Recorded �Confirmed �Last Taken �Type
aspirin 81 mg tablet,delayed 81 mg PO DAILY Blood Clot 02/01/15 08/18/24 08/17/24 08:00 History
release (Ecotrin Low Strength) Prevention/Tx
finasteride 5 mg tablet 5 mg PO DAILY bph 02/01/15 08/18/24 08/17/24 08:00 History
amlodipine 5 mg tablet 5 mg PO DAILY Blood Pressure 03/12/18 08/18/24 08/17/24 08:00 History
atorvastatin 40 mg tablet 40 mg PO QPM High Cholesterol 07/13/24 08/18/24 08/17/24 20:00 History
hydrochlorothiazide 25 mg tablet 25 mg PO QPM Blood Pressure 07/13/24 08/18/24 08/17/24 08:00 History
oxybutynin chloride 5 mg 5 mg PO DAILY Urinary Issue 07/13/24 08/18/24 08/17/24 08:00 History
tablet,extended release 24 hr
carvedilol 3.125 mg tablet 3.125 mg PO BID Blood pressure 90 07/21/24 08/18/24 08/17/24 20:00 Rx
days #180 tabs
clopidogrel 75 mg tablet 75 mg PO DAILY Antiplatelet 90 07/21/24 08/18/24 08/17/24 08:00 Rx
days #90 tabs
dapagliflozin propanediol 10 mg 10 mg PO DAILY Heart Failure 90 07/21/24 08/18/24 08/17/24 08:00 Rx
tablet days #90 tabs
lisinopril 20 mg tablet 20 mg PO DAILY Blood pressure 90 07/21/24 08/18/24 08/17/24 08:00 Rx
days #90 tabs
pantoprazole 40 mg tablet,delayed 40 mg PO DAILY 08/10/24 08/18/24 08/17/24 08:00 History
release
apixaban 5 mg tablet (Eliquis) 5 mg PO BID 08/18/24 08/18/24 08/17/24 20:00 History
Review of Systems
-
Hematologic/Lymphatic: Other (All 14 systems reviewed and negative except as stated above in the history of present illness.)
Vitals / Labs / Diagnostic Testing
Vital Signs
Temp Pulse Resp BP Pulse Ox
98.1 F 79 15 98/59 100
08/18/24 16:35 08/18/24 17:00 08/18/24 17:00 08/18/24 17:00 08/18/24 17:00
Lab Data
08/18/24 14:31
08/18/24 14:31
Laboratory Results
08/18/24 08/18/24
14:31 17:09
APTT > 200 H* 58.9 H
Diagnostic Testing:
Physical Exam
-
HEENT: Normocephalic
Cardiovascular: S1/S2
Respiratory: Clear and Other (AP diameter increased, expiration prolonged.)
GI: Soft and Non Distended
Neurology: Awake and Alert
General: Comfortable
Assessment
-
Patient is 78-year-old gentleman with longstanding history of smoking and severe peripheral vascular disease with critical limb ischemia, s/p - 1. Reoperative right groin surgery
2. Endovascular exclusion of right common iliac artery aneurysm (overlapping Endologix Ovation stents 12 mm x 160 mm; 12 mm x 140 mm)
3. Coil embolization of right internal iliac artery (7 mm, 9 mm, 12 mm Concerto detachable coils)
4. Right common femoral artery endarterectomy with patch angioplasty using bovine pericardium
5. Right common femoral artery to tibioperoneal trunk bypass using 6 mm ring reinforced PTFE
6. Completion arteriogram, right lower extremity by vascular surgery service
:POD #1
Continue observation following procedure
Follow neurovascular checks per protocol
ASA, Plavix, statins and Heparin infusion
Follow BP monitoring and parameters as set by primary team
Cardiac history noted
Monitor on telemetry
Pain control per protocol
RASS goal 0
No prior history of pulmonary disease, smoking hx includes
CXR reviewed indicating no acute disease
No prior PFTs for review
Encouraged IS
Diet advancement per protocol
Aspiration precautions
Creat at baseline, follow UO
Critical I/Os
Void trials
BMP normal this AM.
No signs/symptoms suspicious for infectious etiology at this time
Will observe off antibiotics for now
Follow temperatures/CBC. WBC went up to 16.1, Hb stable
Hb and platelets postoperatively stable
DVT prophylaxis: Currently on heparin infusion
Encouraged OOB/PT/OT/ambulation once cleared by surgical team
Other medical diagnoses:
-COPD with ongoing smoking. Patient reports taking Spiriva and as needed butyryl at home. Declines inhaler therapy in hospital, continue as needed albuterol. Patient declines outpatient follow-up with pulmonary clinic. If he changes his mind, we
will be happy to see him as outpatient for ongoing management of underlying COPD.
-GERD. On Pantoproazole
-CAD, s/p PCI of RCA in 07/2024. on ASA, Plavix, Atorvastatin and Coreg.
-Ischemic cardiomyopathy, LVEF 15-20%. in Lisinopril 20 mg and HCTZ. Also on Farxiga.
-AAA repair with endograft
-Carotid artery disease, s/p CEA. DAPT and Statins
-HTN and HLD
Critical Care time 56 mins -- The patient is admitted for acute critical illness for the treatment of vital organ failure and/or prevention of further life-threatening conditions. Total care includes time spent in review of history, physical exam,
medications, hemodynamic/ventilator parameters, laboratory data, imaging and discussion with house staff, pharmacy, respiratory therapy, materials associate, and nursing.
Data:
CXR 07/2024: The lungs appear clear. Cardiac silhouette size is enlarged with no evidence for pulmonary edema or pleural effusion.
Cardiac Cath 07/2024: 1. Successful stenting of the mid right coronary artery with placement of a 2.75 x 26 mm [place] stent that was postdilated to high pressures with a 3.5 mm noncompliant balloon
2. Mildly elevated left ventricular filling pressures
ECHO 07/2024: 1. Left ventricle is mildly dilated. Severely reduced left ventricular systolic
function. Left ventricular ejection fraction is 15-20% by visual estimation.
Global hypokinesis with regional variations. Mild concentric left ventricular
hypertrophy. Stage I diastolic dysfunction suggestive of abnormal relaxation.
2. Normal right ventricular size and function.
3. Mild to moderate mitral regurgitation.
4. No pericardial effusion.
5. Asc Ao Diameter 4.3cm
CT Chest 2016: Multiple 2 mm pulmonary nodules.
--- NOTE | 2024-08-19 07:41 | PTCARENOTE ---
Assumed care of patient from sludge filtration attendant RN. AAO x 3 Sitting in the bed. C/o tenderness in Rt groin /leg. Huang dressings unchanged from prior. DP pulses audible by doppler bilaterally. Epi drip at 2 on handoff, heparin drip maintained. SR 1
degree AVB w/ BBB on monitor. Room air 95%. Daley draining clear yellow urine. Plan discussed during rounds with vascular team.
--- NOTE | 2024-08-19 07:51 | W.PN.VS ---
Addendum entered and electronically signed by Shemar Garcia MD 08/19/24 08:30:
Seen and examined with BETHEL Lee. Agree with findings as noted below. Right groin and below the knee dressings clean dry and intact. No hematomas noted. Foot is warm. Excellent dopplerable signals. Plan/as discussed and noted below.
Original Note:
Today's Communication / Plan
-
Patient seen and examined at bedside with Dr. Shemar Garcia, below plan reviewed with attending.
Assessment/Plan
-
Assessment: 78-year-old male POD #1 Reoperative right groin surgery, endovascular exclusion of right common iliac artery aneurysm (overlapping Endologix Ovation stents 12 mm x 160 mm; 12 mm x 140 mm), coil embolization of right internal iliac artery
(7 mm, 9 mm, 12 mm Concerto detachable coils), right common femoral artery endarterectomy with patch angioplasty using bovine pericardium, right common femoral artery to tibioperoneal trunk bypass using 6 mm ring reinforced PTFE, completion
arteriogram, right lower extremity
Plan:
Discontinue arterial line once epinephrine infusion is weaned off
OOB to chair
Discontinue Daley catheter
Discontinue IV fluid
Continue heparin infusion for anticoagulation
Smoking cessation education
Continue encourage incentive spirometry
Given labile blood pressure will hold a.m. antihypertensive medications
Subjective Data
-
Date of Service: August 19, 2024
Patient seen and examined at bedside, reports vast improvement to right foot pain. Denies nausea, vomiting, fever, and chills.
Objective Data
-
Vital Signs
Temp Pulse Resp BP Pulse Ox
98.5 F 96 19 93/60 95
08/19/24 07:30 08/19/24 07:30 08/19/24 07:30 08/19/24 07:00 08/19/24 07:30
Intake and Output
08/18/24 08/19/24 08/20/24
06:59 06:59 06:59
Intake Total 1689.0 / 1689.0 100.5 / 100.5
Output Total 1185 / 1185
Balance 504.0 / 504.0 100.5 / 100.5
Intake:
IV fluids (Total) 1689.0 / 1689.0 100.5 / 100.5
EPI 109.0 / 109.0 7.5 / 7.5
Heparin 180 / 180 13 / 13
IVF 1200 / 1200 80 / 80
Normosol 200 / 200
Output:
Urine, Daley 1185 / 1185
Lab Results
08/19/24 03:47
08/19/24 03:47
Calcium 8.7 mg/dl (8.4-10.2) 08/19/24 03:47
Magnesium 1.9 mg/dl (1.6-2.3) 08/19/24 00:21
Physical Exam
-
No apparent distress, resting in bed comfortably
No tachycardia
No dyspnea on room air
ABD nontender, nondistended
Right groin dressing dry and intact, no evidence of hematoma
Right distal calf dressing dry and intact, no evidence of hematoma
Right DP and PT pulse by Doppler, right foot warm
Daley draining clear yellow urine
[2024-08-19] MEDS: ZESTRIL PO (07:53)
[2024-08-19] MEDS: NORVASC PO (07:53)
[2024-08-19] MEDS: NICODERM TRANSDERMAL 14 MG TRANSDERM (08:22)
[2024-08-19] MEDS: DITROPAN 2.5 MG PO ×2 (08:22→20:07)
[2024-08-19] MEDS: FARXIGA 10 MG PO (08:23)
[2024-08-19] MEDS: PROTONIX 40 MG PO (08:23)
[2024-08-19] MEDS: ASPIR LOW (ENTERIC COATED) 81 MG PO (08:23)
[2024-08-19] MEDS: PLAVIX 75 MG PO (08:23)
[2024-08-19] MEDS: PROSCAR 5 MG PO (08:23)
[2024-08-19 08:45] LABS: APTT 129.4 Sec (23.4-35.0)
--- NOTE | 2024-08-19 08:46 | PTCARENOTE ---
Epi drip weaned off as per protocol. VSS. Daley cath removed, and urinal provided. IVF discontinued. RT radial a line removed. hemostasis achieved. Pt tolerated.
--- NOTE | 2024-08-19 09:41 | PTCARENOTE ---
Assist x 2 oob to chair using rolling walker. Pt stiff and sore but able to take a few steps. BP dropped initially once sitting, pt symptomatic with dizziness, feet elevated and bp returned to 87/63(69). Will monitor.
--- NOTE | 2024-08-19 10:18 | PTCARENOTE ---
Pt restless in chair, states he doesnt feel well, attempt to stand to get back to bed, however, pt having ss hypotension, assist x 3 back to bed. BP 97/52(67). dizziness resolved laying down. Resting after.
--- NOTE | 2024-08-19 10:49 | CM ---
CM following for DC planning needs.
Met w/ patient to complete initial assessment.
Pt. resides w/ spouse in a private, 2 STH w/ 3STE. Pt. 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 Pt. reports that spouse is undergoing radiation therapy for Pancreatic CA.
Pt. has RX plan and uses [facility] for prescription needs.
Pt. does not anticipate any needs at DC.
CM to follow closely for any needs that may arise.
--- NOTE | 2024-08-19 12:15 | PTCARENOTE ---
depressed afffect, states hes unsure why he did this to himself. Emotional support provided. Pulses remain via doppler, neuro check unchanged. VSS.
[2024-08-19] MEDS: HEPARIN 25000 UNITS/250 ML IV (13:31)
--- NOTE | 2024-08-19 14:25 | PTCARENOTE ---
Second attempt made to transfer pt oob to chair. Pt dizzy upon sitting on side of bed but cleared and able to step over to chair with rolling walker. However upon sitting, pt became suddenly quiet, not responding to verbal. BP 81 systolic. Pt
laid flat and transferred back to bed, bp 150/91 after.
[2024-08-19 14:59] LABS: Troponin I < 0.012 ng/ml
[2024-08-19] MEDS: LIPITOR 40 MG PO (17:15)
[2024-08-19] MEDS: ORETIC PO (17:16)
--- NOTE | 2024-08-19 18:23 | PTCARENOTE ---
Requesting to go into bathroom for bm. Pt informed he was only allowed to use bsc d/t his recent low bps. Pt very resistant to using bsc but ultimately agreed. Able to have a small formed Bm, and a lot of flatus. VSS, no dizziness or
hypotension this time
--- NOTE | 2024-08-19 20:00 | PTCARENOTE ---
Assumed care of the patient at 1900. Patient in bed, T[place]K, AOx3, pleasant. Lungs diminished, occ cough, on RA, barrel chest. Normoactive BS, no nausea, tolerating PO. Voiding into the urinal. Skin grossly intact, scattered ecchymosis, MONSTER dressing
on R groin and R medial leg with sanguinous drainage. CVPA aware. Call puente in reach, patient updated on POC.
[2024-08-19 22:08] LABS: APTT 120.4 Sec (23.4-35.0)
[2024-08-19 22:19] LABS: Troponin I < 0.012 ng/ml
[2024-08-19] MEDS: MELATONIN 5 MG PO (22:41)
[2024-08-20] VITALS (49 sets, daily range): BP systolic 74–128; BP diastolic 49–98; PULSE 97; BMI 31.1
--- NOTE | 2024-08-20 | PTCARENOTE ---
No acute changes, patient given melatonin, resting in bed, assessment of needs ongoing
--- NOTE | 2024-08-20 04:00 | PTCARENOTE ---
Patient with more PVCs on the monitor. Asymptomatic. Assessment of needs ongoing.
[2024-08-20 05:13] LABS: Hematocrit 30.6 % (39.0-52.0); Hemoglobin 10.1 g/dL (13.0-18.0); Mean Corpuscular Volume 90.8 fL (80.0-94.0); Mean Platelet Volume 10.8 fL (7.4-10.4); Platelet Count 102 10^3/uL (130-400); Red Blood Cell Count 3.37 10^6/uL (4.70-6.10); Red Cell Dist. Width 15.4 % (11.5-14.5); White Blood Cell Count 12.5 10^3/uL (4.8-10.8)
[2024-08-20 05:23] LABS: APTT 105.2 Sec (23.4-35.0)
--- NOTE | 2024-08-20 07:28 | W.PN.INTV ---
Today's Communication / Plan
Recommendations
- Hold lisinopril and hydrochlorothiazide
- Continue to monitor renal function and hemoglobin closely
- Incentive spirometry
Assessment
-
Patient is 78-year-old gentleman with longstanding history of smoking and severe peripheral vascular disease with critical limb ischemia, s/p - 1. Reoperative right groin surgery
2. Endovascular exclusion of right common iliac artery aneurysm (overlapping Endologix Ovation stents 12 mm x 160 mm; 12 mm x 140 mm)
3. Coil embolization of right internal iliac artery (7 mm, 9 mm, 12 mm Concerto detachable coils)
4. Right common femoral artery endarterectomy with patch angioplasty using bovine pericardium
5. Right common femoral artery to tibioperoneal trunk bypass using 6 mm ring reinforced PTFE
6. Completion arteriogram, right lower extremity by vascular surgery service
:POD #2
Continue observation following procedure
Follow neurovascular checks per protocol
ASA, Plavix, statins and Heparin infusion on going. Right lower extremity dressing soaked, planned for change.
Follow BP monitoring and parameters as set by primary team. BP has been soft, holding blood pressure medications.
Cardiac history noted
Monitor on telemetry
Pain control per protocol
RASS goal 0
CXR reviewed indicating no acute disease
No prior PFTs for review
Encouraged IS
Diet advancement per protocol
Aspiration precautions
Creat at baseline, follow UO
Critical I/Os
Void trials
BMP normal this AM.
No signs/symptoms suspicious for infectious etiology at this time
Will observe off antibiotics for now
Follow temperatures/CBC. WBC down to 12.5. Slow drift in HB, 10.1 today
Hb and platelets postoperatively stable
DVT prophylaxis: Currently on heparin infusion
Encouraged OOB/PT/OT/ambulation once cleared by surgical team
Other medical diagnoses:
-COPD with ongoing smoking. Patient reports taking Spiriva and as needed butyryl at home. Declines inhaler therapy in hospital, continue as needed albuterol. Patient declines outpatient follow-up with pulmonary clinic. If he changes his mind, we
will be happy to see him as outpatient for ongoing management of underlying COPD.
-GERD. On Pantoproazole
-CAD, s/p PCI of RCA in 07/2024. on ASA, Plavix, Atorvastatin and Coreg.
-Ischemic cardiomyopathy, LVEF 15-20%. Nn Lisinopril 20 mg and HCTZ (hold). Also on Farxiga.
-AAA repair with endograft
-Carotid artery disease, s/p CEA. DAPT and Statins
-HTN and HLD
-CKD stage III. Stable Cr. Hold Lisinopril and HCTZ in view of borderline low blood pressure, to decrease risk of RAISA
Critical Care time 42 mins -- The patient is admitted for acute critical illness for the treatment of vital organ failure and/or prevention of further life-threatening conditions. Total care includes time spent in review of history, physical exam,
medications, hemodynamic/ventilator parameters, laboratory data, imaging and discussion with house staff, pharmacy, respiratory therapy, expediter clerk, and nursing.
Data:
CXR 07/2024: The lungs appear clear. Cardiac silhouette size is enlarged with no evidence for pulmonary edema or pleural effusion.
Cardiac Cath 07/2024: 1. Successful stenting of the mid right coronary artery with placement of a 2.75 x 26 mm [place] stent that was postdilated to high pressures with a 3.5 mm noncompliant balloon
2. Mildly elevated left ventricular filling pressures
ECHO 07/2024: 1. Left ventricle is mildly dilated. Severely reduced left ventricular systolic
function. Left ventricular ejection fraction is 15-20% by visual estimation.
Global hypokinesis with regional variations. Mild concentric left ventricular
hypertrophy. Stage I diastolic dysfunction suggestive of abnormal relaxation.
2. Normal right ventricular size and function.
3. Mild to moderate mitral regurgitation.
4. No pericardial effusion.
5. Asc Ao Diameter 4.3cm
CT Chest 2016: Multiple 2 mm pulmonary nodules.
Subjective Dataa
Subjective Data
Date of Service:
Date of Service: August 20, 2024
Subjective:
Patient comfortably lying in bed. Right lower extremity dressing peers to be soaked.
Review of Systems
Genitourinary: Other (No new symptoms reported.)
Objective Data
Data Reviewed
Vital Signs / I&O / Oxygen:
Vital Signs
Temp Pulse Resp BP Pulse Ox
98.2 F 101 23 99/67 93
08/20/24 04:00 08/20/24 07:00 08/20/24 07:00 08/20/24 07:00 08/20/24 07:00
Intake and Output
08/19/24 08/20/24 08/21/24
06:59 06:59 06:59
Intake Total 1689.0 / 1689.0 1020.5 / 1020.5
Output Total 1185 / 1185 1210 / 1210
Balance 504.0 / 504.0 -189.5 / -189.5
SaO2 93
Nasal Cannula flow liters per 4
minute
Physical Exam
HEENT: Normocephalic
Cardiovascular: S1-S2 and Regular Rhythm
Respiratory: Clear
GI: Soft and Non Distended
Neurology: Awake and Alert
Skin: Warm
Labs/Micro/Reports
Lab Data
08/20/24 04:58
Laboratory Results
08/19/24 08/19/24 08/19/24
08:18 14:09 21:47
APTT 129.4 H 56.0 H 120.4 H
08/20/24
04:58
APTT 105.2 H
--- NOTE | 2024-08-20 08:00 | PTCARENOTE ---
Assumed care of patient. Walking rounds completed with previous RN. Pt assessed while he was lying in bed. Pt alert and oriented x4. Weakness to b/l lower extremities. Right leg is weaker than the left, pt denies difference in movement from previous
shift. Pt c/o numbness to b/l lower extremities. Rates right groin pain 1/10 upon palpation, see MAR. ST with frequent PVCs on tele with rates in the 100s. BP 97/65. Bilateral radial pulses palpable. Bilateral DPPT pulses present via doppler. No
edema noted. POX 95% on RA. Lungs diminished in the bases. Occasional nonproductive cough. IS encouraged-2500mL achieved. Abdomen soft, round, nontender. +BS BM yesterday. Pt tolerating diet. Denies nausea. Pt voiding clear yellow urine in the
urinal. Right groin incision covered with MONSTER dressing, mod amount of old drainage noted. Right lower leg incision covered with saturated MONSTER, vascular surgery team at bedside and changed dressing. Right forearm and Right AC PIVs intact. Heparin
gtt infusing at 1200units/hour. See MAR for medication administration. See worklist for complete nursing assessment. Plan of care reviewed and patient is reluctant but in agreement. States concerns for how he will get OOB since his 'leg don't work'.
PT/OT consulted.
[2024-08-20] MEDS: HEPARIN 25000 UNITS/250 ML IV (08:15)
--- NOTE | 2024-08-20 08:15 | W.PN.VS ---
Today's Communication / Plan
-
Seen and assessed with Dr. Garcia
Assessment/Plan
-
Assessment: 78-year-old male POD #2 Reoperative right groin surgery, endovascular exclusion of right common iliac artery aneurysm (overlapping Endologix Ovation stents 12 mm x 160 mm; 12 mm x 140 mm), coil embolization of right internal iliac artery
(7 mm, 9 mm, 12 mm Concerto detachable coils), right common femoral artery endarterectomy with patch angioplasty using bovine pericardium, right common femoral artery to tibioperoneal trunk bypass using 6 mm ring reinforced PTFE, completion
arteriogram, right lower extremity
Plan:
OOB/ambulate
PT/OT
Repeat CBC at 11 AM
Continue heparin infusion for anticoagulation
Smoking cessation education
Continue encourage incentive spirometry
Monitor BP today
Subjective Data
-
Date of Service: August 20, 2024
Patient seen at bedside this a.m. with Dr. Garcia. Patient offers no complaints at this time. No events overnight. Patient states he was slightly lightheaded when getting out of bed yesterday. Blood pressures are on the soft side most of the day.
No other events
Objective Data
-
Vital Signs
Temp Pulse Resp BP Pulse Ox
98.2 F 101 23 99/67 93
08/20/24 04:00 08/20/24 07:00 08/20/24 07:00 08/20/24 07:00 08/20/24 07:00
Intake and Output
08/19/24 08/20/24 08/21/24
06:59 06:59 06:59
Intake Total 1689.0 / 1689.0 1020.5 / 1020.5
Output Total 1185 / 1185 1210 / 1210
Balance 504.0 / 504.0 -189.5 / -189.5
Intake:
Oral fluids 720 / 720
IV fluids (Total) 1689.0 / 1689.0 300.5 / 300.5
EPI 109.0 / 109.0 7.5 / 7.5
Heparin 180 / 180 213 / 213
IVF 1200 / 1200 80 / 80
Normosol 200 / 200
Output:
Urine, Daley 1185 / 1185
Urine, Voided 1210 / 1210
Lab Results
08/20/24 04:58
Calcium 8.7 mg/dl (8.4-10.2) 08/19/24 03:47
Magnesium 1.9 mg/dl (1.6-2.3) 08/19/24 00:21
Physical Exam
-
No apparent distress, resting in bed comfortably
No tachycardia
No dyspnea on room air
ABD nontender, nondistended
Right groin dressing dry and intact, no evidence of hematoma
Right distal calf dressing removed and replaced. Staple line well-approximated, clean, dry, intact
Right DP and PT pulse by Doppler, right foot warm
[2024-08-20] MEDS: PROTONIX 40 MG PO (08:18)
[2024-08-20] MEDS: TYLENOL 650 MG PO (08:18)
[2024-08-20] MEDS: NICODERM TRANSDERMAL 14 MG TRANSDERM (08:18)
[2024-08-20] MEDS: FARXIGA 10 MG PO (08:18)
[2024-08-20] MEDS: ASPIR LOW (ENTERIC COATED) 81 MG PO (08:19)
[2024-08-20] MEDS: DITROPAN 2.5 MG PO ×2 (08:19→19:58)
[2024-08-20] MEDS: PROSCAR 5 MG PO (08:20)
[2024-08-20] MEDS: PLAVIX 75 MG PO (08:20)
[2024-08-20] MEDS: NORVASC PO (09:05)
--- NOTE | 2024-08-20 09:13 | PN.CDI ---
CDI
- -
CDI:
Physician Documentation Request
Admit Date: 08/18/24 06:00
Dear Vascular Surgery,
Patient admitted for peripheral vascular disease.
08/18 Anesthesia: 'Input Totals- Normosol:1100 mL, NS-0.9%:600 mL...Blood Loss:300 mL'
08/20 Vascular Surgery PN: 'Patient states he was slightly lightheaded when getting out of bed yesterday. Blood pressures are on the soft side most of the day.'
Laboratory Tests
08/13/24 08/18/24 08/20/24
09:23 14:31 04:58
Hgb 13.8 12.2 L 10.1 L
Hct 41.7 36.8 L 30.6 L
Based on the above, could you clarify in the progress notes, the appropriate diagnosis, if significant, that supports the above abnormalities and additional evaluation, monitoring and/or treatment rendered:
Acute anemia multifactorial blood loss and hemodilution
Acute blood loss anemia
Hemodilution only
Other
Use of terms such as suspected, likely, concern for, or probable (associated with a specific diagnosis that is being evaluated, monitored, or treated as if it exists) are acceptable and can be coded in the inpatient setting, when documented at the
time of discharge.
Thank you,
Rachel Rubio RN, BSN
CDI Specialist
Available via [place] text
Please use your independent medical judgment in providing your response.
[2024-08-20] MEDS: ELIQUIS 5 MG PO ×2 (09:48→19:58)
--- NOTE | 2024-08-20 11:54 | CM ---
Addendum entered by DESIREE Maya 08/20/24 15:24:
Noted that PT is recommending acute rehab.
Did attempt to meet w/ patient x2 to discuss but patient was asleep.
Did refer to Nain @ . Awaiting response.
Will attempt to meet again w/ patient to review.
Original Note:
CM following for DC planning needs.
Met w/ patient at bedside. Therapists had just completed working with him.
Needs are unknown at this time. Will follow up with progress.
[2024-08-20 11:59] LABS: Blood Urea Nitrogen 36 mg/dl (9-20); Calcium 8.1 mg/dl (8.4-10.2); Carbon Dioxide 25 mmol/L (22-30); Chloride 108 mmol/L (98-107); Estimated Creatinine Clearance 48 ml/min; Glucose 130 mg/dl (70-99); Hematocrit 26.4 % (39.0-52.0); Hemoglobin 8.8 g/dL (13.0-18.0); Mean Corp Hgb Conc. 33.3 g/dL (33.0-37.0); Mean Corpuscular Volume 90.1 fL (80.0-94.0); Potassium 4.1 mmol/L (3.5-5.1); Red Blood Cell Count 2.93 10^6/uL (4.70-6.10); Red Cell Dist. Width 15.3 % (11.5-14.5); Sodium 135 mmol/L (135-145); White Blood Cell Count 11.9 10^3/uL (4.8-10.8); eGFR 52.09
--- NOTE | 2024-08-20 12:15 | PTCARENOTE ---
Pt reassessed. Assisted OOB with PT/OT and RW. Pt slightly orthostatic from lying to sitting, stood without symptoms. Ordered labs obtained. ST with BBB and frequent PVCs with rates 100s-110s. BP 113/98. POX 95% on RA. Right groin and right lower
leg MONSTER dressings unchanged. PIV x2 intact. Right leg with swelling. Pulses present via doppler. Pt states numbness feeling is unchanged from prior assessment. No other acute changes.
[2024-08-20 12:31] LABS: Mean Platelet Volume 10.4 fL (7.4-10.4); Platelet Count 86 10^3/uL (130-400)
--- NOTE | 2024-08-20 12:35 | PTCARENOTE ---
Pt assisted from chair to commode, and then assisted back to the chair. Red stool. Pt dizzy after standing, placed back in chair with head back and feet up. BP recovered. Vasc [facility] notified of repeat labs, at bedside. Notified of red stool,
hypotension.
--- NOTE | 2024-08-20 13:15 | PTCARENOTE ---
Type and screen obtained. Pt assisted back to bed with 3 assist. Pt tolerated. BP remains 90s/60s. CT scan ordered. Pt transported to CTscan with LIDAR SCIENTIST. Pt tolerated & returned to CVICU.
--- NOTE | 2024-08-20 15:00 | PTCARENOTE ---
1unit PRBC infused per orders. Pt tolerated. Pt reassessed while he was lying in bed. Remains A&Ox4 SR-ST with BBB with rates in the 90s-100s. BP 113/55. POX 100% on RA. Right leg remains swollen, khanh and MONSTER dressings in place. DPPT pulses present
via doppler. No other acute changes.
[2024-08-20] MEDS: LIPITOR 40 MG PO (18:02)
[2024-08-20 18:28] LABS: Hematocrit 29.8 % (39.0-52.0); Mean Corp Hgb Conc. 33.6 g/dL (33.0-37.0); Mean Corpuscular Hgb 30.2 pg (27.0-31.0); Mean Platelet Volume 10.4 fL (7.4-10.4); Platelet Count 97 10^3/uL (130-400); Red Blood Cell Count 3.31 10^6/uL (4.70-6.10); Red Cell Dist. Width 15.1 % (11.5-14.5); White Blood Cell Count 13.1 10^3/uL (4.8-10.8)
--- NOTE | 2024-08-20 19:27 | W.PN.UPDATE ---
Update Note
Progress Note Update
This is a late entry, obtained resulted repeat CBC at roughly noon which demonstrated further hemoglobin drop to 8.8 from 10.1, responded to bedside to evaluate patient he was resting in chair comfortably. He was awake, alert, oriented x 3. Denied
nausea, vomiting, fever, chest pain, abdominal pain, or any resting foot pain at right lower extremity. Right lower extremity with moderate edema at calf but all compartments soft and compressible, upper calf incision CDI with no evidence of
hematoma or edema. Blood pressure soft with systolic blood pressure ranging from 90-100, heart rate mildly tachycardic in the low 100s. Reviewed hemoglobin drop and patient's status with Dr. Shemar Garcia M.D., agreed to following plan initiation of
normal saline bolus, transfuse 1 unit packed red blood cells, gentle Pancho wrap to right lower extremity, and stat CT Noncon (patient has CKD) to evaluate for possible RP bleed.
Reviewed CT Noncon, which demonstrated no evidence of retroperitoneal bleed and repeat hemoglobin following transfusion at 1530 with systolic blood pressure stable in the 100s. Updated Shemar Garcia M.D. on diagnostic values, plan to continue p.o.
Eliquis. Patient will remain in ICU.
--- NOTE | 2024-08-20 20:59 | PTCARENOTE ---
assumed care of patient @ 1900. received pt laying in bed, aox3. VSS on RA. SR with BBB. Doppler pulses. B/l legs with decreased rom and sensation, R>L. Both legs have good warmth and color. Lungs clear, occasional cough on room air. belly soft,
nontender. voiding clear yellow urine in urinal. R groin MONSTER dressing CDI, R leg monster with moderate bloody drainage. both monster dressings working well with green lights. PIV patent in both arms. pt resting comfortably in bed with call puente within
reach .
--- NOTE | 2024-08-20 23:00 | PTCARENOTE ---
Assumed care of the patient at 2300. Patient in bed, AOx3; LE with decreased sensation, R>L. SR-ST w/ 1st degree AVB on the monitor, lower extremities with delayed capillary refill, doppler pedal pulses. Lungs diminished, occasional moist cough.
Abdomen SNT, tolerating meals. Voiding without difficulty using the urinal. R groin MONSTER dressing stable, old drainage; R medial knee MONSTER dressing with a small amount of drainage, stable from previously. PIVx2, patient updated on POC, in agreement,
see nursing worklist for additional intervention details.
[2024-08-21] VITALS (25 sets, daily range): BP systolic 102–147; BP diastolic 63–77; PULSE 86–98; O2SAT 96; BMI 30.3
[2024-08-21 05:19] LABS: Hematocrit 27.4 % (39.0-52.0); Hemoglobin 9.3 g/dL (13.0-18.0); Mean Corp Hgb Conc. 33.9 g/dL (33.0-37.0); Mean Corpuscular Hgb 30.5 pg (27.0-31.0); Mean Corpuscular Volume 89.8 fL (80.0-94.0); Mean Platelet Volume 10.2 fL (7.4-10.4); Platelet Count 94 10^3/uL (130-400); Red Blood Cell Count 3.05 10^6/uL (4.70-6.10); Red Cell Dist. Width 15.4 % (11.5-14.5); White Blood Cell Count 11.3 10^3/uL (4.8-10.8)
[2024-08-21 05:39] LABS: Blood Urea Nitrogen 30 mg/dl (9-20); Calcium 7.8 mg/dl (8.4-10.2); Carbon Dioxide 23 mmol/L (22-30); Chloride 113 mmol/L (98-107); Estimated Creatinine Clearance 56 ml/min; Glucose 98 mg/dl (70-99); Potassium 3.8 mmol/L (3.5-5.1); Sodium 139 mmol/L (135-145); eGFR > 60.00
--- NOTE | 2024-08-21 08:53 | W.PN.VS ---
Addendum entered and electronically signed by Bryan Daley III, MD 08/21/24 13:31:
This patient was seen and examined in collaboration with HUONG Hawkins. I agree with the history and physical exam as well as the assessment and plan.
Signed:
Bryan Daley III, MD
Vascular Surgery
[facility]
Original Note:
Today's Communication / Plan
-
Seen and assessed with Dr. Daley
Assessment/Plan
-
Assessment: 78-year-old male POD #3 Reoperative right groin surgery, endovascular exclusion of right common iliac artery aneurysm (overlapping Endologix Ovation stents 12 mm x 160 mm; 12 mm x 140 mm), coil embolization of right internal iliac artery
(7 mm, 9 mm, 12 mm Concerto detachable coils), right common femoral artery endarterectomy with patch angioplasty using bovine pericardium, right common femoral artery to tibioperoneal trunk bypass using 6 mm ring reinforced PTFE, completion
arteriogram, right lower extremity
Plan:
OOB/ambulate
PT/OT
Case management for rehab placement
Smoking cessation education
Continue encourage incentive spirometry
Restarted Coreg and hydrochlorothiazide today, monitor BP
Downgrade to telemetry
Replete calcium and potassium
Subjective Data
-
Date of Service: August 21, 2024
Patient seen at bedside same Dr. Daley. Patient offers no complaints at this time. No events overnight. Vital signs remained stable overnight
Objective Data
-
Vital Signs
Temp Pulse Resp BP Pulse Ox
99.2 F 86 18 125/70 94
08/20/24 23:57 08/21/24 06:30 08/21/24 06:30 08/21/24 06:00 08/21/24 06:30
Intake and Output
08/20/24 08/21/24 08/22/24
06:59 06:59 06:59
Intake Total 1020.5 / 1020.5 1514 / 1514
Output Total 1210 / 1210 0 / 1810
Balance -189.5 / -189.5 -296 / -296
Intake:
Oral fluids 720 / 720 240 / 240
IV fluids (Total) 300.5 / 300.5 1024 / 1024
EPI 7.5 / 7.5
Heparin 213 / 213 24 / 24
IVF 80 / 80 1000 / 1000
Blood Products 250 / 250
Packed red blood cells 250 / 250
Output:
Urine, Voided 1210 / 1210 0 / 1809
Lab Results
08/21/24 04:49
08/21/24 04:49
Calcium 7.8 mg/dl (8.4-10.2) L 08/21/24 04:49
Magnesium 1.9 mg/dl (1.6-2.3) 08/19/24 00:21
Physical Exam
-
No apparent distress, resting in bed comfortably
No tachycardia
No dyspnea on room air
ABD nontender, nondistended
Right groin dressing dry and intact, no evidence of hematoma
Right distal calf dressing clean, dry, intact, soft, flat. Staple line well-approximated, clean, dry, intact
Right DP and PT pulse by Doppler, right foot warm
Pancho bandage removed, leg soft
[2024-08-21] MEDS: ELIQUIS 5 MG PO ×2 (08:56→20:09)
[2024-08-21] MEDS: NICODERM TRANSDERMAL 14 MG TRANSDERM (08:56)
[2024-08-21] MEDS: FARXIGA 10 MG PO (08:56)
[2024-08-21] MEDS: DITROPAN 2.5 MG PO ×2 (08:56→20:08)
[2024-08-21] MEDS: PROSCAR 5 MG PO (08:57)
[2024-08-21] MEDS: PROTONIX 40 MG PO (08:57)
[2024-08-21] MEDS: PLAVIX 75 MG PO (08:57)
[2024-08-21] MEDS: ASPIR LOW (ENTERIC COATED) 81 MG PO (08:57)
[2024-08-21] MEDS: NORVASC 5 MG PO (08:57)
--- NOTE | 2024-08-21 09:00 | PTCARENOTE ---
Resumed care of patient. Pt assessed while he was lying in bed. Pt alert and oriented x4. Pt denies pain at rest, slight tenderness to right groin upon palpation. No nausea or shortness of breath. weakness with right foot/leg. States right foot/leg
is numb, no worsening from pre-op. SR with BBB and PVCs on tele with rates 90s-100s. BP 112/66. Bilateral radial pulses palpable. Bilateral DPPT pulses present via doppler. Right leg edema +1. Vasc surg team at bedside and aware. POX 96% on RA.
Lungs clear. IS encourage-2500. Occasional moist nonproductive cough noted. Abdomen soft, round, nontender. +BS. Pt voiding clear yellow urine in the urinal. Right groin MONSTER intact with small amount of old drainage. Right leg MONSTER dressing intact
with small amount of old drainage. Green lights flashing. PIV x2 intat. See MAR for medication administration. See worklist for complete nursing assessment. plan of care reviewed and pt indifferent. Continues to refuse smoking cessation education.
[2024-08-21] MEDS: CALCIUM GLUCONATE 100 IV (10:13)
[2024-08-21] MEDS: KCL ELIXIR 40 MEQ PO (10:13)
[2024-08-21] MEDS: COREG 3.125 MG PO ×2 (10:13→20:09)
--- NOTE | 2024-08-21 10:55 | CM ---
Addendum entered by DESIREE Maya 08/21/24 14:40:
Spoke w/ Pretty-patient seems appropriate for acute rehab level of care; will need to check bed availability on Saturday w/ Keiko Guzman/ liaison.
Addendum entered by DESIREE Maya 08/21/24 14:27:
Met with spouse at bedside. We reviewed plan-patient will cont. to participate in therapy hopefully over the weekend with hopes that he will progress enough to return home w/ home therapy but at this point, patient requires some assistance requiring
rehab placement. She is aware and in agreement, if necessary.
Referral has been made to [place] for bed @ [facility]. I have left x2 messages for liaison, Pretty Hoskins @ [phone] regarding acceptance; awaiting response. Requested bed for Saturday, if accepted.
Will follow.
Original Note:
CM following for DC planning needs.
Met w/ patient at bedside. Long discussion re DC plans.
Pt. is anxious to return home but acknowledges that he is weak and possibly afraid to ambulate much. We reviewed spouse's functional status; although she is undergoing radiation, he identifies her as 'strong'.
Pt. confirms that he has not utilized any DME prior to admission and was quite indep.
We discuss possible rehab placement. Pt. would consider this if only for a few days. He agreed to participate in therapy over weekend to see how he progresses.
We discussed rehab placement at [facility]. Referral made, awaiting response. Likely DC early next wk.
Will plan to meet w/ patient's spouse upon her arrival today.
--- NOTE | 2024-08-21 11:56 | W.PN.INTV ---
Addendum entered and electronically signed by Maren Dacosta MD 08/21/24 18:48:
Patient transferred out of CVICU. Substance Addiction Coordinator service will sign off, Please call as needed,
Original Note:
Today's Communication / Plan
Recommendations
- Incentive spirometry
- PRN Albuterol
- Out patient follow up with Pulmonary clinic
Assessment
-
Patient is 78-year-old gentleman with longstanding history of smoking and severe peripheral vascular disease with critical limb ischemia, s/p - 1. Reoperative right groin surgery
2. Endovascular exclusion of right common iliac artery aneurysm (overlapping Endologix Ovation stents 12 mm x 160 mm; 12 mm x 140 mm)
3. Coil embolization of right internal iliac artery (7 mm, 9 mm, 12 mm Concerto detachable coils)
4. Right common femoral artery endarterectomy with patch angioplasty using bovine pericardium
5. Right common femoral artery to tibioperoneal trunk bypass using 6 mm ring reinforced PTFE
6. Completion arteriogram, right lower extremity by vascular surgery service
:POD #3
Continue observation following procedure
Follow neurovascular checks per protocol
ASA, Plavix, statins and Eliquis PO. Right lower extremity edema, wrapped currently. Foot warm.
Follow BP monitoring and parameters as set by primary team. BP had been soft. Continue to hold Lisinopril.
Cardiac history noted
Monitor on telemetry
Pain control per protocol
RASS goal 0
CXR reviewed indicating no acute disease
Abd/CT 08/2024 reviewed: No evidence of retroperitoneal bleed. Lower lobe granulomas noted
Post surgical change of the right groin. New
Aortic aneurysms and stents as described above. Stable except for at least one, probably 2 new right common iliac artery stents.
Tiny bilateral pleural effusions. New
Severe right renal atrophy. Simple right renal cyst. Bilateral too small to characterize hypodense renal lesions likely benign cysts. Stable
Bilateral adrenal thickening versus nodules. Stable
Diverticulosis. Stable
No prior PFTs for review
Encouraged IS
Diet advancement per protocol
Aspiration precautions
Creat at baseline, follow UO
Critical I/Os
Void trials
BMP normal this AM.
No signs/symptoms suspicious for infectious etiology at this time
Will observe off antibiotics for now
Follow temperatures/CBC. WBC down to 12.5. Slow drift in HB, 10.1 today
Hb droppd needing 1 unit PRBC, mild drift noted this AM. CT negative for RP bleed.
DVT prophylaxis: Currently on Eliquis
Encouraged OOB/PT/OT/ambulation once cleared by surgical team
Other medical diagnoses:
-COPD with ongoing smoking. Patient reports taking Spiriva and as needed Albuterol at home. Declines inhaler therapy in hospital, continue as needed albuterol. Patient declines outpatient follow-up with pulmonary clinic. If he changes his mind,
we will be happy to see him as outpatient for ongoing management of underlying COPD.
-GERD. On Pantoproazole
-CAD, s/p PCI of RCA in 07/2024. on ASA, Plavix, Atorvastatin and Coreg.
-Ischemic cardiomyopathy, LVEF 15-20%. HCTZ resumed. Lisinopril on hold for now. Also on Farxiga.
-AAA repair with endograft
-Carotid artery disease, s/p CEA. DAPT and Statins
-HTN and HLD
-CKD stage III. Stable Cr. HCTZ resumed. Anticipate Lisinopril resumption in AM
-Lower lobes granuloma. Needs out patient Pulmonary follow up. Information added to the discharge section.
Critical Care time 45 mins -- The patient is admitted for acute critical illness for the treatment of vital organ failure and/or prevention of further life-threatening conditions. Total care includes time spent in review of history, physical exam,
medications, hemodynamic/ventilator parameters, laboratory data, imaging and discussion with house staff, pharmacy, respiratory therapy, hemodialysis rn, and nursing.
Data:
CXR 07/2024: The lungs appear clear. Cardiac silhouette size is enlarged with no evidence for pulmonary edema or pleural effusion.
Cardiac Cath 07/2024: 1. Successful stenting of the mid right coronary artery with placement of a 2.75 x 26 mm Alejandro stent that was postdilated to high pressures with a 3.5 mm noncompliant balloon
2. Mildly elevated left ventricular filling pressures
ECHO 07/2024: 1. Left ventricle is mildly dilated. Severely reduced left ventricular systolic
function. Left ventricular ejection fraction is 15-20% by visual estimation.
Global hypokinesis with regional variations. Mild concentric left ventricular
hypertrophy. Stage I diastolic dysfunction suggestive of abnormal relaxation.
2. Normal right ventricular size and function.
3. Mild to moderate mitral regurgitation.
4. No pericardial effusion.
5. Asc Ao Diameter 4.3cm
CT Chest 2016: Multiple 2 mm pulmonary nodules.
Subjective Dataa
Subjective Data
Date of Service:
Date of Service: August 21, 2024
Subjective:
Comfortably lying in bed, no distress
Review of Systems
Genitourinary: Other (No new symptoms reported)
Objective Data
Data Reviewed
Vital Signs / I&O / Oxygen:
Vital Signs
Temp Pulse Resp BP Pulse Ox
99.1 F 106 20 112/66 96
08/21/24 09:00 08/21/24 09:00 08/21/24 09:00 08/21/24 09:00 08/21/24 09:00
Intake and Output
08/20/24 08/21/24 08/22/24
06:59 06:59 06:59
Intake Total 1020.5 / 1020.5 1514 / 1514 240 / 240
Output Total 1210 / 1210 1810 / 1810 225 / 225
Balance -189.5 / -189.5 -296 / -296
SaO2 96
Nasal Cannula flow liters per 4
minute
Physical Exam
HEENT: Normocephalic
Cardiovascular: S1-S2, Regular Rhythm and Peripheral Edema (Right leg wrapped)
Respiratory: Clear
GI: Soft and Non Distended
Neurology: Awake and Alert
Skin: Warm
Labs/Micro/Reports
Lab Data
08/21/24 04:49
08/21/24 04:49
Laboratory Results
08/20/24
15:25
APTT Cancelled
--- NOTE | 2024-08-21 12:00 | PTCARENOTE ---
Pt reassessed. Pt OOB to chair with OT. Pt tolerated. Denies lightheadedness/dizziness. BP 114/74. POX 96%. SR-ST with PVCs. Right leg swelling and dressings unchanged. Pulses present via doppler. Pt refusing lunch.
--- NOTE | 2024-08-21 17:00 | PTCARENOTE ---
Pt reassessed. SR-ST PVCs with rates in the 90s. bP 105/71. POX 97% on RA. Surgical sites unchanged, pulses present by doppler. Pt sitting up in the chair. no acute changes.
[2024-08-21] MEDS: NICORETTE 2 MG PO (18:14)
[2024-08-21] MEDS: ORETIC 25 MG PO (18:14)
[2024-08-21] MEDS: LIPITOR 40 MG PO (18:14)
--- NOTE | 2024-08-21 20:00 | PTCARENOTE ---
assumed care of patient @ 1900. received pt laying in bed, aox3. VSS on RA. SR with BBB. Doppler pulses. B/l legs with decreased rom and sensation, R>L. Both legs have good warmth and color. Lungs clear, occasional cough on room air. belly soft,
nontender. voiding clear yellow urine in urinal. R groin MONSTER dressing with small old drainage, R leg monster with moderate bloody drainage. both monster dressings working well with green lights. PIV patent in both arms. pt resting comfortably in bed with
call puente within reach .
[2024-08-22] VITALS (14 sets, daily range): BP systolic 69–124; BP diastolic 47–68; BMI 30.3
--- NOTE | 2024-08-22 02:49 | PTCARENOTE ---
pt w 5 beat run of VT while sleeping, BP stable, CTPA notified.
[2024-08-22 03:49] LABS: Hematocrit 26.6 % (39.0-52.0); Hemoglobin 8.8 g/dL (13.0-18.0); Mean Corp Hgb Conc. 33.1 g/dL (33.0-37.0); Mean Corpuscular Hgb 30.2 pg (27.0-31.0); Mean Corpuscular Volume 91.4 fL (80.0-94.0); Mean Platelet Volume 10.5 fL (7.4-10.4); Platelet Count 96 10^3/uL (130-400); Red Blood Cell Count 2.91 10^6/uL (4.70-6.10); Red Cell Dist. Width 15.3 % (11.5-14.5); White Blood Cell Count 11.1 10^3/uL (4.8-10.8)
[2024-08-22 04:14] LABS: Blood Urea Nitrogen 31 mg/dl (9-20); Calcium 8.4 mg/dl (8.4-10.2); Carbon Dioxide 25 mmol/L (22-30); Chloride 110 mmol/L (98-107); Estimated Creatinine Clearance 55 ml/min; Glucose 96 mg/dl (70-99); Magnesium 1.8 mg/dl (1.6-2.3); Potassium 4.4 mmol/L (3.5-5.1); Sodium 139 mmol/L (135-145); eGFR > 60.00
[2024-08-22] MEDS: MAGNESIUM SULFATE 102 GRAMS IV (05:06)
--- NOTE | 2024-08-22 06:56 | W.PN.VS ---
Today's Communication / Plan
-
increase activity
Assessment/Plan
-
Assessment: 78-year-old male POD #4 Reoperative right groin surgery, endovascular exclusion of right common iliac artery aneurysm (overlapping Endologix Ovation stents 12 mm x 160 mm; 12 mm x 140 mm), coil embolization of right internal iliac artery
(7 mm, 9 mm, 12 mm Concerto detachable coils), right common femoral artery endarterectomy with patch angioplasty using bovine pericardium, right common femoral artery to tibioperoneal trunk bypass using 6 mm ring reinforced PTFE, completion
arteriogram, right lower extremity
Plan:
OOB/ambulate
PT/OT
Case management for rehab placement
Smoking cessation education
Continue encourage incentive spirometry
Restarted Coreg and hydrochlorothiazide today, monitor BP
increase activity
Subjective Data
-
Date of Service: August 22, 2024
Doing well
pain controlled
Objective Data
-
Vital Signs
Temp Pulse Resp BP Pulse Ox
98.4 F 76 16 117/62 96
08/22/24 03:55 08/22/24 03:30 08/22/24 03:55 08/22/24 02:51 08/22/24 03:55
Intake and Output
08/20/24 08/21/24 08/22/24
06:59 06:59 06:59
Intake Total 1020.5 / 1020.5 1514 / 1514 1060 / 1060
Output Total 1210 / 1210 1810 / 1810 1125 / 1125
Balance -189.5 / -189.5 -296 / -296 -65 / -65
Intake:
Oral fluids 720 / 720 240 / 240 960 / 960
IV fluids (Total) 300.5 / 300.5 1024 / 1024
EPI 7.5 / 7.5
Heparin 213 / 213 24 / 24
IVF 80 / 80 1000 / 1000
IV piggybacks 100 / 100
Blood Products 250 / 250
Packed red blood cells 250 / 250
Output:
Urine, Voided 1210 / 1210 1810 / 1810 1125 / 1125
Lab Results
08/22/24 03:31
08/22/24 03:31
Calcium 8.4 mg/dl (8.4-10.2) 08/22/24 03:31
Magnesium 1.8 mg/dl (1.6-2.3) 08/22/24 03:31
Physical Exam
-
dressings intact
leg soft
slight edema 1+
+ DP signal
[2024-08-22] MEDS: NICODERM TRANSDERMAL 14 MG TRANSDERM (09:01)
[2024-08-22] MEDS: ASPIR LOW (ENTERIC COATED) 81 MG PO (09:03)
[2024-08-22] MEDS: PROTONIX 40 MG PO (09:03)
[2024-08-22] MEDS: FARXIGA 10 MG PO (09:04)
[2024-08-22] MEDS: PROSCAR 5 MG PO (09:04)
[2024-08-22] MEDS: ELIQUIS 5 MG PO ×2 (09:04→20:22)
[2024-08-22] MEDS: DITROPAN 2.5 MG PO ×2 (09:04→20:21)
[2024-08-22] MEDS: NORVASC 5 MG PO (09:05)
[2024-08-22] MEDS: COREG 3.125 MG PO (09:05)
[2024-08-22] MEDS: ZESTRIL 20 MG PO (09:06)
[2024-08-22] MEDS: PLAVIX 75 MG PO (09:12)
[2024-08-22] MEDS: LIPITOR 40 MG PO (17:06)
[2024-08-22] MEDS: ORETIC PO (17:11)
--- NOTE | 2024-08-22 17:11 | PTCARENOTE ---
BP soft. checked both arms. asymptomatic. feet up and head back. 89/54 stable. will continue ot monitor.
[2024-08-22 19:47] LABS: Ionized Calcium 1.28 mMOL/L (1.15-1.33)
[2024-08-22 19:53] LABS: Hematocrit 27.6 % (39.0-52.0); Mean Corp Hgb Conc. 32.6 g/dL (33.0-37.0); Mean Corpuscular Hgb 30.1 pg (27.0-31.0); Mean Corpuscular Volume 92.3 fL (80.0-94.0); Mean Platelet Volume 10.4 fL (7.4-10.4); Platelet Count 130 10^3/uL (130-400); Red Blood Cell Count 2.99 10^6/uL (4.70-6.10); Red Cell Dist. Width 15.5 % (11.5-14.5)
--- NOTE | 2024-08-22 20:27 | W.PN.UPDATE ---
Update Note
Progress Note Update
-Pt noted to be hypotensive today with SBP as low as 69 with c/o lightheadedness/dizziness
-Checked h/h, and appears to be stable @ 9.0/27.6
-Dr. Gonzalez was notified by Nurse about low BP and recommended 500 mL NS bolus
-Placed antihypertensive meds (Coreg, Lisinopril, Norvasc, HCTZ) on hold until assessed in the AM by primary team. Of note, did not place Proscar on hold
-Will likely need antihypertensive meds adjusted
-Will cont. to closely, monitor. SBP is currently in the 90's with IV fluids infusing. Pt feels better
[2024-08-22] MEDS: NSS 500 IV (20:37)
--- NOTE | 2024-08-22 20:46 | PTCARENOTE ---
assumed care of patient @ 1900. received pt sitting in chair, Aox3. NSR on tele, BP 70s/40s on both arms. pt c/o slight dizziness. assisted pt back to bed. Vascular surgery and CTPA updated, labs drawn and sent, 500 saline bolus given with BP rising
to 90s/50s. Lungs clear on room air. voiding clear yellow urine in urinal. R leg with +2 edema, doppler pulses, warm foot with good blood flow. MONSTER dressings intact with green lights, with old bloody drainage. pt resting comfortably in bed with
call puente within reach .
[2024-08-22] MEDS: COREG PO (20:53)
[2024-08-23 04:45] VITALS: BP 107/66
[2024-08-23 06:00] VITALS: BMI 30.5
--- NOTE | 2024-08-23 06:07 | W.PN.VS ---
Today's Communication / Plan
-
follow bp
oob and ambulate
Assessment/Plan
-
Assessment: 78-year-old male POD #5 Reoperative right groin surgery, endovascular exclusion of right common iliac artery aneurysm (overlapping Endologix Ovation stents 12 mm x 160 mm; 12 mm x 140 mm), coil embolization of right internal iliac artery
(7 mm, 9 mm, 12 mm Concerto detachable coils), right common femoral artery endarterectomy with patch angioplasty using bovine pericardium, right common femoral artery to tibioperoneal trunk bypass using 6 mm ring reinforced PTFE, completion
arteriogram, right lower extremity
Plan:
OOB/ambulate
PT/OT
Case management for rehab placement
Smoking cessation education
Continue encourage incentive spirometry
BP meds held for hypotension
increase activity
Subjective Data
-
Date of Service: August 23, 2024
low bp overnight noted
better today
no complaints
Objective Data
-
Vital Signs
Temp Pulse Resp BP Pulse Ox
98.9 F 71 16 107/66 96
08/23/24 04:00 08/23/24 05:00 08/23/24 04:00 08/23/24 04:45 08/23/24 04:00
Intake and Output
08/21/24 08/22/24 08/23/24
06:59 06:59 06:59
Intake Total 1514 / 1514 1060 / 1060 480 / 480
Output Total 1810 / 1810 1125 / 1125 700 / 700
Balance -296 / -296 -65 / -65 -220 / -220
Intake:
Oral fluids 240 / 240 960 / 960 480 / 480
IV fluids (Total) 1024 / 1024
Heparin 24 / 24
IVF 1000 / 1000
IV piggybacks 100 / 100
Blood Products 250 / 250
Packed red blood cells 250 / 250
Output:
Urine, Voided 1810 / 1810 1125 / 1125 700 / 700
Other:
Number of approximated LARGE 3
amounts of urine
Lab Results
08/22/24 19:40
08/22/24 03:31
Calcium 8.4 mg/dl (8.4-10.2) 08/22/24 03:31
Magnesium 1.8 mg/dl (1.6-2.3) 08/22/24 03:31
Physical Exam
-
rrr
ctab
denies any chest paoin
+ DP signal
dressings intact
1+ edema
[2024-08-23 06:57] VITALS: BP 100/74
[2024-08-23] MEDS: NICODERM TRANSDERMAL 14 MG TRANSDERM (08:29)
[2024-08-23] MEDS: FARXIGA 10 MG PO (08:30)
[2024-08-23] MEDS: DITROPAN 2.5 MG PO ×2 (08:30→20:19)
[2024-08-23] MEDS: ELIQUIS 5 MG PO ×2 (08:30→20:19)
[2024-08-23] MEDS: PROTONIX 40 MG PO (08:30)
[2024-08-23] MEDS: PROSCAR 5 MG PO (08:30)
[2024-08-23] MEDS: ASPIR LOW (ENTERIC COATED) 81 MG PO (08:30)
[2024-08-23] MEDS: PLAVIX 75 MG PO (08:30)
[2024-08-23 14:14] VITALS: BP 103/48
[2024-08-23 16:44] VITALS: BP 122/85
[2024-08-23] MEDS: LIPITOR 40 MG PO (19:16)
[2024-08-23 20:08] VITALS: BP 101/67
--- NOTE | 2024-08-23 21:00 | PTCARENOTE ---
Assumed care of pt from evan RN. Walking rounds completed. Pt is AAOx3. MUELLER. SR w/ BBB on the tele monitor. HR 80s. BP stable. B/L radial pulses palpable. Right DP pulse present via doppler. Left DP pulse palpable. +2 right LE edema present. Pt
on RA. POX 96%. Lung sounds diminished throughout. Deep breathing and IS encouraged. Abdomen soft/nontender. +BS. Pt voiding w/o issue. +Gas. No BM. Right groin and right LE MONSTER dressings intact/blinking green. Old drainage noted on both dressings.
Right groin tender to palpation. B/L LE warm. PIV x2 intact. No c/o pain at this time. See worklist for full nursing assessment and interventions. Call puente within reach.
[2024-08-24] VITALS (10 sets, daily range): BP systolic 87–128; BP diastolic 58–76; PULSE 91; O2SAT 98; BMI 30.1
--- NOTE | 2024-08-24 00:33 | PTCARENOTE ---
No acute change in assessment. Pt is SR w/ BBB on the tele monitor. HR 70s. BP 93/58. MAP 71. Denies lightheadedness/dizziness. Pt on RA.
POX 96%. B/L Lower extremity neuro checks unchanged - see worklist. Right groin / right LE MONSTER dressings unchanged. Pt voiding in urinal as needed. Call puente within reach.
[2024-08-24 04:07] LABS: Hematocrit 26.5 % (39.0-52.0); Hemoglobin 8.8 g/dL (13.0-18.0); Mean Corp Hgb Conc. 33.2 g/dL (33.0-37.0); Mean Corpuscular Hgb 30.2 pg (27.0-31.0); Mean Corpuscular Volume 91.1 fL (80.0-94.0); Platelet Count 131 10^3/uL (130-400); Red Blood Cell Count 2.91 10^6/uL (4.70-6.10); Red Cell Dist. Width 15.4 % (11.5-14.5); White Blood Cell Count 8.3 10^3/uL (4.8-10.8)
--- NOTE | 2024-08-24 04:21 | PTCARENOTE ---
No acute change in assessment. Pt is SR w/ BBB on the tele monitor. HR 70s. BP stable. Pt is 96% on RA. Right groin and right LE MONSTER dressings unchanged. Right/left LE neurological assessment unchanged. Pt voiding as needed. Labs drawn and sent.
Call puente within reach.
[2024-08-24 04:31] LABS: Blood Urea Nitrogen 32 mg/dl (9-20); Calcium 8.9 mg/dl (8.4-10.2); Carbon Dioxide 25 mmol/L (22-30); Chloride 109 mmol/L (98-107); Estimated Creatinine Clearance 55 ml/min; Glucose 95 mg/dl (70-99); Magnesium 1.7 mg/dl (1.6-2.3); Potassium 4.3 mmol/L (3.5-5.1); Sodium 139 mmol/L (135-145); eGFR > 60.00
--- NOTE | 2024-08-24 07:38 | W.PN.VS ---
Today's Communication / Plan
-
Seen and assessed with Dr. Garcia
Assessment/Plan
-
Assessment: 78-year-old male POD #8 Reoperative right groin surgery, endovascular exclusion of right common iliac artery aneurysm (overlapping Endologix Ovation stents 12 mm x 160 mm; 12 mm x 140 mm), coil embolization of right internal iliac artery
(7 mm, 9 mm, 12 mm Concerto detachable coils), right common femoral artery endarterectomy with patch angioplasty using bovine pericardium, right common femoral artery to tibioperoneal trunk bypass using 6 mm ring reinforced PTFE, completion
arteriogram, right lower extremity
Plan:
Cardiology consult for hypotension
OOB/ambulate
PT/OT
Case management for rehab placement
Smoking cessation education
Continue encourage incentive spirometry
Subjective Data
-
Date of Service: August 24, 2024
Patient seen at bedside this a.[email or web address] Garcia. Patient offers no complaints at this time. All blood pressure medications held besides lisinopril for blood for hypotension.
Objective Data
-
Vital Signs
Temp Pulse Resp BP Pulse Ox
98 F 92 16 113/62 96
08/24/24 03:49 08/24/24 07:00 08/24/24 03:49 08/24/24 05:53 08/24/24 03:49
Intake and Output
08/23/24 08/24/24 08/25/24
06:59 06:59 06:59
Intake Total 480 / 480
Output Total 700 / 700 1700 / 1700
Balance -220 / -220 -1700 / -1700
Intake:
Oral fluids 480 / 480
Output:
Urine, Voided 700 / 700 1700 / 1700
Other:
Number of approximated MODERATE 3
amounts of urine
Number of approximated LARGE 3
amounts of urine
How many times incontinent 1
SATURATED amount urine
Lab Results
08/24/24 03:48
08/24/24 03:48
Calcium 8.9 mg/dl (8.4-10.2) 08/24/24 03:48
Magnesium 1.7 mg/dl (1.6-2.3) 08/24/24 03:48
Physical Exam
-
No apparent distress, resting in the chair
No tachycardia
No dyspnea on room air
ABD nontender, nondistended
Right groin dressing intact, no evidence of hematoma
Right distal calf dressing clean, dry, intact, soft, flat. Staple line well-approximated, clean, dry, intact
Right DP and PT pulse by Doppler, right foot warm
leg soft
--- NOTE | 2024-08-24 09:04 | W.PN.UPDATE ---
Update Note
Progress Note Update
CDI:
Physician Documentation Request
Admit Date: 08/18/24 06:00
Patient admitted for peripheral vascular disease.
08/18 Anesthesia: 'Input Totals- Normosol:1100 mL, NS-0.9%:600 mL...Blood Loss:300 mL'
08/20 Vascular Surgery PN: 'Patient states he was slightly lightheaded when getting out of bed yesterday. Blood pressures are on the soft side most of the day.'
Laboratory Tests
08/13/24 08/18/24 08/20/24
09:23 14:31 04:58
Hgb 13.8 12.2 L 10.1 L
Hct 41.7 36.8 L 30.6 L
Based on the above, could you clarify in the progress notes, the appropriate diagnosis, if significant, that supports the above abnormalities and additional evaluation, monitoring and/or treatment rendered:
Acute anemia multifactorial blood loss and hemodilution likely d/t open surgical procedure and IVF given for hypotension. Pt also newly on antihypertensive medications.
[2024-08-24] MEDS: NICODERM TRANSDERMAL 14 MG TRANSDERM (09:21)
[2024-08-24] MEDS: PLAVIX 75 MG PO (09:21)
[2024-08-24] MEDS: PROTONIX 40 MG PO (09:21)
[2024-08-24] MEDS: FARXIGA 10 MG PO (09:22)
[2024-08-24] MEDS: PROSCAR 5 MG PO (09:22)
[2024-08-24] MEDS: ELIQUIS 5 MG PO ×2 (09:23→19:58)
[2024-08-24] MEDS: DITROPAN 2.5 MG PO ×2 (09:23→19:58)
[2024-08-24] MEDS: ASPIR LOW (ENTERIC COATED) 81 MG PO (09:23)
--- NOTE | 2024-08-24 09:24 | CON.CAR ---
Addendum entered and electronically signed by Chad Clarke DO 08/24/24 13:56:
I saw and examined the patient.
The Retail Customer Service Specialist's note was reviewed and I agree with the note.
Comment:
Plan:
Multifactorial hypotension. Antihypertensive currently on hold since 2009. Improvement in blood pressure with resuming low-dose Coreg 3.125 mg twice daily. Would consider resuming lisinopril as an outpatient and hold amlodipine and monitor blood
pressures.
Check limited echo to reevaluate left ventricular systolic function.
Check EKG, history of chronic left bundle branch block.
Check neck ultrasound given discrepancy of upper extremity blood pressures.
Continue post op management by vascular.
He is status post RCA PCI July 17, 2024, continue Plavix.
Continue Eliquis
Smoking cessation is a must and was discussed. The patient admits to wanting another cigarette.
Monitor H/H, likely postop anemia.
Discussed with nursing.
Original Note:
Consultation
Consultation Request
Date/Time Consultation Requested: 08/23/2024
Date/Time Consultation Performed: 08/24/2024
Requesting Provider: HUONG Hawkins
Performing Provider: Edita Albert PA-C for Dr. Clarke
Reason for Consultation: Hypotension
Medical History
-
Chief Complaint: altered sensation RLE
History of Present Illness:
Patient is a 78 yo M with PMH of coronary artery disease status post RCA stent July 2024, severe PVD/PAD AAA repair with endovascular graft, iliac artery aneurysms, carotid disease s/p R CEA, HTN, HLD, ongoing tobacco use who presented 08/18/2024 for
elective vascular surgery secondary to chronic limb ischemia/pain. Patient was recently admitted in July 2024 after having abnormal stress test with cardiomyopathy and underwent RCA SHUN 07/17/2024. He was started on GDMT with Coreg, lisinopril,
Farxiga given cardiomyopathy. On 08/18/2024 he underwent endovascular exclusion of right common iliac artery aneurysm (overlapping Endologix Ovation stents 12 mm x 160 mm; 12 mm x 140 mm), coil embolization of right internal iliac artery (7 mm, 9 mm,
12 mm Concerto detachable coils), right common femoral artery endarterectomy with patch angioplasty using bovine pericardium, right common femoral artery to tibioperoneal trunk bypass using 6 mm ring reinforced PTFE, completion arteriogram, right
lower extremity. Patient developed hypotension 08/22/2024 resulting in holding of antihypertensive agents. Cardiology now being consulted to assist in hypotension management.
Patient reports he is feeling well at time of consult. He is does note right leg pain and some numbness in his foot. He denies chest pain, shortness of breath, dizziness, lightheadedness
PMH:
Coronary artery disease
AAA repair with endovascular graft
iliac artery aneurysms
carotid disease s/p R CEA
HTN
HLD
ongoing tobacco use
Past Medical History
Past Medical History: Other (in HPI)
Social History
Tobacco: Smoker
Alcohol: None
Personal:
Living: With Family
Employment: Retired
Family History
Family History: Reviewed & Not Pertinent
Allergies / Home Medications
Allergy/AdvReac Type Severity Reaction Status Date / Time
No Known Allergies Allergy Verified 08/10/24 13:10
�Medication �Instructions �Recorded �Confirmed �Type
aspirin 81 mg tablet,delayed 81 mg PO DAILY Blood Clot 02/01/15 08/18/24 History
release (Ecotrin Low Strength) Prevention/Tx
finasteride 5 mg tablet 5 mg PO DAILY bph 02/01/15 08/18/24 History
amlodipine 5 mg tablet 5 mg PO DAILY Blood Pressure 03/12/18 08/18/24 History
atorvastatin 40 mg tablet 40 mg PO QPM High Cholesterol 07/13/24 08/18/24 History
hydrochlorothiazide 25 mg tablet 25 mg PO QPM Blood Pressure 07/13/24 08/18/24 History
oxybutynin chloride 5 mg 5 mg PO DAILY Urinary Issue 07/13/24 08/18/24 History
tablet,extended release 24 hr
carvedilol 3.125 mg tablet 3.125 mg PO BID Blood pressure 90 07/21/24 08/18/24 Rx
days #180 tabs
clopidogrel 75 mg tablet 75 mg PO DAILY Antiplatelet 90 07/21/24 08/18/24 Rx
days #90 tabs
dapagliflozin propanediol 10 mg 10 mg PO DAILY Heart Failure 90 07/21/24 08/18/24 Rx
tablet days #90 tabs
lisinopril 20 mg tablet 20 mg PO DAILY Blood pressure 90 07/21/24 08/18/24 Rx
days #90 tabs
pantoprazole 40 mg tablet,delayed 40 mg PO DAILY Gastrointestinal 08/10/24 08/18/24 History
release Issue
apixaban 5 mg tablet (Eliquis) 5 mg PO BID Blood Clot 08/18/24 08/18/24 History
Prevention/Tx
Physical Exam
Vital Signs
Temp Pulse Resp BP Pulse Ox
98 F 91 16 87/71 98
08/24/24 03:49 08/24/24 09:18 08/24/24 03:49 08/24/24 09:18 08/24/24 09:18
GEN: No distress, awake, Ox3, lying in bed
HEENT: supple, anicteric, mmm, poor dentition with multiple missing teeth
LUNGS: CTA, no wheezes/rales
CV: Reg, S1/S2, 1/6 syst murmur, no rub or gallop
ABD: soft, BS+, NT/ND
EXT: +1-2 edema right lower extremity; indwelling drain in calf. No clubbing, cyanosis edema of left lower extremity
NEURO: Gross non-focal
SKIN: No rash, warm, dry, pink
Lab Results
08/24/24 03:48
08/24/24 03:48
Troponin I < 0.012 ng/ml 08/19/24 21:47
Impression / Plan
-
Primary Head Concierge: Dr. Shaikh
Vascular surgeon: Dr. Daley
Assessment:
Presented 08/18 for elective vascular surgery secondary to chronic pain/limb ischemia
PAD/RLE ischemia
s/p Reoperative right groin surgery, endovascular exclusion of right common iliac artery aneurysm (overlapping Endologix Ovation stents 12 mm x 160 mm; 12 mm x 140 mm), coil embolization of right internal iliac artery (7 mm, 9 mm, 12 mm Concerto
detachable coils), right common femoral artery endarterectomy with patch angioplasty using bovine pericardium, right common femoral artery to tibioperoneal trunk bypass using 6 mm ring reinforced PTFE, completion arteriogram, right lower extremity
Severe cardiomyopathy with ejection fraction of 15 to 20% - 07/15/2024
CAD
status post RCA stent on 07/17/2024
AAA repair with endovascular graft
iliac artery aneurysms
carotid disease s/p R CEA
LBBB
HTN
HLD
BPH
GERD
COPD/ongoing tobacco use
ECHO 06/2013: EF 60%, moderate to severe concentric LVH, no regional wall motion abnormalities noted, mildly dilated LA, mild MR, dilated aortic root
Echo 07/15/24: EF 15 to 20%, global hypokinesis with regional variations, mild concentric LVH, stage I diastolic dysfunction, mild to moderate MR, no pericardial effusion, ascending aorta diameter 4.3 cm
Echo 08/24/2024 (limited study): Pending
Catheterization 07/17/24: Successful stenting of mid RCA with placement of 2.75 x 26 mm Alejandro stent, LVEDP 21
Plan:
-s/p Reoperative right groin surgery, endovascular exclusion of right common iliac artery aneurysm (overlapping Endologix Ovation stents 12 mm x 160 mm; 12 mm x 140 mm), coil embolization of right internal iliac artery (7 mm, 9 mm, 12 mm Concerto
detachable coils), right common femoral artery endarterectomy with patch angioplasty using bovine pericardium, right common femoral artery to tibioperoneal trunk bypass using 6 mm ring reinforced PTFE, completion arteriogram, right lower extremity
on 08/18/2024
-Right lower extremity edema most likely reperfusion edema given gnosticism of blood flow. Keep elevated.
-Patient developed hypotension on 08/22/2024. Blood pressure improved with 500 cc IV fluid bolus. Would be cautious not to give too much volume given cardiomyopathy and EF of 15 to 20% in July 2024
-Antihypertensive agents on hold since 08/22/2024. Blood pressure now improving. Would resume Coreg 3.125 mg twice a day with hold parameters for SBP less than 100 mmhg. If blood pressure allows consider resuming low-dose lisinopril. Amlodipine
would be last antihypertensive agent added back.
-While in room blood pressure was checked on left arm and was 87/71. Blood pressure cuff was then put on right arm and repeated at 116/69. Would check arterial ultrasound of left upper extremity to rule out subclavian stenosis
-Check EKG today. Patient has chronic left bundle branch block
-Coronary artery disease status post RCA stent 07/17/2024. Continue Atorvastatin, Plavix and Eliquis
-LDL 55 in July 2024. Atorvastatin 40 mg daily has been continued
-Smoking cessation encouraged, but patient does not believe he can quit at this point and is asking when he can have a cigarette
-EF 15-20% by echo on echo July 2024 prior to PCI. Will repeat limited echo this admission
-Monitor hemoglobin, preop 12.2, currently 8.8. Likely due to blood loss from surgery
HPI:
Patient is a 78 yo M with PMH of coronary artery disease status post RCA stent July 2024, severe PVD/PAD AAA repair with endovascular graft, iliac artery aneurysms, carotid disease s/p R CEA, HTN, HLD, ongoing tobacco use who presented 08/18/2024 for
elective vascular surgery secondary to chronic limb ischemia/pain. Patient was recently admitted in July 2024 after having abnormal stress test with cardiomyopathy and underwent RCA SHUN 07/17/2024. He was started on GDMT with Coreg, lisinopril,
Farxiga given cardiomyopathy. On 08/18/2024 he underwent endovascular exclusion of right common iliac artery aneurysm (overlapping Endologix Ovation stents 12 mm x 160 mm; 12 mm x 140 mm), coil embolization of right internal iliac artery (7 mm, 9 mm,
12 mm Concerto detachable coils), right common femoral artery endarterectomy with patch angioplasty using bovine pericardium, right common femoral artery to tibioperoneal trunk bypass using 6 mm ring reinforced PTFE, completion arteriogram, right
lower extremity. Patient developed hypotension 08/22/2024 resulting in holding of antihypertensive agents. Cardiology now being consulted to assist in hypotension management.
Patient reports he is feeling well at time of consult. He is does note right leg pain and some numbness in his foot. He denies chest pain, shortness of breath, dizziness, lightheadedness
Data Reviewed
-
EKG: Report Reviewed by me, Discussed with Physician and Discussed with Patient
Labs: Labs Reviewed by me, Discussed with Physician, Discussed with Nurse and Discussed with Patient
[2024-08-24] MEDS: MIRALAX 17 GRAMS PO (14:10)
--- NOTE | 2024-08-24 16:20 | CM ---
Reviewed chart. Telephone call to [facility]. Liaison to review referral. Will need to know how long the MONSTER dressings need to stay on. Will continue to follow to confirm discharge plan. The discharge plan is to go to [facility]. at [place]
if approved for admission and bed available when medically stable.
[2024-08-24] MEDS: LIPITOR 40 MG PO (19:08)
[2024-08-24] MEDS: COREG 3.125 MG PO (19:59)
--- NOTE | 2024-08-24 20:30 | PTCARENOTE ---
Assumed care of pt from evan RN. Walking rounds completed. Pt is AAOx3. Pt states he is upset about his current condition and that he has to remain in the hospital. Emotional support provided. Pt is SR w/ BBB on the tele monitor. HR 70s. BP
122/75. MAP 91. B/L radial pulses palpable. Left DP pulse palpable. Right DP pulse present via doppler. Right LE +2 edema present. Pt on RA. POX 96%. Lung sounds diminished at the bases. Deep breathing and IS encouraged. Abdomen soft/nontender. +BS.
+Gas. Pt states he had a BM today. Pt voiding w/o issue. Right groin and right lower leg MONSTER dressing's intact w/ light blinking green. Old drainage noted on both MONSTER dressings. B/L LE warm - see worklist for full neurovascular checks. PIV x2
intact. See worklist for full nursing assessment and interventions. Call puente within reach.
--- NOTE | 2024-08-24 23:59 | PTCARENOTE ---
Assessment unchanged. Pt is SR w/ BBB on tele monitor. HR 70s. BP 102/60. MAP 72. Pt is 96% on RA. Right LE MONSTER dressing x2 unchanged. Both MONSTER dressings blinking green. B/L LE neurovascular checks unchanged. Pt voiding as needed. Call puente within
reach.
[2024-08-25 02:56] VITALS: BP 101/61
[2024-08-25 03:15] LABS: Hematocrit 26.2 % (39.0-52.0); Hemoglobin 8.7 g/dL (13.0-18.0); Mean Corp Hgb Conc. 33.2 g/dL (33.0-37.0); Mean Corpuscular Hgb 30.3 pg (27.0-31.0); Mean Corpuscular Volume 91.3 fL (80.0-94.0); Mean Platelet Volume 9.9 fL (7.4-10.4); Platelet Count 117 10^3/uL (130-400); Red Blood Cell Count 2.87 10^6/uL (4.70-6.10); Red Cell Dist. Width 15.3 % (11.5-14.5); White Blood Cell Count 9.3 10^3/uL (4.8-10.8)
[2024-08-25 03:46] LABS: Blood Urea Nitrogen 31 mg/dl (9-20); Carbon Dioxide 27 mmol/L (22-30); Chloride 111 mmol/L (98-107); Estimated Creatinine Clearance 55 ml/min; Glucose 96 mg/dl (70-99); Magnesium 1.8 mg/dl (1.6-2.3); Potassium 4.5 mmol/L (3.5-5.1); Sodium 140 mmol/L (135-145); eGFR > 60.00
--- NOTE | 2024-08-25 04:47 | PTCARENOTE ---
Assessment unchanged. VSS. SR w/ BBB on the tele monitor. HR 70s. POX 96% on RA. Pt voiding as needed. Right LE and right groin MONSTER dressing unchanged. B/L LE neurovascular assessment unchanged - see worklist. Pt repositioned in bed. Call puente
within reach.
[2024-08-25 05:19] VITALS: BP 113/77
[2024-08-25 06:41] VITALS: BMI 29.9
[2024-08-25 07:41] VITALS: BP 104/77
--- NOTE | 2024-08-25 07:51 | PTCARENOTE ---
pt received from previous RN, oriented, OOB in chair. SR w/ BBB on the monitor, HR 70s. SBP 100s. palpable radial pulses, DP pulses verified by Doppler. +2 RLE edema, [employer] Renuka Lee aware and at bedside. pt on RA, 96% POX. lungs diminished in
bases. IS encouraged. pt abdomen s/n, denies n/v. diet tolerated well. voids. R groin and RLE MONSTER dressings in place, old drainage. HUONG Grayson removed MONSTER dressings, sites GLASS INSTALLER, approximated, rashaad in place. PIV. see worklist for VS, I&O, and
assessment.
--- NOTE | 2024-08-25 08:22 | W.PN.VS ---
Today's Communication / Plan
-
See below.
Assessment/Plan
-
Assessment: 78-year-old male POD #9 Reoperative right groin surgery, endovascular exclusion of right common iliac artery aneurysm (overlapping Endologix Ovation stents 12 mm x 160 mm; 12 mm x 140 mm), coil embolization of right internal iliac artery
(7 mm, 9 mm, 12 mm Concerto detachable coils), right common femoral artery endarterectomy with patch angioplasty using bovine pericardium, right common femoral artery to tibioperoneal trunk bypass using 6 mm ring reinforced PTFE, completion
arteriogram, right lower extremity
Plan:
Appreciate cardiology consultation for antihypertensive medications in setting of hypotension, currently patient's blood pressure is stable on beta-wolfgang with additional antihypertensives held, possible clearance for discharge to rehab pending
cardiology recommendations
Continue bowel regimen
OOB/ambulate
PT/OT
Case management for rehab placement
Smoking cessation education
Continue encourage incentive spirometry
Subjective Data
-
Date of Service: August 25, 2024
Patient seen and examined at bedside, reports continued discomfort to right lower extremity calf/foot with ambulation, at rest patient has no pain. Patient does endorse that he was experiencing numbness to right foot for months prior to surgery it
has remained unchanged but not worse. Denies nausea, vomiting, fever, and chills. Patient endorses continued flatus and bowel movement yesterday.
Objective Data
-
Vital Signs
Temp Pulse Resp BP Pulse Ox
98.6 F 91 18 104/77 96
08/25/24 07:49 08/25/24 08:00 08/25/24 07:49 08/25/24 07:41 08/25/24 07:55
Intake and Output
08/24/24 08/25/24 08/26/24
06:59 06:59 06:59
Intake Total 200 / 200
Output Total 1700 / 1700 1950 / 1950
Balance -1700 / -1699 -1949 200 / 200
Intake:
Oral fluids 200 / 200
Output:
Urine, Voided 1699
Other:
Number of approximated MODERATE 3
amounts of urine
How many times incontinent 1
SATURATED amount urine
Lab Results
08/25/24 03:04
08/25/24 03:04
Calcium 9.0 mg/dl (8.4-10.2) 08/25/24 03:04
Magnesium 1.8 mg/dl (1.6-2.3) 08/25/24 03:04
Physical Exam
-
No apparent distress, resting in the chair
No tachycardia
No dyspnea on room air
ABD nontender, nondistended
Right groin donny dressing removed, site CDI, suture line well-approximated, rashaad and nylon present
Right distal calf dressing removed, staple line well-approximated, clean, dry, intact
Right DP and PT pulse by Doppler, right foot warm
leg soft, +2 right lower extremity edema
[2024-08-25] MEDS: ASPIR LOW (ENTERIC COATED) 81 MG PO (08:34)
[2024-08-25] MEDS: PROTONIX 40 MG PO (08:34)
[2024-08-25] MEDS: FARXIGA 10 MG PO (08:34)
[2024-08-25] MEDS: PLAVIX 75 MG PO (08:34)
[2024-08-25] MEDS: DITROPAN 2.5 MG PO (08:34)
[2024-08-25] MEDS: ELIQUIS 5 MG PO (08:34)
[2024-08-25] MEDS: NICODERM TRANSDERMAL 14 MG TRANSDERM (08:34)
[2024-08-25] MEDS: MAGNESIUM OXIDE 500 MG PO (08:34)
[2024-08-25] MEDS: PROSCAR 5 MG PO (08:34)
[2024-08-25] MEDS: COREG 3.125 MG PO (08:41)
[2024-08-25] MEDS: TYLENOL 650 MG PO (08:42)
[2024-08-25] MEDS: MIRALAX 17 GRAMS PO (09:58)
--- NOTE | 2024-08-25 11:15 | CM ---
Addendum entered by Viktoriya Landaverde 08/25/24 11:57:
Met with Mr. rAias to review discharge plans. Reviewed transfer to [facility] at [place] for today. He is agreeable to going to [facility] [place] today.
Original Note:
Reviewed chart. [facility] [place] [facility] to check on bed availability. [facility] [place] will have a bed later this afternoon for Mr. Arias. Updated ROLL REPAIRER, and nursing. Medical work-up in progress. The discharge
plan is to go to [facility] [place] when medically stable.
[2024-08-25 11:27] VITALS: BP 116/74
--- NOTE | 2024-08-25 11:29 | PTCARENOTE ---
Addendum entered by Roopa Rader RN 08/25/24 11:34:
PRN miralax given
Original Note:
pt VSS, RLE placed in RUBÉN bandage as ordered. pt in bed resting. Doppler DP pulses present.
--- NOTE | 2024-08-25 11:35 | W.PN.CARDCBS ---
Today's Communication / Plan
-
Continue Coreg 3.125 mg twice a day and Farxiga
Keep off lisinopril, hydrochlorothiazide and amlodipine
Continue Plavix and Eliquis
Outpatient cardiology follow-up has been arranged
Impression / Plan
-
Primary [employer]: Dr. Shaikh
Vascular surgeon: Dr. Daley
Assessment:
Presented 08/18 for elective vascular surgery secondary to chronic pain/limb ischemia
PAD/RLE ischemia
s/p Reoperative right groin surgery, endovascular exclusion of right common iliac artery aneurysm (overlapping Endologix Ovation stents 12 mm x 160 mm; 12 mm x 140 mm), coil embolization of right internal iliac artery (7 mm, 9 mm, 12 mm Concerto
detachable coils), right common femoral artery endarterectomy with patch angioplasty using bovine pericardium, right common femoral artery to tibioperoneal trunk bypass using 6 mm ring reinforced PTFE, completion arteriogram, right lower extremity
Severe cardiomyopathy with ejection fraction of 15 to 20% - 07/15/2024
CAD
status post RCA stent on 07/17/2024
AAA repair with endovascular graft
iliac artery aneurysms
carotid disease s/p R CEA
LBBB
HTN
HLD
BPH
GERD
COPD/ongoing tobacco use
ECHO 06/2013: EF 60%, moderate to severe concentric LVH, no regional wall motion abnormalities noted, mildly dilated LA, mild MR, dilated aortic root
Echo 07/15/24: EF 15 to 20%, global hypokinesis with regional variations, mild concentric LVH, stage I diastolic dysfunction, mild to moderate MR, no pericardial effusion, ascending aorta diameter 4.3 cm
Echo 08/24/2024 (limited study): Echo 20 to 25%. Moderate concentric LVH. Mid anteroseptal wall is aneurysmal. Septum, inferior and inferolateral reed are hypokinetic. Trivial pericardial effusion. Mild to moderate MR.
Catheterization 07/17/24: Successful stenting of mid RCA with placement of 2.75 x 26 mm Alejandro stent, LVEDP 21
Plan:
-s/p Reoperative right groin surgery, endovascular exclusion of right common iliac artery aneurysm (overlapping Endologix Ovation stents 12 mm x 160 mm; 12 mm x 140 mm), coil embolization of right internal iliac artery (7 mm, 9 mm, 12 mm Concerto
detachable coils), right common femoral artery endarterectomy with patch angioplasty using bovine pericardium, right common femoral artery to tibioperoneal trunk bypass using 6 mm ring reinforced PTFE, completion arteriogram, right lower extremity
on 08/18/2024
-Slight improvement in right lower extremity edema most likely reperfusion edema given jehovah's witness of blood flow. Keep elevated and wrapped
-Patient developed hypotension on 08/22/2024. Blood pressure improved with 500 cc IV fluid bolus. Would be cautious not to give too much volume given cardiomyopathy and EF of 20-25%
-Found to have hypotensive postop. Resumed Coreg 3.125 mg twice a day with hold parameters for SBP less than 100 mmhg and patient seems to be tolerating.given soft blood pressure would continue to hold lisinopril, amlodipine and HCTZ. Consider
starting low-dose lisinopril as outpatient if blood pressure allows.
-Limited echo 08/24/2024 does show some improvement LVEF at 20 to 25% with septum, inferior and inferior lateral wall hypokinesis. Continue GDMT as blood pressure allows. Will repeat full echo as outpatient in September to reassess EF. If remains
reduced could consider G[employer] MANAGER ICD
-Upper extremity arterial ultrasound 08/24/2024 was negative for subclavian stenosis or occlusion
-Coronary artery disease status post RCA stent 07/17/2024. Continue Atorvastatin, Plavix and Eliquis. Patient does not require triple therapy with aspirin from cardiac standpoint.
-LDL 55 in July 2024. Atorvastatin 40 mg daily has been continued
-Smoking cessation encouraged, but patient does not believe he can quit at this point and is asking when he can have a cigarette
-Monitor hemoglobin, preop 12.2, currently 8.7. Likely due to blood loss from surgery
Outpatient cardiology follow-up arranged. Stable for discharge to rehab
HPI:
Patient is a 78 yo M with PMH of coronary artery disease status post RCA stent July 2024, severe PVD/PAD AAA repair with endovascular graft, iliac artery aneurysms, carotid disease s/p R CEA, HTN, HLD, ongoing tobacco use who presented 08/18/2024 for
elective vascular surgery secondary to chronic limb ischemia/pain. Patient was recently admitted in July 2024 after having abnormal stress test with cardiomyopathy and underwent RCA SHUN 07/17/2024. He was started on GDMT with Coreg, lisinopril,
Farxiga given cardiomyopathy. On 08/18/2024 he underwent endovascular exclusion of right common iliac artery aneurysm (overlapping Endologix Ovation stents 12 mm x 160 mm; 12 mm x 140 mm), coil embolization of right internal iliac artery (7 mm, 9 mm,
12 mm Concerto detachable coils), right common femoral artery endarterectomy with patch angioplasty using bovine pericardium, right common femoral artery to tibioperoneal trunk bypass using 6 mm ring reinforced PTFE, completion arteriogram, right
lower extremity. Patient developed hypotension 08/22/2024 resulting in holding of antihypertensive agents. Cardiology now being consulted to assist in hypotension management.
Patient reports he is feeling well at time of consult. He is does note right leg pain and some numbness in his foot. He denies chest pain, shortness of breath, dizziness, lightheadedness
Progress Note - [employer]
Subjective
Date of Service: August 25, 2024
Patient seen and examined. Patient lying in bed. Reports he is feeling well and denies chest pain, shortness of breath, dizziness lightheadedness or palpitations. Still telling me he wants to have a cigarette
Objective
Labs:
08/25/24 03:04
08/25/24 03:04
Labs
Hgb 8.7 g/dL (13.0-18.0) L 08/25/24 03:04
Hct 26.2 % (39.0-52.0) L 08/25/24 03:04
Plt Count 117 10^3/uL (130-400) L 08/25/24 03:04
PT 14.8 Sec (11.4-14.6) H 08/19/24 03:47
INR 1.12 08/19/24 03:47
APTT Cancelled 08/20/24 15:25
Sodium 140 mmol/L (135-145) 08/25/24 03:04
Potassium 4.5 mmol/L (3.5-5.1) 08/25/24 03:04
BUN 31 mg/dl (9-20) H 08/25/24 03:04
Creatinine 1.2 mg/dL (0.7-1.3) 08/25/24 03:04
Glucose 96 mg/dl (70-99) 08/25/24 03:04
Vital Signs and I&O:
Vital Signs
Temp Pulse Resp BP Pulse Ox
98.8 F 71 18 116/74 97
08/25/24 11:31 08/25/24 11:30 08/25/24 11:31 08/25/24 11:27 08/25/24 11:31
Vital Signs
Temp Pulse Resp BP Pulse Ox
98.8 F 71 18 116/74 97
08/25/24 11:31 08/25/24 11:30 08/25/24 11:31 08/25/24 11:27 08/25/24 11:31
Intake & Output
08/23/24 08/24/24 08/25/24 08/26/24
06:59 06:59 06:59 06:59
Intake Total 480 / 480 200 / 200
Output Total 700 / 700 1700 / 1700 1949 / 1950 100 / 100
Balance -220 / -220 -1700 / -1700 -1949 / -1949 100 / 100
Physical Exam
Physical Exam
GEN: No distress, awake, Ox3, lying in bed
HEENT: supple, anicteric, mmm, poor dentition with multiple missing teeth
LUNGS: CTA, no wheezes/rales
CV: Reg, S1/S2, 1/6 syst murmur, no rub or gallop
ABD: soft, BS+, NT/ND
EXT: +1 edema right lower extremity; leg wrapped in Pancho dressing. No clubbing, cyanosis edema of left lower extremity
NEURO: Gross non-focal
SKIN: No rash, warm, dry, pink
--- NOTE | 2024-08-25 11:50 | WOUNDNOTE ---
[facility] RN NOTE: Reviewed chart, spoke to RNRoopa and met with patient. Patient admitted for vascular surgery on 08/18. Per Roopa patient complained of buttock pain this morning. Upon assessment Roopa noted a stage 2 PI on coccyx and left gluteal cleft.
The wound has scant amount of drainage and pink wound bed. Roopa appropriately applied silicone border foam to wound. Will recommend daily Honey Gel to wound daily. Instructed patient to keep off-loading of sacrum and change position frequently.
Heels intact. Patient demonstrates ability to turn in bed and ambulates to BR with assistance. Appetite good. Air cushion to chair. Patient has several several co-morbidities putting him at risk for wounds including COPD, smoking, and current
multiple anti-coagulant use. Plan is for discharge to [facility] today.
--- NOTE | 2024-08-25 13:42 | W.DS.TRANS ---
DC Summary - [employer]
-
Discharge Instructions:
Discharge Diagnosis/Procedures Right lower extremity bypass with exclusion of
right common iliac artery aneurysm
Diet As tolerated,Low Cholesterol
Activity No strenuous activity
Driving Restrictions Not until seen by your Dr
Bathing Restrictions OK to Shower
Instructions:
Stand-Alone Forms: Vascular Surg Discharge Instr
Changes to Home Medications: Yes
Discharge Medications:
DC Medications w/original date entered in [facility]
finasteride 5 mg tablet 5 mg PO DAILY bph 02/01/15
amlodipine 5 mg tablet 5 mg PO DAILY Blood Pressure 03/12/18
atorvastatin 40 mg tablet 40 mg PO QPM High Cholesterol 07/13/24
hydrochlorothiazide 25 mg tablet 25 mg PO QPM Blood Pressure 07/13/24
oxybutynin chloride 5 mg tablet,extended release 24 hr 5 mg PO DAILY Urinary Issue 07/13/24
carvedilol 3.125 mg tablet 3.125 mg PO BID Blood pressure 90 days #180 tabs 07/21/24
clopidogrel 75 mg tablet 75 mg PO DAILY Antiplatelet 90 days #90 tabs 07/21/24
dapagliflozin propanediol 10 mg tablet 10 mg PO DAILY Heart Failure 90 days #90 tabs 07/21/24
lisinopril 20 mg tablet 20 mg PO DAILY Blood pressure 90 days #90 tabs 07/21/24
pantoprazole 40 mg tablet,delayed release 40 mg PO DAILY Gastrointestinal Issue 08/10/24
apixaban 5 mg tablet (Eliquis) 5 mg PO BID Blood Clot Prevention/Tx 08/18/24
acetaminophen 325 mg tablet 650 mg (2 x 325 mg) PO Q4HPRN PRN mild pain or temp >/= 100.4F #40 tabs 08/25/24
docusate sodium 100 mg capsule 100 mg PO BID AT 0800,1600 #60 caps 08/25/24
nicotine 14 mg/24 hr daily transdermal patch 14 mg transdermal DAILY #14 ea 08/25/24
oxycodone 5 mg tablet 5 mg PO Q4HPRN PRN moderate pain #14 tabs 08/25/24
polyethylene glycol 3350 17 gram oral powder packet 17 g PO DAILYPRN PRN no BM in 3 days #17 ea 08/25/24
Home Medication Changes
Stop aspirin 81 mg p.o. daily
Held:
amlodipine 5 mg tablet 5 mg PO DAILY Blood Pressure 03/12/18
hydrochlorothiazide 25 mg tablet 25 mg PO QPM Blood Pressure 07/13/24
lisinopril 20 mg tablet 20 mg PO DAILY Blood pressure 90 days #90 tabs 07/21/24
Started:
acetaminophen 325 mg tablet 650 mg (2 x 325 mg) PO Q4HPRN PRN mild pain or temp >/= 100.4F #40 tabs 08/25/24
docusate sodium 100 mg capsule 100 mg PO BID AT 0800,1600 #60 caps 08/25/24
nicotine 14 mg/24 hr daily transdermal patch 14 mg transdermal DAILY #14 ea 08/25/24
oxycodone 5 mg tablet 5 mg PO Q4HPRN PRN moderate pain #14 tabs 08/25/24
polyethylene glycol 3350 17 gram oral powder packet 17 g PO DAILYPRN PRN no BM in 3 days #17 ea 08/25/24
Pending Results: No
--- NOTE | 2024-08-25 14:40 | PTCARENOTE ---
pt discharged to [place] [facility], report called to Ronnie. CLARK and tele [email or web address]. pt transported via stretcher w/ all belongings to [place] via volunteer.
== END 2024-08-25 14:40 | DRG 271 ==
LOC: CVICU 06:00
PROVIDERS: Internal Medicine Interventional Cardiology; Nurse Practitioner; Nurse Practitioner Acute Care; Physician Assistant Medical; ADMITTING PHYSICIAN Surgery Vascular Surgery; CONSULT PHYSICIAN Internal Medicine; OTHER PHYSICIAN Nuclear Medicine Nuclear Cardiology; PRIMARYCARE PHYSICIAN Family Medicine
PROC: 04CK0ZZ Extirpation of Matter from Right Femoral Artery, Open Approach (ICD-10-PCS; 2024-08-18)
PROC: 04LE3DZ Occlusion of Right Internal Iliac Artery with Intraluminal Device, Percutaneous Approach (ICD-10-PCS; 2024-08-18)
PROC: 04VC3DZ Restriction of Right Common Iliac Artery with Intraluminal Device, Percutaneous Approach (ICD-10-PCS; 2024-08-18)
PROC: 04UK0KZ Supplement Right Femoral Artery with Nonautologous Tissue Substitute, Open Approach (ICD-10-PCS; 2024-08-18)
PROC: 041K0JL Bypass Right Femoral Artery to Popliteal Artery with Synthetic Substitute, Open Approach (ICD-10-PCS; 2024-08-18)
PROC: 30233N1 Transfusion of Nonautologous Red Blood Cells into Peripheral Vein, Percutaneous Approach (ICD-10-PCS; 2024-08-20)
DX: I72.3 Aneurysm of iliac artery (principal); D62 Acute posthemorrhagic anemia; I74.3 Embolism and thrombosis of arteries of the lower extremities; I70.221 Atherosclerosis of native arteries of extremities with rest pain, right leg; I72.4 Aneurysm of artery of lower extremity; F17.210 Nicotine dependence, cigarettes, uncomplicated; I25.5 Ischemic cardiomyopathy; I95.81 Postprocedural hypotension; I25.10 Atherosclerotic heart disease of native coronary artery without angina pectoris; I10 Essential (primary) hypertension; E78.00 Pure hypercholesterolemia, unspecified; J44.9 Chronic obstructive pulmonary disease, unspecified; N40.0 Benign prostatic hyperplasia without lower urinary tract symptoms; I44.7 Left bundle-branch block, unspecified; K21.9 Gastro-esophageal reflux disease without esophagitis; Z95.5 Presence of coronary angioplasty implant and graft; Z86.79 Personal history of other diseases of the circulatory system; Z79.82 Long term (current) use of aspirin; Z79.02 Long term (current) use of antithrombotics/antiplatelets; Z79.01 Long term (current) use of anticoagulants
CPT/HCPCS: 88304; 88311; 93308; 34718; 35666; 35700; 36415; 37242; 74176; 80048; 82330; 83735; 84484; 85025; 85027; 85610; 85730; 86850; 86900; 86901; 86920; 93005; 93930; 97116; 97129; 97163; 97167; 97530; 97535; 99406; C1768; C1769; C1892; C1894; P9016; Q9967

== ENCOUNTER → 2024-09-23 13:46 | Outpatient (REF) | payer MEDICARE, OTHER, SELFPAY | LOC: RAD 13:46 | PROVIDERS: ATTENDING PHYSICIAN Surgery Vascular Surgery; FAMILY PHYSICIAN Family Medicine | DX: I73.9 Peripheral vascular disease, unspecified (principal); I72.3 Aneurysm of iliac artery | CPT/HCPCS: 93922; 93925; 93978 ==

== ENCOUNTER → 2024-09-30 13:43 | Outpatient (REF) | payer MEDICARE, OTHER, SELFPAY ==
[2024-09-30 17:43] LABS: Urine Albumin 1+ (Neg - Trace); Urine Bilirubin Negative (Negative); Urine Character Clear (Clear); Urine Color Yellow; Urine Glucose 4+ (Negative); Urine Ketone Negative (Negative); Urine Leukocyte Negative (Negative); Urine Nitrite Negative (Negative); Urine Occult Blood 1+ (Negative); Urine Urobilinogen Negative (Neg - 1+)
[2024-09-30 18:06] LABS: Urine Bacteria Few (Negative); Urine Mucus Few; Urine Red Blood Cell 0-2 /HPF (0-2); Urine Squamous Cell 0-2 /LPF (Few); Urine White Cell 0-2 /HPF (0-5)
== END ==
LOC: CLAB 13:43
PROVIDERS: ATTENDING PHYSICIAN Specialist
DX: R31.29 Other microscopic hematuria (principal)
CPT/HCPCS: 81003; 81015

== ENCOUNTER → 2025-01-07 13:27 | Outpatient (REF) | payer MEDICARE, OTHER, SELFPAY | LOC: RAD 13:27 | PROVIDERS: ATTENDING PHYSICIAN Surgery Vascular Surgery; FAMILY PHYSICIAN Family Medicine | DX: I73.9 Peripheral vascular disease, unspecified (principal) | CPT/HCPCS: 93922; 93925 ==

== ENCOUNTER 2025-03-26 05:45 | Day surgery (SDC) | payer MEDICARE, OTHER, SELFPAY ==
[2025-03-26] VITALS (9 sets, daily range): BP systolic 85–124; BP diastolic 26–77; BMI 25.4
[2025-03-26] MEDS: TYLENOL 1000 MG PO (06:29)
[2025-03-26] MEDS: HEPARIN 5000 UNITS SC (06:30)
[2025-03-26] MEDS: NORMOSOL-R/PLASMALYTE-A 1000 IV (06:30)
--- NOTE | 2025-03-26 09:07 | W.IMMPOSTOP ---
Surgical Immed Post Op Note
-
Primary Surgeon: Karey
Assisting: Jason AYN
Pre-op Diagnosis: Left inguinal hernia
Post-op Diagnosis: Same
Procedure Performed: Open repair left inguinal hernia (Pradeep)
Anesthesia Type: MAC local
Specimen / Cultures: None
Estimated Blood Loss: 3cc
Complications: None immediate
Operative Findings: Left indirect sliding hernia involving colon, small bleeder on colon wall controlled with 3-0 vicryl suture; sac reduced but not ligated given colonic involvement; bard mesh 3' x 6' trimmed to size and secured with 2-0 maxon
suture
--- NOTE | 2025-03-26 09:10 | OR.RPT ---
Operative Report
Operative Report
Primary Surgeon: Karey
Assisting: Jason YAN
Pre-op Diagnosis: Left inguinal hernia
Post-op Diagnosis: Same
Procedure Performed: Open repair left inguinal hernia (Pradeep)
Anesthesia Type: MAC local
Specimen / Cultures: None
Estimated Blood Loss: 3cc
Complications: None immediate
Operative Findings: Left indirect sliding hernia involving colon, small bleeder on colon wall controlled with 3-0 vicryl suture; sac reduced but not ligated given colonic involvement; bard mesh 3' x 6' trimmed to size and secured with 2-0 maxon
suture
Date of Surgery: 03/26/25
Indications: This 79M developed a symptomatic left inguinal hernia and open repair was elected.
PROCEDURE: After informed consent was obtained, the patient was brought to the operative suite and placed supine on the operating table. The patient was sedated, prepped and draped in the usual sterile manner and an adequate local anesthetic was
administered using lidocaine with epinephrine.
An oblique incision was made with a #15 blade 3cm superior to the left pubic tubercle extending toward a point 3cm superior to the anterior superior iliac spine. The incision was carried down to the external oblique aponeurosis and the external ring
was identified. The aponeurosis was incised in punctate fashion laterally with the #15 blade. Metzenbaum sharan were inserted under the aponeurosis and used to elevate that layer and incise it parallel to its fibers. The ilioinguinal nerve was
identified and sacrificed. The external ring was opened and the cord structured were encircled with a dee drain. Cremasteric fibers were taken down with cautery. The sac was identified and dissected away from the cord structures and traced back
to the internal ring until preperitoneal fat was visible. The sac was opened and examined and noted to involve colon. A small bleeder on the colonic serosa was controlled with 3-0 vicryl suture. The hernia was reduced into the peritoneal cavity. A
small cord lipoma was excised. The floor was examined and was intact. The mesh was trimmed to size and secured medially at the pubic tubercle, inferiorly at the shelving edge of the inguinal ligament and superiorly to the conjoint tendon using 2-0
maxon interrupted sutures. Tails were created and crossed over the cord structures and secured to themselves with the same suture, taking care to ensure adequate space for the cord structures without constriction. The external oblique aponeurosis
was closed over the mesh with running 3-0 vicryl suture. Jono's fascia was closed with the same suture. The skin was closed with 3-0 vicryl deep dermal sutures and a running subcuticular 4-0 monocryl suture. Topical skin glue was then applied. All
surgical counts were reported as correct.
The patient tolerated the procedure well and was taken to the PACU in stable condition.
== END 2025-03-26 11:30 | disposition home or self-care (01) ==
LOC: SDS 05:45
PROVIDERS: ATTENDING PHYSICIAN Surgery
DX: K40.90 Unilateral inguinal hernia, without obstruction or gangrene, not specified as recurrent (principal)
CPT/HCPCS: 49525; C1781